=== PATIENT | male | born 1965 | race Caucasian/White ===

== ENCOUNTER 2019-05-31 19:05 | Emergency (ER) | payer MEDICARE ==
[2019-05-31] MEDS ORDERED: Sodium Chloride 0.9% 1000 ML 1,000 ML IV STA (19:23)
[2019-05-31] MEDS ORDERED: Keppra 500 MG/5 ML*** 1,000 MG in D5w 100ML Mini Bag 100 ML 100 ML IV ONE (19:23)
--- NOTE | 2019-05-31 19:23 | ERPHSYRPT ---
- History of Present Illness Time Seen by Provider: 05/31/19 19:19 Source: patient, family, EMS Exam Limitations: clinical condition Timing/Duration: today Severity: severe Deficits: no difficulties Baseline/Normal Cognition: alert oriented x 3 Current Cognition: poor alertness Baseline Gait: walks w/o assistance Associated Symptoms: seizures Allergies/Adverse Reactions: Penicillins Allergy (Verified 05/31/19 19:55) - Review of Systems Constitutional: No Fever, No Chills Eyes: No Symptoms Ears, Nose, & Throat: No Symptoms Respiratory: No Cough, No Dyspnea Cardiac: No Chest Pain, No Edema, No Syncope Abdominal/Gastrointestinal: No Abdominal Pain, No Nausea, No Vomiting, No Diarrhea Genitourinary Symptoms: No Dysuria Musculoskeletal: No Back Pain, No Neck Pain Skin: No Rash Neurological: Seizure, No Dizziness, No Focal Weakness, No Sensory Changes Psychological: No Symptoms Endocrine: No Symptoms Hematologic/Lymphatic: No Symptoms Immunological/Allergic: No Symptoms All Other Systems: Reviewed and Negative - Past Medical History Pertinent Past Medical History: Yes Neurological History: Other (remote head injury years ago) - Nursing Vital Signs Nursing Vital Signs: Initial Vital Signs Temperature 98.4 F 05/31/19 19:08 Pulse Rate 99 H 05/31/19 19:08 Respiratory Rate 16 05/31/19 19:08 Blood Pressure 147/77 05/31/19 19:08 O2 Sat by Pulse Oximetry 100 05/31/19 19:08 - Sorin Coma Scale Best Eye Response (Sorin): (4) open spontaneously Best Verbal Response (Sorin): (2) incomprehsible sounds Best Motor Response (Sorin): (5) localizes to pain [place] Total: 11 - Physical Exam General Appearance: moderate distress, other (post ictal) Eye Exam: bilateral eye: PERRL, EOMI Ears, Nose, Throat Exam: normal ENT inspection, moist mucous membranes Neck Exam: normal inspection, non-tender, supple Respiratory: normal breath sounds, lungs clear, airway intact, No respiratory distress Cardiovascular: regular rate/rhythm, No edema Gastrointestinal: soft, No tenderness, No distention Back Exam: normal inspection Extremity Exam: normal inspection, No pedal edema 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, 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 Coordination/Gait: normal finger to nose, normal gait Skin Exam: normal color, warm, dry, No rash - Course Nursing assessment & vital signs reviewed: Yes EKG Interpreted by Me: Sinus Rhythm, NORMAL AXIS, Non-specific ST Changes - CT Exams Head CT Interpretation: Tele-radiologist Report, No/Intracranial Hemorrhag, Old Stroke, Other Cervical Spine CT Interpretation: Tele-radiologist Report, No Fracture, Other (congenital fusion) Abdomen/Pelvis CT Interpretation: Tele-radiologist Report, No appendicitis, Other (cplon air fluid levels and stool partial obs) Ordered Tests: Active Orders 24 hr Category Date Time Status Accucheck STAT Care 05/31/19 19:23 Active EKG-ER Only STAT Care 05/31/19 19:23 Active Oxygen-ED Only Nasal Cannula 2 lpm Care 05/31/19 21:12 Active Pulse Oximetry (ED) STAT Care 05/31/19 19:23 Active Rectal Temperature STAT Care 05/31/19 19:23 Active ABDOMEN AND PELVIS W/0 CONTRAS [CT] Stat Exams 05/31/19 21:20 Taken CERVICAL SPINE WO CONTRAST [CT] Stat Exams 05/31/19 19:50 Taken CHEST 1 VIEW (PORTABLE) Stat Exams 05/31/19 21:19 Taken HEAD WITHOUT CONTRAST [CT] Stat Exams 05/31/19 19:24 Taken ACETAMINOPHEN Stat Lab 05/31/19 22:30 Completed BLOOD CULTURE Stat Lab 05/31/19 19:30 Received BLOOD CULTURE Stat Lab 05/31/19 21:27 Received CBC W DIFF Stat Lab 05/31/19 19:41 Completed CK (IN-HOUSE) [CK-Creatinine Phosphokinase] Stat Lab 05/31/19 19:45 Completed CMP Stat Lab 05/31/19 19:41 Completed CULTURE,URINE Stat Lab 05/31/19 20:14 Received ETHYL ALCOHOL Stat Lab 05/31/19 22:30 Completed Lactic Acid Stat Lab 05/31/19 19:38 Completed Lactic Acid Stat Lab 05/31/19 21:30 Completed SALICYLATE Stat Lab 05/31/19 22:30 Completed TROPONIN Q3H Lab 05/31/19 19:41 Completed TROPONIN Q3H Lab 05/31/19 21:24 Completed TROPONIN Q3H Lab 06/01/19 01:30 Ordered TROPONIN Q3H Lab 06/01/19 04:30 Ordered TROPONIN Q3H Lab 06/01/19 07:30 Ordered UA W/RFX UR CULTURE Stat Lab 05/31/19 20:14 Completed Urine Triage Profile Stat Lab 05/31/19 22:49 Completed VENOUS BLOOD GAS Stat Lab 05/31/19 21:31 Completed Medication Summary Discontinued Medications Generic Name Dose Route Start Last Admin Trade Name Albaro PRN Reason Stop Dose Admin Aztreonam Confirm 05/31/19 21:13 Azactam 1 Gm Administered 05/31/19 21:14 Dose 1 gm .ROUTE .STK-MED ONE Fosphenytoin Sodium Confirm 05/31/19 22:01 Cerebyx 50 Mg/Ml Administered 05/31/19 22:02 Dose 500 mg .ROUTE .STK-MED ONE Fosphenytoin Sodium Confirm 05/31/19 22:01 Cerebyx 50 Mg/Ml Administered 05/31/19 22:02 Dose 500 mg .ROUTE .STK-MED ONE Levetiracetam 1,000 mg/ 110 mls @ 400 mls/hr 05/31/19 19:23 05/31/19 19:54 Dextrose IV 05/31/19 19:39 400 mls/hr STAT ONE Administration Sodium Chloride 1,000 mls @ 999 mls/hr 05/31/19 19:23 05/31/19 21:04 Sodium Chloride 0.9% 1000 Ml IV 05/31/19 20:23 Infused .Q1H1M STA Infusion Sodium Chloride Confirm 05/31/19 19:39 Sodium Chloride 0.9% 1000 Ml Administered 05/31/19 19:40 Dose 1,000 mls @ ud .ROUTE .STK-MED ONE Dextrose Confirm 05/31/19 19:39 D5w 100ml Mini Bag 100 Ml Administered 05/31/19 19:40 Dose 100 mls @ ud IV .STK-MED ONE Aztreonam 1 gm in 100 mls @ 200 mls/hr 05/31/19 20:26 05/31/19 21:54 Azactam 1 Gm/100 Ml D5w IV 05/31/19 20:55 Infused STAT STA Infusion Dextrose Confirm 05/31/19 21:13 D5w 100ml Mini Bag 100 Ml Administered 05/31/19 21:14 Dose 100 mls @ ud IV .STK-MED ONE Fosphenytoin Sodium 1,000 mg/ 120 mls @ 240 mls/hr 05/31/19 21:45 05/31/19 22 :08 Sodium Chloride IV 05/31/19 22:14 240 mls/hr STAT ONE Administration Sodium Chloride Confirm 05/31/19 22:02 Sodium Chloride 0.9% 100 Ml Ivpb Administered 05/31/19 22:03 Dose 100 mls @ ud IV .STK-MED ONE Levetiracetam Confirm 05/31/19 19:39 Keppra 500 Mg/5 Ml Administered 05/31/19 19:40 Dose 1,000 mg .ROUTE .STK-MED ONE Lab/Rad Data: Laboratory Result Diagrams 05/31/19 19:41 05/31/19 19:41 Laboratory Results 05/31/19 05/31/19 05/31/19 Range/Units 22:49 22:30 21:31 WBC (4.0-10.5) K/mm3 RBC (4.1-5.6) M/mm3 Hgb (12.5-18.0) gm/dl Hct (42-50) % MCV (78-100) fl MCH (26-32) pg MCHC (32-36) g/dl RDW (11.5-14.0) % Plt Count (150-450) K/mm3 MPV (6-9.5) fl Gran % (36.0-66.0) % Eos # (Auto) (0-0.5) Absolute Lymphs (auto) (1.0-4.6) Absolute Monos (auto) (0.0-1.3) Lymphocytes % (24.0-44.0) % Monocytes % (0.0-12.0) % Eosinophils % (0.00-5.0) % Basophils % (0.0-0.4) % Absolute Granulocytes (1.4-6.9) Basophils # (0-0.4) pO2/FiO2 Ratio 32.0 % VBG pH 7.24 L* (7.32-7.42) VBG pCO2 at Pat Temp 52 (42-55) mm/Hg VBG pO2 at Pat Temp 31 (25-40) mm/Hg VBG HCO3 22.3 (22-28) meq/L VBG O2 Sat (Nikki) 63.9 L (95-100) VBG Base Excess -5.6 L (-2.0-2.0) VBG Hemoglobin 14.4 VBG Carboxyhemoglobin 2.0 (0.0-6.9) % T HGB POC Potassium 4.6 (3.5-5.1) Sodium (137-145) mmol/L Potassium (3.5-5.1) mmol/L Chloride (98-107) mmol/L Carbon Dioxide (22-30) mmol/L Anion Gap (5-15) MEQ/L BUN (9-20) mg/dL Creatinine (0.66-1.25) mg/dL Estimated GFR ML/MIN Glucose (74-106) mg/dL Lactic Acid (0.4-2.0) Calcium (8.4-10.2) mg/dL Total Bilirubin (0.2-1.3) mg/dL AST (17-59) U/L ALT (0-50) U/L Alkaline Phosphatase (38-126) U/L Creatine Kinase (55-170) U/L Troponin I (0.000-0.034) ng/mL Serum Total Protein (6.3-8.2) g/dL Albumin (3.5-5.0) g/dL Urine Color (YELLOW) Urine Appearance (CLEAR) Urine pH (5-6) Ur Specific [place] (1.005-1.025) Urine Protein (Negative) Urine Ketones (NEGATIVE) Urine Blood (0-5) Sam/ul Urine Nitrite (NEGATIVE) Urine Bilirubin (NEGATIVE) Urine Urobilinogen (0-1) mg/dL Ur Leukocyte Esterase (NEGATIVE) Urine WBC (Auto) (0-5) /HPF Urine RBC (Auto) (0-2) /HPF U Epithel Cells (Auto) (FEW) /HPF Urine Bacteria (Auto) (NEGATIVE) /HPF Urine Mucus (Auto) (NEGATIVE) /HPF Urine Culture Reflexed (NO) Urine Glucose (NEGATIVE) mg/dL Salicylates < 1.0 L (2-20) mg/dL Urine Opiates Level NEGATIVE (NEGATIVE) Ur Methadone NEGATIVE (NEGATIVE) Acetaminophen < 10 L (10-30) ug/ml Urine Barbiturates NEGATIVE (NEGATIVE) Ur Phencyclidine (PCP) NEGATIVE (NEGATIVE) Urine Amphetamine NEGATIVE (NEGATIVE) U Benzodiazepine Level NEGATIVE (NEGATIVE) Urine Cocaine NEGATIVE (NEGATIVE) Urine Marijuana (THC) NEGATIVE (NEGATIVE) Ethyl Alcohol < 10 (0-10) mg/dL 05/31/19 05/31/19 05/31/19 Range/Units 21:30 21:24 20:14 WBC (4.0-10.5) K/mm3 RBC (4.1-5.6) M/mm3 Hgb (12.5-18.0) gm/dl Hct (42-50) % MCV (78-100) fl MCH (26-32) pg MCHC (32-36) g/dl RDW (11.5-14.0) % Plt Count (150-450) K/mm3 MPV (6-9.5) fl Gran % (36.0-66.0) % Eos # (Auto) (0-0.5) Absolute Lymphs (auto) (1.0-4.6) Absolute Monos (auto) (0.0-1.3) Lymphocytes % (24.0-44.0) % Monocytes % (0.0-12.0) % Eosinophils % (0.00-5.0) % Basophils % (0.0-0.4) % Absolute Granulocytes (1.4-6.9) Basophils # (0-0.4) pO2/FiO2 Ratio % VBG pH (7.32-7.42) VBG pCO2 at Pat Temp (42-55) mm/Hg VBG pO2 at Pat Temp (25-40) mm/Hg VBG HCO3 (22-28) meq/L VBG O2 Sat (Nikki) (95-100) VBG Base Excess (-2.0-2.0) VBG Hemoglobin VBG Carboxyhemoglobin (0.0-6.9) % T HGB POC Potassium (3.5-5.1) Sodium (137-145) mmol/L Potassium (3.5-5.1) mmol/L Chloride (98-107) mmol/L Carbon Dioxide (22-30) mmol/L Anion Gap (5-15) MEQ/L BUN (9-20) mg/dL Creatinine (0.66-1.25) mg/dL Estimated GFR ML/MIN Glucose (74-106) mg/dL Lactic Acid 1.8 (0.4-2.0) Calcium (8.4-10.2) mg/dL Total Bilirubin (0.2-1.3) mg/dL AST (17-59) U/L ALT (0-50) U/L Alkaline Phosphatase (38-126) U/L Creatine Kinase (55-170) U/L Troponin I < 0.012 (0.000-0.034) ng/mL Serum Total Protein (6.3-8.2) g/dL Albumin (3.5-5.0) g/dL Urine Color STRAW (YELLOW) Urine Appearance CLEAR (CLEAR) Urine pH 5.0 (5-6) Ur Specific [place] 1.010 (1.005-1.025) Urine Protein 30 (Negative) Urine Ketones NEGATIVE (NEGATIVE) Urine Blood SMALL (0-5) Asm/ul Urine Nitrite NEGATIVE (NEGATIVE) Urine Bilirubin NEGATIVE (NEGATIVE) Urine Urobilinogen NEGATIVE (0-1) mg/dL Ur Leukocyte Esterase NEGATIVE (NEGATIVE) Urine WBC (Auto) NONE (0-5) /HPF Urine RBC (Auto) NONE (0-2) /HPF U Epithel Cells (Auto) NONE (FEW) /HPF Urine Bacteria (Auto) NONE SEEN (NEGATIVE) /HPF Urine Mucus (Auto) SLIGHT (NEGATIVE) /HPF Urine Culture Reflexed ORDERED SEPARATELY (NO) Urine Glucose >=500 (NEGATIVE) mg/dL Salicylates (2-20) mg/dL Urine Opiates Level (NEGATIVE) Ur Methadone (NEGATIVE) Acetaminophen (10-30) ug/ml Urine Barbiturates (NEGATIVE) Ur Phencyclidine (PCP) (NEGATIVE) Urine Amphetamine (NEGATIVE) U Benzodiazepine Level (NEGATIVE) Urine Cocaine (NEGATIVE) Urine Marijuana (THC) (NEGATIVE) Ethyl Alcohol (0-10) mg/dL 05/31/19 05/31/19 05/31/19 Range/Units 19:45 19:41 19:41 WBC (4.0-10.5) K/mm3 RBC (4.1-5.6) M/mm3 Hgb (12.5-18.0) gm/dl Hct (42-50) % MCV (78-100) fl MCH (26-32) pg MCHC (32-36) g/dl RDW (11.5-14.0) % Plt Count (150-450) K/mm3 MPV (6-9.5) fl Gran % (36.0-66.0) % Eos # (Auto) (0-0.5) Absolute Lymphs (auto) (1.0-4.6) Absolute Monos (auto) (0.0-1.3) Lymphocytes % (24.0-44.0) % Monocytes % (0.0-12.0) % Eosinophils % (0.00-5.0) % Basophils % (0.0-0.4) % Absolute Granulocytes (1.4-6.9) Basophils # (0-0.4) pO2/FiO2 Ratio % VBG pH (7.32-7.42) VBG pCO2 at Pat Temp (42-55) mm/Hg VBG pO2 at Pat Temp (25-40) mm/Hg VBG HCO3 (22-28) meq/L VBG O2 Sat (Nikki) (95-100) VBG Base Excess (-2.0-2.0) VBG Hemoglobin VBG Carboxyhemoglobin (0.0-6.9) % T HGB POC Potassium (3.5-5.1) Sodium 139 (137-145) mmol/L Potassium 4.4 (3.5-5.1) mmol/L Chloride 108 H (98-107) mmol/L Carbon Dioxide 19 L (22-30) mmol/L Anion Gap 16.5 H (5-15) MEQ/L BUN 18 (9-20) mg/dL Creatinine 1.40 H (0.66-1.25) mg/dL Estimated GFR 56.1 ML/MIN Glucose 140 H (74-106) mg/dL Lactic Acid (0.4-2.0) Calcium 9.5 (8.4-10.2) mg/dL Total Bilirubin 0.50 (0.2-1.3) mg/dL AST 38 (17-59) U/L ALT 23 (0-50) U/L Alkaline Phosphatase 93 (38-126) U/L Creatine Kinase 305 H (55-170) U/L Troponin I < 0.012 (0.000-0.034) ng/mL Serum Total Protein 7.6 (6.3-8.2) g/dL Albumin 4.5 (3.5-5.0) g/dL Urine Color (YELLOW) Urine Appearance (CLEAR) Urine pH (5-6) Ur Specific [place] (1.005-1.025) Urine Protein (Negative) Urine Ketones (NEGATIVE) Urine Blood (0-5) Sam/ul Urine Nitrite (NEGATIVE) Urine Bilirubin (NEGATIVE) Urine Urobilinogen (0-1) mg/dL Ur Leukocyte Esterase (NEGATIVE) Urine WBC (Auto) (0-5) /HPF Urine RBC (Auto) (0-2) /HPF U Epithel Cells (Auto) (FEW) /HPF Urine Bacteria (Auto) (NEGATIVE) /HPF Urine Mucus (Auto) (NEGATIVE) /HPF Urine Culture Reflexed (NO) Urine Glucose (NEGATIVE) mg/dL Salicylates (2-20) mg/dL Urine Opiates Level (NEGATIVE) Ur Methadone (NEGATIVE) Acetaminophen (10-30) ug/ml Urine Barbiturates (NEGATIVE) Ur Phencyclidine (PCP) (NEGATIVE) Urine Amphetamine (NEGATIVE) U Benzodiazepine Level (NEGATIVE) Urine Cocaine (NEGATIVE) Urine Marijuana (THC) (NEGATIVE) Ethyl Alcohol (0-10) mg/dL 05/31/19 05/31/19 Range/Units 19:41 19:38 WBC 11.3 H (4.0-10.5) K/mm3 RBC 4.37 (4.1-5.6) M/mm3 Hgb 14.0 (12.5-18.0) gm/dl Hct 44.0 (42-50) % MCV 100.7 H (78-100) fl MCH 32.0 (26-32) pg MCHC 31.8 L (32-36) g/dl RDW 12.7 (11.5-14.0) % Plt Count 233 (150-450) K/mm3 MPV 10.0 H (6-9.5) fl Gran % 85.0 H (36.0-66.0) % Eos # (Auto) 0.05 (0-0.5) Absolute Lymphs (auto) 1.01 (1.0-4.6) Absolute Monos (auto) 0.60 (0.0-1.3) Lymphocytes % 8.9 L (24.0-44.0) % Monocytes % 5.3 (0.0-12.0) % Eosinophils % 0.4 (0.00-5.0) % Basophils % 0.4 (0.0-0.4) % Absolute Granulocytes 9.62 H (1.4-6.9) Basophils # 0.04 (0-0.4) pO2/FiO2 Ratio % VBG pH (7.32-7.42) VBG pCO2 at Pat Temp (42-55) mm/Hg VBG pO2 at Pat Temp (25-40) mm/Hg VBG HCO3 (22-28) meq/L VBG O2 Sat (Nikki) (95-100) VBG Base Excess (-2.0-2.0) VBG Hemoglobin VBG Carboxyhemoglobin (0.0-6.9) % T HGB POC Potassium (3.5-5.1) Sodium (137-145) mmol/L Potassium (3.5-5.1) mmol/L Chloride (98-107) mmol/L Carbon Dioxide (22-30) mmol/L Anion Gap (5-15) MEQ/L BUN (9-20) mg/dL Creatinine (0.66-1.25) mg/dL Estimated GFR ML/MIN Glucose (74-106) mg/dL Lactic Acid 2.7 H (0.4-2.0) Calcium (8.4-10.2) mg/dL Total Bilirubin (0.2-1.3) mg/dL AST (17-59) U/L ALT (0-50) U/L Alkaline Phosphatase (38-126) U/L Creatine Kinase (55-170) U/L Troponin I (0.000-0.034) ng/mL Serum Total Protein (6.3-8.2) g/dL Albumin (3.5-5.0) g/dL Urine Color (YELLOW) Urine Appearance (CLEAR) Urine pH (5-6) Ur Specific [place] (1.005-1.025) Urine Protein (Negative) Urine Ketones (NEGATIVE) Urine Blood (0-5) Sam/ul Urine Nitrite (NEGATIVE) Urine Bilirubin (NEGATIVE) Urine Urobilinogen (0-1) mg/dL Ur Leukocyte Esterase (NEGATIVE) Urine WBC (Auto) (0-5) /HPF Urine RBC (Auto) (0-2) /HPF U Epithel Cells (Auto) (FEW) /HPF Urine Bacteria (Auto) (NEGATIVE) /HPF Urine Mucus (Auto) (NEGATIVE) /HPF Urine Culture Reflexed (NO) Urine Glucose (NEGATIVE) mg/dL Salicylates (2-20) mg/dL Urine Opiates Level (NEGATIVE) Ur Methadone (NEGATIVE) Acetaminophen (10-30) ug/ml Urine Barbiturates (NEGATIVE) Ur Phencyclidine (PCP) (NEGATIVE) Urine Amphetamine (NEGATIVE) U Benzodiazepine Level (NEGATIVE) Urine Cocaine (NEGATIVE) Urine Marijuana (THC) (NEGATIVE) Ethyl Alcohol (0-10) mg/dL - Progress Progress: improved, re-examined Progress Note: 05/31/19 22:[address] 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 05/31/19 23:17 now waiting on teleneuro to be completed for inputs. 06/01/19 00:20 teleneuro not yet completed - will proceed with CTA head 06/01/19 00:43 discussed with teleneuro and CTA would not add to case - so cancelled-they feel unlikely any new CVA; they agree transfer to facility for further neuro eval; they feel he is stable and ready for transfer - spoke to Dr. Ramos on teleneuro 06/01/19 01:57 pt has regained consciousness and answers questions now with GCS of [address] [facility], and [place] , but no neuro at either ; discussed with [facility] and they had a neurologist , and hospitalist Dr. Salas has accepted pt in transfer after exchange of information; Discussed with Dr.: Other (Dr. Salas at [facility] ) Will see patient in: hospital (full admit) Counseled pt/family regarding: lab results, diagnosis, need for follow-up, rad results - Departure Departure Disposition: Transfer Clinical Impression: Seizure disorder Condition: Good Critical Care Time: Yes Critical Care Time(excluding separately billable procedures): Critcal > 194 mins (pt had AMS and required continuous one on one monitoring by nursing staff for 6 hours (360) minutes) Referrals: CAROLYN TAMEZ MD [Primary Care Provider] -
[2019-05-31] MEDS ORDERED: Sodium Chloride 0.9% 1000 ML 1,000 ML ONE (19:39)
[2019-05-31] MEDS ORDERED: Keppra 500 MG/5 ML ONE (19:39)
[2019-05-31] MEDS ORDERED: D5w 100ML Mini Bag 100 ML 100 ML IV ONE ×2 (19:39→21:13)
[2019-05-31 19:44] LABS: BASOPHIL % 0.4 % (0.0-0.4); Basophil (Absolute #) 0.04 (0-0.4); Eosinophil % 0.4 % (0.00-5.0); Eosinophil (Absolute #) 0.05 (0-0.5); Granulocyte Absolute (ANC) 9.62 (1.4-6.9); Lymphocyte (Absolute #) 1.01 (1.0-4.6); Lymphocytes % 8.9 % (24.0-44.0); Mean Cell Volume 100.7 fl (78-100); Mean Corpuscular Hgb Concent. 31.8 g/dl (32-36); Monocytes % 5.3 % (0.0-12.0); Platelet Count 233 K/mm3 (150-450); Red Blood Count 4.37 M/mm3 (4.1-5.6); Red Cell Distribution Width 12.7 % (11.5-14.0); White Blood Count 11.3 K/mm3 (4.0-10.5)
[2019-05-31 19:47] LABS: Lactic Acid 2.7 (0.4-2.0)
[2019-05-31 20:17] LABS: ALBUMIN 4.5 g/dL (3.5-5.0); ANION GAP 16.5 MEQ/L (5-15); BILIRUBIN,TOTAL 0.5 mg/dL (0.2-1.3); Calcium 9.5 mg/dL (8.4-10.2); Creatinine 1 1.4 mg/dL (0.66-1.25); Potassium 4.4 mmol/L (3.5-5.1); Total Protein 7.6 g/dL (6.3-8.2)
[2019-05-31 20:21] LABS: Appearance CLEAR (CLEAR); Bilirubin NEGATIVE (NEGATIVE); Blood SMALL Ery/ul (0-5); Glucose >=500 mg/dL (NEGATIVE); Ketones NEGATIVE (NEGATIVE); Leukocyte Esterase NEGATIVE (NEGATIVE); Mucus SLIGHT /HPF (NEGATIVE); Nitrite NEGATIVE (NEGATIVE); Protein,Urine Dip 30 (Negative); Urobilinogen NEGATIVE mg/dL (0-1)
[2019-05-31] MEDS ORDERED: Azactam 1 GM/100 ML D5W 1 GM/100 ML IVPB IV STA (20:26)
[2019-05-31 20:37] LABS: Bacteria NONE SEEN /HPF (NEGATIVE)
[2019-05-31] MEDS ORDERED: AZACTAM 1 GM ONE (21:13)
[2019-05-31] MEDS ORDERED: cereBYX 50 MG/ML*** 1,000 MG in Sodium Chloride 0.9% 100 ML IVPB 100 ML IV ONE (21:45)
[2019-05-31 21:46] LABS: VBG BASE EXCESS -5.6 (-2.0-2.0); VBG HCO3- 22.3 meq/L (22-28); VBG HEMOGLOBIN 14.4; VBG O2 SATURATION 63.9 (95-100); VBG POTASSIUM 4.6 (3.5-5.1)
[2019-05-31 21:47] LABS: VBG pH 7.24 (7.32-7.42)
[2019-05-31] MEDS ORDERED: cereBYX 50 MG/ML ONE ×2 (22:01)
[2019-05-31] MEDS ORDERED: Sodium Chloride 0.9% 100 ML IVPB 100 ML IV ONE (22:02)
[2019-05-31 22:47] LABS: ACETAMINOPHEN < 10 ug/ml (10-30); ETHYL ALCOHOL < 10 mg/dL (0-10); SALICYLATE < 1.0 mg/dL (2-20)
[2019-05-31 23:07] LABS: Amphetamine,Urine NEGATIVE (NEGATIVE); Barbiturate,Urine NEGATIVE (NEGATIVE); Benzodiazepine,Urine NEGATIVE (NEGATIVE); Cocaine,Urine NEGATIVE (NEGATIVE); Methadone,Urine NEGATIVE (NEGATIVE); Opiate,Urine NEGATIVE (NEGATIVE); PCP,Urine NEGATIVE (NEGATIVE); THC,Urine NEGATIVE (NEGATIVE)
[2019-06-01 01:17] VITALS: O2SAT 98
[2019-06-01 03:27] VITALS: BP 137/85; PULSE 98
--- NOTE | 2019-06-01 06:53 | XRAY ---
Indication: Acute mental status change. Seizure. Multiple contiguous axial images obtained through the head without contrast. Comparison: None Age-appropriate global atrophy and mild periventricular degenerative micro-ischemia bilaterally. Small remote appearing infarcts right cerebellum, left occipital lobe, and right caudate head. No acute intracranial hemorrhage, hydrocephalus, or mass effect. Fourth ventricle is midline. Bony calvarium intact. There is a indeterminant irregular partially calcified 2.7 x 2.2 x 1.7 cm soft tissue mass in the nasopharynx. Visualized paranasal sinuses and mastoid air cells are clear. Impression: 1. Aging brain including atrophy and degenerative micro-ischemia. 2. 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 3. No acute intracranial abnormalities. 4. Indeterminant partially calcified soft tissue mass in the nasopharynx. Recommend ENT consultation. Comment: Preliminary interpretation was made by [facility] who does not report additional old cerebellum/occipital infarcts and nasopharyngeal mass. CTDI 60.26
--- NOTE | 2019-06-01 06:54 | XRAY ---
Indication: Acute mental status change. Seizure. History congenital C-spine disease. Multiple contiguous axial images obtained through the cervical spine. Sagittal and coronal reformatted images obtained Comparison: None Axial images negative for acute fracture or suspicious bony lesions. Moderate/advanced multilevel degenerative changes including endplate spurring, C3-C4 degenerative vacuum disc, and bilateral degenerative facet hypertrophy. Tiny epidural air posterior to C4 also felt to be degenerative. Multilevel vertebral fusion felt to be congenital including fusion of the right 1-3 ribs. Sagittal and coronal reformatted images demonstrates moderate double curvature cervical thoracic scoliosis. No acute compression fracture, subluxation, or jumped facet. Normal appearing craniocervical junction. Visualized noncontrasted soft tissues including lung apices unremarkable. Impression: 1. Negative acute fracture/subluxation. 2. Multilevel degenerative changes. 3. Multilevel congenital fusion. Comment: Preliminary interpretation was made by [facility]. No critical discrepancy CTDI 20.80
--- NOTE | 2019-06-01 06:58 | XRAY ---
Indication: Acute mental status change. Seizure. "Tense abdomen.". Multiple contiguous axial images obtained through the abdomen and pelvis without contrast as ordered. Comparison: None Lung bases demonstrates bibasilar dependent atelectasis. No ventricular effusion. Heart is borderline enlarged. Fluid in the distal esophagus presumed from gastroesophageal reflux. Stomach is distended with food/fluid. Colon and lesser degree distal small bowel loops are moderately fluid distended throughout felt to be due to moderate rectal impaction. Mccall catheter in situ. No free fluid/air. Absent left kidney. Right kidney demonstrates benign appearing chunky cortical calcification. Remaining liver, gallbladder, spleen, and adrenal glands appear unremarkable for noncontrast exam. Mild aortoiliac calcifications without AAA. Osseous structures intact with degenerative changes throughout the spine and old left proximal femur fracture with 3 intact orthopedic screws. Impression: 1. Fluid distended colon and distal small bowel with rectal impaction. 2. Absent left kidney and Mccall catheter in situ. 3. Fluid in the distal esophagus presumed from gastroesophageal reflux. Comment: Preliminary interpretation was made by [facility]. No critical discrepancy CTDI 19.75
--- NOTE | 2019-06-01 07:00 | XRAY ---
Indication: Acute mental status change. Seizure. Comparison: None Portable chest is clear with incidental right apical calcified granuloma. Heart is borderline enlarged. Bony thorax intact with cervical thoracic scoliosis. Impression: Nonacute chest with chronic features.
== END 2019-06-01 03:10 | disposition short-term general hospital (02) ==
LOC: ED 19:05
DX: G40.909 Epilepsy, unspecified, not intractable, without status epilepticus (principal)
CPT/HCPCS: 70450; 72125; 74176; 80053; 80307; 81001; 82550; 82805; 82962; 83605; 84484; 85025; 87040; 87086; 93005; 96360; 96365; 96367; 99291; 99292; G0480; G0481; 36415; 71045; 94760; 99285; J1953; Q2009

== ENCOUNTER 2021-06-28 13:58 | Emergency (ER) | payer MEDICARE ==
[2021-06-28 14:08] VITALS: O2SAT 98
--- NOTE | 2021-06-28 14:12 | ERPHSYRPT ---
- History of Present Illness Time Seen by Provider: 06/28/21 14:11 Source: patient, EMS Exam Limitations: no limitations Physician History: This is a 55-year-old white male patient of Dr. Tamez and presents via EMS for what was called out shortness of breath. However, it appears there was some type of confusion per the patient. Patient ordinarily is seen daily by a home health service. However in the last few days, the patient states that the home health individual has not been at his house because of a positive Covid test. Patient states that he has had nasal congestion over the last 5 days. He denies adamantly, shortness of breath and chest pain. He does not have chest pain and he does not have shortness of breath. Patient does not want any specific testing. He does accept steroid and antibiotics. He does not want a Covid test. Timing/Duration: day(s) (5) Severity: mild Associated Symptoms: denies symptoms Allergies/Adverse Reactions: Penicillins Allergy (Verified 06/28/21 14:21) Hx Tetanus, Diphtheria Vaccination/Date Given: No () Hx Influenza Vaccination/Date Given: No Hx Pneumococcal Vaccination/Date Given: No Travel Risk - International Travel Have you traveled outside of the country in past 3 weeks: No - Coronavirus Screening Are you exhibiting any of the following symptoms?: No Close contact with a COVID-19 positive Pt in past 14-21 Days: Yes - Review of Systems Constitutional: No Symptoms Eyes: No Symptoms Ears, Nose, & Throat: Nose Congestion Respiratory: No Symptoms Cardiac: No Symptoms Abdominal/Gastrointestinal: No Symptoms Genitourinary Symptoms: No Symptoms Musculoskeletal: No Symptoms Skin: No Symptoms Neurological: No Symptoms Psychological: No Symptoms Endocrine: No Symptoms Hematologic/Lymphatic: No Symptoms Immunological/Allergic: No Symptoms All Other Systems: Reviewed and Negative - Past Medical History Pertinent Past Medical History: Yes Neurological History: Other (remote head injury years ago) Endocrine Medical History: Diabetes Type II Other Medical History: hx of head injury 8 yrs ago. congenital neck deformity. - Past Surgical History Other Surgical History: unknown - Social History Smoking Status: Unknown if ever smoked Drug Use: none - Nursing Vital Signs Nursing Vital Signs: Initial Vital Signs Temperature 98.6 F 06/28/21 14:06 Pulse Rate 114 H 06/28/21 14:06 Respiratory Rate 17 06/28/21 14:06 Blood Pressure 123/91 09/07/21 14:06 O2 Sat by Pulse Oximetry 98 06/28/21 14:06 Pain Scale Pain Intensity 0 - Physical Exam General Appearance: no apparent distress, alert Eye Exam: PERRL/EOMI, eyes nml inspection Ears, Nose, Throat Exam: normal ENT inspection, moist mucous membranes Neck Exam: normal inspection, non-tender, supple, full range of motion Respiratory Exam: normal breath sounds, lungs clear, airway intact, No chest tenderness, No respiratory distress Cardiovascular Exam: regular rate/rhythm, normal heart sounds, normal peripheral pulses Gastrointestinal/Abdomen Exam: soft, normal bowel sounds, No tenderness Rectal Exam: not done Back Exam: normal inspection, normal range of motion, No CVA tenderness Extremity Exam: normal inspection, normal range of motion, pelvis stable Neurologic Exam: alert, oriented x 3, cooperative, 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, normal mood/affect, nml cerebellar function, nml station & gait, sensation nml Skin Exam: normal color, warm, dry Lymphatic Exam: No adenopathy SpO2 Interpretation: normal SpO2: 98 O2 Delivery: Room Air - Course Nursing assessment & vital signs reviewed: Yes Ordered Tests: Active Orders 24 hr Category Date Time Status IV Insertion STAT Care 06/28/21 14:57 Active Medication Summary Generic Name Dose Route Start Last Admin Trade Name Freq PRN Reason Stop Dose Admin Ceftriaxone Sodium/Dextrose 1 g in 50 mls @ 100 mls/hr 06/28/21 14:47 06/28/21 15:02 Rocephin 1 Gm-D5w 50 Ml Bag IV 06/28/21 15:16 100 ml/hr STAT STA 100 mls/hr Administration Discontinued Medications Generic Name Dose Route Start Last Admin Trade Name Freq PRN Reason Stop Dose Admin Methylprednisolone Sodium 0 mg 06/28/21 14:48 06/28/21 15:01 Succinate 125 mg/ Sterile IV 06/28/21 14:49 125 mg Water 2 ml STAT ONE Administration Ceftriaxone Sodium/Dextrose Confirm 06/28/21 14:58 Rocephin 1 Gm-D5w 50 Ml Bag Administered 06/28/21 14:59 Dose 1 g in 50 mls @ ud IV .STK-MED ONE Methylprednisolone Sodium Succinate Confirm 06/28/21 14:58 Solu-Medrol Administered 06/28/21 14:59 Dose 125 mg .ROUTE .STK-MED ONE Sterile Water Confirm 06/28/21 14:58 Sterile H2o 10 Ml Administered 06/28/21 14:59 Dose 10 ml IJ .STK-MED ONE - Progress Progress: unchanged Counseled pt/family regarding: diagnosis, need for follow-up - Departure Departure Disposition: Home Clinical Impression: Sinusitis Condition: Stable Critical Care Time: No Referrals: CAROLYN TAMEZ MD [Primary Care Provider] - Additional Instructions: Take medication as prescribed. Follow-up with your primary care physician for further management. May use normal saline drops or decongestant drops per [id number] package instructions. Prescriptions: Prednisone 5 mg [Deltasone 5 mg] 5 mg PO TID #12 tablet Azithromycin 250 mg [Zithromax 250 MG TABLET] 250 mg PO ZPACK #6 tablet
[2021-06-28] MEDS ORDERED: ROCEPHIN 1 Gm-D5w 50 ml Bag** 1 G/50 ML IVPB IV STA (14:47)
[2021-06-28] MEDS ORDERED: solu-MEDROL 125 MG, Sterile H2O 10 ml 2 ML IV ONE ×2 (14:48)
[2021-06-28] MEDS ORDERED: Sterile H2O 10 ml IJ ONE (14:58)
[2021-06-28] MEDS ORDERED: ROCEPHIN 1 Gm-D5w 50 ml Bag** 1 G/50 ML IVPB IV ONE (14:58)
[2021-06-28] MEDS ORDERED: solu-MEDROL ONE (14:58)
[2021-06-28 15:05] VITALS: BP 150/89; PULSE 108
== END 2021-06-28 15:16 | disposition home or self-care (01) ==
LOC: ED 13:58
DX: J32.9 Chronic sinusitis, unspecified (principal)
CPT/HCPCS: 36000; 96374; 99284; J0696; J2930

== ENCOUNTER 2021-08-23 18:21 | Observation (INO) | payer MEDICARE ==
--- NOTE | 2021-08-23 18:22 | ERPHSYRPT ---
- History of Present Illness Time Seen by Provider: 08/23/21 18:22 Source: patient, EMS Physician History: This is a 55-year-old white male who has no past medical history, on no medications and has no known drug allergies and presents with a 2-to 3-day history of worsening shortness of breath. This morning, patient was experiencing some intermittent dizziness as well. He denies chest pain. He denies fever. He denies abdominal pain. He has had no nausea vomiting or diarrhea. Timing/Duration: day(s) (2 to 3), worse Severity: moderate Associated Symptoms: shortness of breath, weakness, other (Dizziness) Allergies/Adverse Reactions: Penicillins Allergy (Verified 06/28/21 14:21) Hx Tetanus, Diphtheria Vaccination/Date Given: No ([place]) Hx Influenza Vaccination/Date Given: No Hx Pneumococcal Vaccination/Date Given: No Travel Risk - International Travel Have you traveled outside of the country in past 3 weeks: No - Coronavirus Screening Are you exhibiting any of the following symptoms?: No Close contact with a COVID-19 positive Pt in past 14-21 Days: No - Vaccine Status Have you recieved a Covid-19 vaccination: No - Review of Systems Constitutional: Weakness Eyes: No Symptoms Ears, Nose, & Throat: No Symptoms Respiratory: Dyspnea Cardiac: No Symptoms Abdominal/Gastrointestinal: No Symptoms Genitourinary Symptoms: No Symptoms Musculoskeletal: No Symptoms Skin: No Symptoms Neurological: Dizziness Psychological: No Symptoms Endocrine: No Symptoms Hematologic/Lymphatic: No Symptoms Immunological/Allergic: No Symptoms All Other Systems: Reviewed and Negative - Past Medical History Pertinent Past Medical History: Yes Neurological History: Other (remote head injury years ago) Endocrine Medical History: Diabetes Type II Other Medical History: hx of head injury 8 yrs ago. congenital neck deformity. - Past Surgical History Past Surgical History: Yes Genitourinary: Kidney Surgery Other Surgical History: unknown - Social History Smoking Status: Unknown if ever smoked Exposure to second hand smoke: No Drug Use: none Patient Lives Alone: Yes - Nursing Vital Signs Nursing Vital Signs: Initial Vital Signs Temperature 98.0 F 08/23/21 18:46 Pulse Rate 110 H 08/23/21 18:46 Respiratory Rate 20 08/23/21 18:46 Blood Pressure 145/91 08/23/21 18:46 O2 Sat by Pulse Oximetry 98 08/23/21 18:46 Pain Scale Pain Intensity 0 - Physical Exam General Appearance: mild distress, alert, anxiety Eye Exam: PERRL/EOMI, eyes nml inspection Ears, Nose, Throat Exam: normal ENT inspection, moist mucous membranes Neck Exam: normal inspection, non-tender, supple, full range of motion Respiratory Exam: normal breath sounds, lungs clear, airway intact, No chest tenderness, No respiratory distress Cardiovascular Exam: regular rate/rhythm, normal heart sounds, normal peripheral pulses Gastrointestinal/Abdomen Exam: soft, normal bowel sounds, No tenderness Rectal Exam: not done Back Exam: normal inspection, normal range of motion, No CVA tenderness, No vertebral tenderness Extremity Exam: normal inspection, normal range of motion, pelvis stable Neurologic Exam: alert, oriented x 3, 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 The comparison EKG dated 05/31/2019 showed normal sinus rhythm. The mild sinus tachycardia on today's EKG is no.) Ordered Tests: Active Orders 24 hr Category Date Time Status Flight Mechanic STAT Care 08/23/21 18:40 Active EKG-ER Only STAT Care 08/23/21 18:39 Active Pulse Oximetry (ED) STAT Care 08/23/21 18:39 Active CHEST 1 VIEW (PORTABLE) Stat Exams 08/23/21 18:41 Taken BLOOD CULTURE Stat Lab 08/23/21 19:05 Received BMP Stat Lab 08/23/21 21:11 Completed CBC W DIFF Stat Lab 08/23/21 18:40 Completed CMP Stat Lab 08/23/21 18:40 Completed D-DIMER QUANTITATIVE Stat Lab 08/23/21 19:05 Completed INFLUENZA A+B AIRAM Stat Lab 08/23/21 19:05 Completed Lactic Acid Stat Lab 08/23/21 18:45 Completed Lactic Acid Stat Lab 08/23/21 20:51 Completed MAGNESIUM Stat Lab 08/23/21 18:40 Completed Grimes Screen Stat Lab 08/23/21 18:40 Completed NT PRO BNP Stat Lab 08/23/21 18:40 Completed PROTIME WITH INR Stat Lab 08/23/21 19:05 Completed TROPONIN Q3H Lab 08/23/21 18:40 Completed TROPONIN Q3H Lab 08/23/21 21:11 Completed TROPONIN Q3H Lab 08/24/21 00:45 Ordered TROPONIN Q3H Lab 08/24/21 03:45 Ordered TROPONIN Q3H Lab 08/24/21 06:45 Ordered Medication Summary Discontinued Medications Generic Name Dose Route Start Last Admin Trade Name Albaro PRN Reason Stop Dose Admin Furosemide 20 mg 08/23/21 20:07 08/23/21 20:17 Furosemide 20 Mg/Vial IV 08/23/21 20:08 20 mg STAT ONE Administration Furosemide Confirm 08/23/21 20:15 Furosemide 40 Mg/4 Ml Vial Administered 08/23/21 20:16 Dose 40 mg .ROUTE .STK-MED ONE Sodium Chloride 500 mls @ 500 mls/hr 08/23/21 19:18 08/23/21 19:32 Sodium Chloride 0.9% 500 Ml IV 08/23/21 20:17 500 mls/hr .Q1H ONE Administration Sodium Chloride Confirm 08/23/21 19:30 Sodium Chloride 0.9% 500 Ml Administered 08/23/21 19:31 Dose 500 mls @ ud IV .STK-MED ONE Lab/Rad Data: Laboratory Result Diagrams 08/23/21 18:40 08/23/21 21:11 Laboratory Results 08/23/21 08/23/21 08/23/21 Range/Units 21:12 21:11 21:11 WBC (4.0-10.5) K/mm3 RBC (4.1-5.6) M/mm3 Hgb (12.5-18.0) gm/dl Hct (42-50) % MCV (78-100) fl MCH (26-32) pg MCHC (32-36) g/dl RDW (11.5-14.0) % Plt Count (150-450) K/mm3 MPV (7.5-11.0) fl Gran % (36.0-66.0) % Eos # (Auto) (0-0.5) Absolute Lymphs (auto) (1.0-4.6) Absolute Monos (auto) (0.0-1.3) Lymphocytes % (24.0-44.0) % Monocytes % (0.0-12.0) % Eosinophils % (0.00-5.0) % Basophils % (0.0-0.4) % Absolute Granulocytes (1.4-6.9) Basophils # (0-0.4) PT (9.4-12.5) SECONDS INR (0.8-3.0) D-Dimer (215-500) ng/mL Sodium 134 L (137-145) mmol/L Potassium 4.1 (3.5-5.1) mmol/L Chloride 98 (98-107) mmol/L Carbon Dioxide 20 L (22-30) mmol/L Anion Gap 18.8 H (5-15) MEQ/L BUN 13 (9-20) mg/dL Creatinine 1.54 H (0.66-1.25) mg/dL Estimated GFR 49.9 ML/MIN Glucose 256 H (74-106) mg/dL Lactic Acid (0.4-2.0) Calcium 9.1 (8.4-10.2) mg/dL Magnesium (1.6-2.3) mg/dL Total Bilirubin (0.2-1.3) mg/dL AST (17-59) U/L ALT (0-50) U/L Alkaline Phosphatase (38-126) U/L Troponin I (0.000-0.034) ng/mL NT-Pro-B Natriuret Pep (0-900) pg/mL Serum Total Protein (6.3-8.2) g/dL Albumin (3.5-5.0) g/dL Monoscreen (Negative) Influenza Type A Ag (NEGATIVE) Influenza Type B Ag (NEGATIVE) SARS-CoV-2 (PCR) NEGATIVE (NEGATIVE) Slides for Path Review ABO Group Pending Rh Factor Pending Antibody Screen Pending Crossmatch Pending 08/23/21 08/23/21 08/23/21 Range/Units 21:11 20:51 19:05 WBC (4.0-10.5) K/mm3 RBC (4.1-5.6) M/mm3 Hgb (12.5-18.0) gm/dl Hct (42-50) % MCV (78-100) fl MCH (26-32) pg MCHC (32-36) g/dl RDW (11.5-14.0) % Plt Count (150-450) K/mm3 MPV (7.5-11.0) fl Gran % (36.0-66.0) % Eos # (Auto) (0-0.5) Absolute Lymphs (auto) (1.0-4.6) Absolute Monos (auto) (0.0-1.3) Lymphocytes % (24.0-44.0) % Monocytes % (0.0-12.0) % Eosinophils % (0.00-5.0) % Basophils % (0.0-0.4) % Absolute Granulocytes (1.4-6.9) Basophils # (0-0.4) PT (9.4-12.5) SECONDS INR (0.8-3.0) D-Dimer (215-500) ng/mL Sodium (137-145) mmol/L Potassium (3.5-5.1) mmol/L Chloride (98-107) mmol/L Carbon Dioxide (22-30) mmol/L Anion Gap (5-15) MEQ/L BUN (9-20) mg/dL Creatinine (0.66-1.25) mg/dL Estimated GFR ML/MIN Glucose (74-106) mg/dL Lactic Acid 3.9 H (0.4-2.0) Calcium (8.4-10.2) mg/dL Magnesium (1.6-2.3) mg/dL Total Bilirubin (0.2-1.3) mg/dL AST (17-59) U/L ALT (0-50) U/L Alkaline Phosphatase (38-126) U/L Troponin I < 0.012 (0.000-0.034) ng/mL NT-Pro-B Natriuret Pep (0-900) pg/mL Serum Total Protein (6.3-8.2) g/dL Albumin (3.5-5.0) g/dL Monoscreen (Negative) Influenza Type A Ag NEGATIVE (NEGATIVE) Influenza Type B Ag NEGATIVE (NEGATIVE) SARS-CoV-2 (PCR) (NEGATIVE) Slides for Path Review ABO Group Rh Factor Antibody Screen Crossmatch 08/23/21 08/23/21 08/23/21 Range/Units 19:05 18:45 18:40 WBC (4.0-10.5) K/mm3 RBC (4.1-5.6) M/mm3 Hgb (12.5-18.0) gm/dl Hct (42-50) % MCV (78-100) fl MCH (26-32) pg MCHC (32-36) g/dl RDW (11.5-14.0) % Plt Count (150-450) K/mm3 MPV (7.5-11.0) fl Gran % (36.0-66.0) % Eos # (Auto) (0-0.5) Absolute Lymphs (auto) (1.0-4.6) Absolute Monos (auto) (0.0-1.3) Lymphocytes % (24.0-44.0) % Monocytes % (0.0-12.0) % Eosinophils % (0.00-5.0) % Basophils % (0.0-0.4) % Absolute Granulocytes (1.4-6.9) Basophils # (0-0.4) PT 15.3 H (9.4-12.5) SECONDS INR 1.30 (0.8-3.0) D-Dimer 849 H* (215-500) ng/mL Sodium (137-145) mmol/L Potassium (3.5-5.1) mmol/L Chloride (98-107) mmol/L Carbon Dioxide (22-30) mmol/L Anion Gap (5-15) MEQ/L BUN (9-20) mg/dL Creatinine (0.66-1.25) mg/dL Estimated GFR ML/MIN Glucose (74-106) mg/dL Lactic Acid 5.6 H (0.4-2.0) Calcium (8.4-10.2) mg/dL Magnesium (1.6-2.3) mg/dL Total Bilirubin (0.2-1.3) mg/dL AST (17-59) U/L ALT (0-50) U/L Alkaline Phosphatase (38-126) U/L Troponin I (0.000-0.034) ng/mL NT-Pro-B Natriuret Pep (0-900) pg/mL Serum Total Protein (6.3-8.2) g/dL Albumin (3.5-5.0) g/dL Monoscreen NEGATIVE (Negative) Influenza Type A Ag (NEGATIVE) Influenza Type B Ag (NEGATIVE) SARS-CoV-2 (PCR) (NEGATIVE) Slides for Path Review ABO Group Rh Factor Antibody Screen Crossmatch 08/23/21 08/23/21 08/23/21 Range/Units 18:40 18:40 18:40 WBC 9.0 (4.0-10.5) K/mm3 RBC 3.35 L (4.1-5.6) M/mm3 Hgb 7.4 L (12.5-18.0) gm/dl Hct 26.4 L (42-50) % MCV 78.8 (78-100) fl MCH 22.1 L (26-32) pg MCHC 28.0 L (32-36) g/dl RDW 17.8 H (11.5-14.0) % Plt Count 794 H (150-450) K/mm3 MPV 10.6 (7.5-11.0) fl Gran % 74.7 H (36.0-66.0) % Eos # (Auto) 0.03 (0-0.5) Absolute Lymphs (auto) 1.30 (1.0-4.6) Absolute Monos (auto) 0.84 (0.0-1.3) Lymphocytes % 14.5 L (24.0-44.0) % Monocytes % 9.4 (0.0-12.0) % Eosinophils % 0.3 (0.00-5.0) % Basophils % 1.1 (0.0-0.4) % Absolute Granulocytes 6.69 (1.4-6.9) Basophils # 0.10 (0-0.4) PT (9.4-12.5) SECONDS INR (0.8-3.0) D-Dimer (215-500) ng/mL Sodium 132 L (137-145) mmol/L Potassium 3.9 (3.5-5.1) mmol/L Chloride 96 L (98-107) mmol/L Carbon Dioxide 18 L (22-30) mmol/L Anion Gap 21.0 H (5-15) MEQ/L BUN 14 (9-20) mg/dL Creatinine 1.58 H (0.66-1.25) mg/dL Estimated GFR 48.5 ML/MIN Glucose 314 H (74-106) mg/dL Lactic Acid (0.4-2.0) Calcium 9.4 (8.4-10.2) mg/dL Magnesium 2.0 (1.6-2.3) mg/dL Total Bilirubin 0.80 (0.2-1.3) mg/dL AST 53 (17-59) U/L ALT 22 (0-50) U/L Alkaline Phosphatase 121 (38-126) U/L Troponin I < 0.012 (0.000-0.034) ng/mL NT-Pro-B Natriuret Pep 8320 H (0-900) pg/mL Serum Total Protein 7.3 (6.3-8.2) g/dL Albumin 4.5 (3.5-5.0) g/dL Monoscreen (Negative) Influenza Type A Ag (NEGATIVE) Influenza Type B Ag (NEGATIVE) SARS-CoV-2 (PCR) (NEGATIVE) Slides for Path Review YES ABO Group Rh Factor Antibody Screen Crossmatch - Progress Progress: improved, re-examined Progress Note: 08/23/21 22:17 Medical decision making: This patient has symptomatic anemia with shortness of breath and dizziness. Patient did have a slightly elevated D-dimer. I originally was going to perform a CTA of the chest. However, when we discussed the CT of the chest and the use of contrast, the patient informed us that he only has 1 kidney. I do not think that this patient is having shortness of breath secondary to pulmonary embolism. It is likely due to his anemia and congestive heart failure. I do not want to put him on any anticoagulation therapy because of his symptomatic anemia and unknown source of bleed or blood loss. I had discussed these issues with Dr. Tamez, the patient's primary care physician. He agrees with this plan and we will transfuse packed red blood cells x2 units with Lasix in between the units and a dose after the second unit. Counseled pt/family regarding: lab results, diagnosis, need for follow-up, rad results - Departure Departure Disposition: In-patient Admission Clinical Impression: Symptomatic anemia, Congestive heart failure Condition: Stable Critical Care Time: Yes Critical Care Time(excluding separately billable procedures): Critical 30-74 mins (40 minutes critical care time) Referrals: CAROLYN TAMEZ MD [Primary Care Provider] - Follow up/PCP as directed Instructions: Heart Failure
[2021-08-23 19:05] LABS: ALBUMIN 4.5 g/dL (3.5-5.0); BILIRUBIN,TOTAL 0.8 mg/dL (0.2-1.3); Calcium 9.4 mg/dL (8.4-10.2); Creatinine 1 1.58 mg/dL (0.66-1.25); EST GLOMERULAR FILTRATION RATE 48.5 ML/MIN; Potassium 3.9 mmol/L (3.5-5.1); Total Protein 7.3 g/dL (6.3-8.2)
[2021-08-23] MEDS ORDERED: Sodium Chloride 0.9% 500 ML 500 ML IV ONE ×2 (19:18→19:30)
[2021-08-23 19:19] LABS: Absolute Neutrophil Ct (ANC) 6.69 (1.4-6.9); BASOPHIL % 1.1 % (0.0-0.4); Eosinophil % 0.3 % (0.00-5.0); Eosinophil (Absolute #) 0.03 (0-0.5); Hematocrit 26.4 % (42-50); Hemoglobin 7.4 gm/dl (12.5-18.0); Lymphocytes % 14.5 % (24.0-44.0); Mean Cell Volume 78.8 fl (78-100); Mean Corpuscular Hemoglobin 22.1 pg (26-32); Mean Platelet Volume 10.6 fl (7.5-11.0); Monocyte (Absolute #) 0.84 (0.0-1.3); Monocytes % 9.4 % (0.0-12.0); Neutrophil % 74.7 % (36.0-66.0); Platelet Count 794 K/mm3 (150-450); Red Blood Count 3.35 M/mm3 (4.1-5.6); Red Cell Distribution Width 17.8 % (11.5-14.0)
[2021-08-23 19:23] LABS: INR 1.3 (0.8-3.0); PROTIME 15.3 SECONDS (9.4-12.5)
[2021-08-23 19:48] LABS: INFLUENZA A NEGATIVE (NEGATIVE); INFLUENZA B NEGATIVE (NEGATIVE)
[2021-08-23] MEDS ORDERED: Lasix 20 MG/2 ML IV ONE ×3 (20:07→22:41)
[2021-08-23] MEDS ORDERED: Lasix 40 MG/4 ML ONE (20:15)
[2021-08-23 20:26] LABS: Slide Review 1 YES
[2021-08-23 21:30] LABS: ANION GAP 18.8 MEQ/L (5-15); Calcium 9.1 mg/dL (8.4-10.2); Creatinine 1 1.54 mg/dL (0.66-1.25); EST GLOMERULAR FILTRATION RATE 49.9 ML/MIN; Potassium 4.1 mmol/L (3.5-5.1)
[2021-08-23 22:27] LABS: ABO TYPING AB; Antibody Screen NEGATIVE (NEGATIVE); RH TYPING POSITIVE
[2021-08-23 22:29] LABS: CROSS MATCH (PRBC) COMPATIBLE (COMPATIBLE)
[2021-08-23] MEDS ORDERED: Zofran 4 MG/2 ML VIAL IV PRN (22:41)
[2021-08-23] MEDS ORDERED: TYLENOL 325 MG PO PRN (22:41)
[2021-08-23] MEDS ORDERED: Sodium Chloride 0.9% 1000 ML 1,000 ML ONE (23:27)
[2021-08-24] MEDS ORDERED: Lasix 20 MG/2 ML ONE (02:08)
[2021-08-24 06:38] LABS: Hematocrit 32.7 % (42-50); Mean Cell Volume 77.3 fl (78-100); Mean Corpuscular Hemoglobin 23.6 pg (26-32); Mean Corpuscular Hgb Concent. 30.6 g/dl (32-36); Mean Platelet Volume 9.8 fl (7.5-11.0); Platelet Count 673 K/mm3 (150-450); Red Blood Count 4.23 M/mm3 (4.1-5.6); Red Cell Distribution Width 17.4 % (11.5-14.0); White Blood Count 8.8 K/mm3 (4.0-10.5)
[2021-08-24 08:13] LABS: ANION GAP 17.7 MEQ/L (5-15); Calcium 8.8 mg/dL (8.4-10.2); Creatinine 1 1.65 mg/dL (0.66-1.25); EST GLOMERULAR FILTRATION RATE 46.1 ML/MIN; Potassium 3.9 mmol/L (3.5-5.1)
[2021-08-24 08:24] LABS: Lymphocytes 14 % (24-44); Monocyte 8 % (0.0-12.0); Neutrophils 78 % (36.-66.); Total Cells Counted 100
[2021-08-24 08:25] LABS: Hypochromia 3+; Microcytosis 1+
[2021-08-24 08:26] LABS: Platelet Estimate INCREASED (NORMAL); Polychromasia 1+
--- NOTE | 2021-08-24 09:06 | XRAY ---
Indication: Short of breath. Comparison: May 31, 2019. Portable chest rotated and side bent. New cardiomegaly, central vascular congestion, and mild/moderate bibasilar infiltrates/atelectasis/effusion concerning for cardiac decompensation/CHF. Superimposed pneumonia not completely excluded. 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
[2021-08-24 13:07] VITALS: BP 115/65; PULSE 92; O2SAT 98
--- NOTE | 2021-08-25 07:40 | PCM.SSS ---
History of Present Illness - Chief Complaint Chief Complaint: shortness of breath for 2-3 weeks History of Present Illness: is a 55 year old male.who has no past medical history, on no medications and has no known drug allergies and presents with a 2-to 3-day history of worsening shortness of breath. This morning, patient was experiencing some intermittent dizziness as well. He denies chest pain. He denies fever. He denies abdominal pain. He has had no nausea vomiting or di arrhea. Timing/Duration: day(s) (2 to 3), worse Severity: moderate Associated Symptoms: shortness of breath, weakness, other (Dizziness) - Review of Systems Constitutional: Weakness, No Fever, No Chills Eyes: No Symptoms Ears, Nose, & Throat: No Symptoms Respiratory: Short Of Breath, No Cough Cardiac: No Chest Pain, No Edema, No Syncope Abdominal/Gastrointestinal: No Abdominal Pain, No Nausea, No Vomiting, No Diarrhea Genitourinary Symptoms: No Dysuria Musculoskeletal: No Back Pain, No Neck Pain Skin: No Rash Neurological: No Dizziness, No Focal Weakness, No Sensory Changes Psychological: No Symptoms Endocrine: No Symptoms Hematologic/Lymphatic: No Symptoms Immunological/Allergic: No Symptoms Medications & Allergies Home Medications: Home Medication List Ferrous Sulfate [Iron] 325 mg PO DAILY #30 tablet 08/24/21 [Rx] Glimepiride 1 mg PO DAILY #30 tablet 08/24/21 [Rx] Allergies/Adverse Reactions: Allergies Allergy/AdvReac Type Severity Reaction Status Date / Time Penicillins Allergy Verified 08/23/21 22:40 - Past Medical History Past Medical History: Yes Neurological History: Other ENT History: No Pertinent History Cardiac History: No Pertinent History Respiratory History: No Pertinent History Endocrine Medical History: Diabetes Type II Musculoskelatal History: Arthritis GI Medical History: No Pertinent History History: No Pertinent History Pyscho-Social History: No Pertinent History Male Reproductive Disorders: No Pertinent History Comment: hx of head injury 8 yrs ago. congenital neck deformity. - Past Surgical History Past Surgical History: Yes Neuro Surgical History: Other Cardiac History: No Pertinent History Respiratory Surgery: No Pertinent History GI Surgical History: No Pertinent History Genitourinary Surgical Hx: Kidney Surgery Musculskeletal Surgical Hx: Joint Replacement Male Surgical History: No Pertinent History Other Surgical History: unknown - Social History Smoking Status: Never smoker Exposure to second hand smoke: No Alcohol: Occasionally Drug Use: none - Physical Exam Vital Signs: Vital Signs - 24 hr Temp Pulse Resp BP Pulse Ox 08/24/21 12:00 98.3 F 92 H 16 115/65 98 08/24/21 08:00 98.8 F 104 H 16 103/66 96 General Appearance: no apparent distress, alert Neurologic Exam: alert, oriented x 3, cooperative, normal mood/affect, nml cerebellar function, nml station & gait, sensation nml, No motor deficits Eye Exam: PERRL/EOMI, eyes nml inspection Ears, Nose, Throat Exam: normal ENT inspection, TMs normal, pharynx normal, moist mucous membranes Neck Exam: normal inspection, non-tender, supple, full range of motion Respiratory Exam: crackles/rales, No respiratory distress Cardiovascular Exam: regular rate/rhythm, normal heart sounds, normal peripheral pulses Gastrointestinal/Abdomen Exam: soft, normal bowel sounds, No tenderness, No mass Back Exam: normal inspection, normal range of motion, No CVA tenderness, No vertebral tenderness Extremity Exam: normal inspection, normal range of motion, pelvis stable Skin Exam: normal color, warm, dry, No rash Lymphatic Exam: No adenopathy Results - Labs Lab/Micro Results: Lab Results-Last 24 Hours 08/24/21 08/24/21 08/24/21 Range/Units 04:15 06:15 06:15 Segmented Neutrophils 78 H (36.-66.) % Lymphocytes (Manual) 14 L (24-44) % Monocytes (Manual) 8 (0.0-12.0) % Hypochromia 3+ Platelet Estimate INCREASED (NORMAL) RBC Morphology ABNORMAL Polychromasia 1+ Microcytosis 1+ Sodium 136 L (137-145) mmol/L Potassium 3.9 (3.5-5.1) mmol/L Chloride 97 L (98-107) mmol/L Carbon Dioxide 24 (22-30) mmol/L Anion Gap 17.7 H (5-15) MEQ/L BUN 14 (9-20) mg/dL Creatinine 1.65 H (0.66-1.25) mg/dL Estimated GFR 46.1 ML/MIN Glucose 284 H (74-106) mg/dL POC Glucometer (74 to 106) mg/dL Hemoglobin A1c 8.06 H (4.5-6.0) % Calcium 8.8 (8.4-10.2) mg/dL 08/24/21 Range/Units 11:48 Segmented Neutrophils (36.-66.) % Lymphocytes (Manual) (24-44) % Monocytes (Manual) (0.0-12.0) % Hypochromia Platelet Estimate (NORMAL) RBC Morphology Polychromasia Microcytosis Sodium (137-145) mmol/L Potassium (3.5-5.1) mmol/L Chloride (98-107) mmol/L Carbon Dioxide (22-30) mmol/L Anion Gap (5-15) MEQ/L BUN (9-20) mg/dL Creatinine (0.66-1.25) mg/dL Estimated GFR ML/MIN Glucose (74-106) mg/dL POC Glucometer 237 H (74 to 106) mg/dL Hemoglobin A1c (4.5-6.0) % Calcium (8.4-10.2) mg/dL - Radiology Impressions Radiology Exams & Impressions: Radiology Procedures Category Date Time Status CHEST 1 VIEW (PORTABLE) Stat Exams 08/23/21 18:41 Completed Assessment/Plan (1) Symptomatic anemia Status: Acute Assessment & Plan: Chief Complaint Diagnosis ANEMIA, CHF Allergies Allergy/AdvReac Type Severity Reaction Status Date / Time Penicillins Allergy Verified 08/23/21 22:40 Vital Signs (Last 24 hours) Temp Pulse Resp BP Pulse Ox 08/24/21 12:00 98.3 F 92 H 16 115/65 98 08/24/21 08:00 98.8 F 104 H 16 103/66 96 Home Medications Medication Instructions Recorded Confirmed Last Taken Type Ferrous Sulfate [Iron] 325 mg PO DAILY #30 tablet 08/24/21 Unknown Rx Glimepiride 1 mg PO DAILY #30 tablet 08/24/21 Unknown Rx Current Medications Discontinued Medications Generic Name Dose Route Start Last Admin Trade Name Freq PRN Reason Stop Dose Admin Acetaminophen 650 mg 08/23/21 22:41 Acetaminophen 325 Mg Tablet PO 09/22/21 22:40 Q4H PRN PRN PAIN, FEVER, HEADACHE Furosemide 20 mg 08/23/21 20:07 08/23/21 20:17 Furosemide 20 Mg/Vial IV 08/23/21 20:08 20 mg STAT ONE Administration Furosemide Confirm 08/23/21 20:15 Furosemide 40 Mg/4 Ml Vial Administered 08/23/21 20:16 Dose 40 mg .ROUTE .STK-MED ONE Furosemide 20 mg 08/23/21 22:28 08/24/21 02:10 Furosemide 20 Mg/Vial IV 08/23/21 22:29 20 mg AFTER LAST UNIT ONE Administration Furosemide 20 mg 08/23/21 22:41 08/24/21 04:56 Furosemide 20 Mg/Vial IV 08/23/21 22:42 20 mg BETWEEN UNITS ONE Administration Furosemide Confirm 08/24/21 02:08 Furosemide 20 Mg/Vial Administered 08/24/21 02:09 Dose 20 mg .ROUTE .STK-MED ONE Sodium Chloride 500 mls @ 500 mls/hr 08/23/21 19:18 08/23/21 19:32 Sodium Chloride 0.9% 500 Ml IV 08/23/21 20:17 500 mls/hr .Q1H ONE Administration Sodium Chloride Confirm 08/23/21 19:30 Sodium Chloride 0.9% 500 Ml Administered 08/23/21 19:31 Dose 500 mls @ ud IV .STK-MED ONE Sodium Chloride Confirm 08/23/21 23:27 Sodium Chloride 0.9% 1000 Ml Administered 08/23/21 23:28 Dose 1,000 mls @ ud .ROUTE .STK-MED ONE Ondansetron HCl 4 mg 08/23/21 22:41 Ondansetron Hcl 4 Mg/2 Ml Vial IV 09/22/21 22:40 Q6H PRN PRN NAUSEA/VOMITING Intake & Output (Last 24 hours) 08/22/21 08/23/21 08/24/21 08/25/21 11:59 11:59 11:59 11:59 Intake Total 240 240 Output Total 3275 Balance -3035 240 Weight 57.8 kg Laboratory Results (Last 24 hours) 08/24/21 08/24/21 08/24/21 11:48 06:15 06:15 Segmented Neutrophils 78 H Lymphocytes (Manual) 14 L Monocytes (Manual) 8 Hypochromia 3+ Platelet Estimate INCREASED RBC Morphology ABNORMAL Polychromasia 1+ Microcytosis 1+ Sodium 136 L Potassium 3.9 Chloride 97 L Carbon Dioxide 24 Anion Gap 17.7 H BUN 14 Creatinine 1.65 H Estimated GFR 46.1 Glucose 284 H POC Glucometer 237 H Hemoglobin A1c Calcium 8.8 08/24/21 04:15 Segmented Neutrophils Lymphocytes (Manual) Monocytes (Manual) Hypochromia Platelet Estimate RBC Morphology Polychromasia Microcytosis Sodium Potassium Chloride Carbon Dioxide Anion Gap BUN Creatinine Estimated GFR Glucose POC Glucometer Hemoglobin A1c 8.06 H Calcium Orders (Last 24 hours) Category Date Time Status Consistent Carbohydrate Diet 1999 Calorie Diet 08/24/21 Breakfast Completed POCT GLUCOSE Stat Lab 08/24/21 07:19 Completed POCT GLUCOSE Stat Lab 08/24/21 11:48 Completed Patient Care Notes (Last 24 hours) 08/24/21 10:25 Case Management Note by Tonia Ortez REFERRAL FAXED TO [facility]. REFERRAL ALSO FAXED TO [facility] TO SEE IF HE COULD G ET A SERVICE LIKE HELP AT HOME FOR DAILY LIFE ASSISTANCE. PATIENT ALSO GIVEN OPTIONS ON TRANSPORTATION D/T HIM DRIVING FREQUENTLY WITHOUT A LICENSE. Initialized on 08/24/21 10:25 - END OF NOTE 08/24/21 09:02 Nursing Note by Stacie Rowley pt refusing colonoscopy and speech eval. Initialized on 08/24/21 09:02 - END OF NOTE Code(s): D64.9 - ANEMIA, UNSPECIFIED (2) Congestive heart failure Status: Acute Qualifiers: Heart failure type: unspecified Heart failure chronicity: acute Qualified Code(s): I50.9 - Heart failure, unspecified Code(s): I50.9 - HEART FAILURE, UNSPECIFIED Hospital Summary - Hospital Course Hospital Course: Last Vital Signs Temp 98.3 F 08/24/21 12:00 Pulse 92 H 08/24/21 12:00 Resp 16 08/24/21 12:00 BP 115/65 08/24/21 12:00 Pulse Ox 98 08/24/21 12:00 Allergies Penicillins Allergy (Verified 08/23/21 22:40) Intake & Output 08/24/21 08/25/21 11:59 11:59 Intake Total 240 240 Output Total 3275 Balance -3035 240 Weight 57.8 kg Lab Tests 08/24/21 08/24/21 08/24/21 04:15 06:15 06:15 Segmented Neutrophils 78 H Lymphocytes (Manual) 14 L Monocytes (Manual) 8 Hypochromia 3+ Platelet Estimate INCREASED RBC Morphology ABNORMAL Polychromasia 1+ Microcytosis 1+ Sodium 136 L Potassium 3.9 Chloride 97 L Carbon Dioxide 24 Anion Gap 17.7 H BUN 14 Creatinine 1.65 H Estimated GFR 46.1 Glucose 284 H POC Glucometer Hemoglobin A1c 8.06 H Calcium 8.8 08/24/21 11:48 Segmented Neutrophils Lymphocytes (Manual) Monocytes (Manual) Hypochromia Platelet Estimate RBC Morphology Polychromasia Microcytosis Sodium Potassium Chloride Carbon Dioxide Anion Gap BUN Creatinine Estimated GFR Glucose POC Glucometer 237 H Hemoglobin A1c Calcium - Vitals & Intake/Output Vital Signs: Vital Signs Temperature 98.3 F 08/24/21 12:00 Pulse Rate 92 H 08/24/21 12:00 Respiratory Rate 16 08/24/21 12:00 Blood Pressure 115/65 08/24/21 12:00 O2 Sat by Pulse Oximetry 98 08/24/21 12:00 Intake & Output: Intake & Output 08/22/21 08/23/21 08/24/21 08/25/21 11:59 11:59 11:59 11:59 Intake Total 240 240 Output Total 3275 Balance -3035 240 Weight 57.8 kg - Lab Result Diagrams: 08/24/21 06:15 08/24/21 06:15 Lab Results-Last 24 Hrs: Lab Results-Last 24 Hours 08/24/21 08/24/21 08/24/21 Range/Units 04:15 06:15 06:15 Segmented Neutrophils 78 H (36.-66.) % Lymphocytes (Manual) 14 L (24-44) % Monocytes (Manual) 8 (0.0-12.0) % Hypochromia 3+ Platelet Estimate INCREASED (NORMAL) RBC Morphology ABNORMAL Polychromasia 1+ Microcytosis 1+ Sodium 136 L (137-145) mmol/L Potassium 3.9 (3.5-5.1) mmol/L Chloride 97 L (98-107) mmol/L Carbon Dioxide 24 (22-30) mmol/L Anion Gap 17.7 H (5-15) MEQ/L BUN 14 (9-20) mg/dL Creatinine 1.65 H (0.66-1.25) mg/dL Estimated GFR 46.1 ML/MIN Glucose 284 H (74-106) mg/dL POC Glucometer (74 to 106) mg/dL Hemoglobin A1c 8.06 H (4.5-6.0) % Calcium 8.8 (8.4-10.2) mg/dL 08/24/21 Range/Units 11:48 Segmented Neutrophils (36.-66.) % Lymphocytes (Manual) (24-44) % Monocytes (Manual) (0.0-12.0) % Hypochromia Platelet Estimate (NORMAL) RBC Morphology Polychromasia Microcytosis Sodium (137-145) mmol/L Potassium (3.5-5.1) mmol/L Chloride (98-107) mmol/L Carbon Dioxide (22-30) mmol/L Anion Gap (5-15) MEQ/L BUN (9-20) mg/dL Creatinine (0.66-1.25) mg/dL Estimated GFR ML/MIN Glucose (74-106) mg/dL POC Glucometer 237 H (74 to 106) mg/dL Hemoglobin A1c (4.5-6.0) % Calcium (8.4-10.2) mg/dL - Radiology Exams Ordered Rad Exams-Entire Visit: Radiology Procedures Category Date Time Status CHEST 1 VIEW (PORTABLE) Stat Exams 08/23/21 18:41 Completed - Procedures and Test Procedures and Tests throughout Hospitalization: Therapy Orders & Screens 08/23/21 22:41 EKG REPEAT IN AM Comment: - Discharge Discharge Date: 08/24/21 Disposition: HOME HEALTH SERVICE Condition: Stable Prescriptions: New Glimepiride 1 mg PO DAILY #30 tablet Ferrous Sulfate [Iron] 325 mg PO DAILY #30 tablet Instructions: Gastrointestinal Bleeding (DC), Preventing Falls Additional Instructions: REFERRAL WAS FAXED TO [facility]. THEIR PHONE NUMBER IS [phone] Follow up with: CAROLYN TAMEZ MD [Primary Care Provider] - 08/31/21 10:30 am (at [place])
== END 2021-08-24 13:45 | disposition home health service (06) ==
LOC: ED 18:21 → INTOOBSV 22:34 → MED SURG 22:34
PROVIDERS: ADMIT General Practice; ATTEND General Practice
DX: D64.9 Anemia, unspecified (principal); I50.9 Heart failure, unspecified; R42 Dizziness and giddiness; R53.1 Weakness; E11.9 Type 2 diabetes mellitus without complications; Z20.822 Contact with and (suspected) exposure to COVID-19; Z79.899 Other long term (current) drug therapy
CPT/HCPCS: 36415; 36430; 71045; 80048; 80053; 82947; 83036; 83605; 83735; 83880; 84484; 85025; 85379; 85610; 86308; 86850; 86900; 86901; 86922; 87040; 87400; 93005; 93041; 93268; 94760; 96374; 99285; 99291; G0378; P9016; U0003; J1940

== ENCOUNTER 2021-09-02 15:25 | Emergency (ER) | payer MEDICARE ==
[2021-09-02] MEDS ORDERED: Sodium Chloride 0.9% 1000 ML 1,000 ML IV SCH (15:45)
[2021-09-02] MEDS ORDERED: Sodium Chloride 0.9% 1000 ML 1,000 ML ONE (15:49)
[2021-09-02 16:04] LABS: BASOPHIL % 1.4 % (0.0-0.4); Basophil (Absolute #) 0.14 (0-0.4); Eosinophil % 0.8 % (0.00-5.0); Eosinophil (Absolute #) 0.08 (0-0.5); Hemoglobin 10.1 gm/dl (12.5-18.0); Lymphocyte (Absolute #) 1.47 (1.0-4.6); Lymphocytes % 14.3 % (24.0-44.0); Mean Cell Volume 81.2 fl (78-100); Mean Corpuscular Hemoglobin 23.4 pg (26-32); Mean Corpuscular Hgb Concent. 28.9 g/dl (32-36); Mean Platelet Volume 9.3 fl (7.5-11.0); Monocyte (Absolute #) 0.88 (0.0-1.3); Monocytes % 8.6 % (0.0-12.0); Neutrophil % 74.9 % (36.0-66.0); Platelet Count 577 K/mm3 (150-450); Red Blood Count 4.31 M/mm3 (4.1-5.6); Red Cell Distribution Width 19.6 % (11.5-14.0); White Blood Count 10.3 K/mm3 (4.0-10.5)
[2021-09-02 16:24] LABS: INR 1.2 (0.8-3.0); PROTIME 14.2 SECONDS (9.4-12.5); PTT 26.7 SECONDS (25.1-36.5)
[2021-09-02 16:27] LABS: ALBUMIN 4.2 g/dL (3.5-5.0); ANION GAP 16.7 MEQ/L (5-15); BILIRUBIN,TOTAL 0.9 mg/dL (0.2-1.3); Creatinine 1 1.47 mg/dL (0.66-1.25); EST GLOMERULAR FILTRATION RATE 52.7 ML/MIN; MAGNESIUM 2.2 mg/dL (1.6-2.3); Potassium 4.4 mmol/L (3.5-5.1)
--- NOTE | 2021-09-02 16:44 | XRAY ---
Indication: Short of breath. Comparison: August 23, 2021. Portable chest demonstrates grossly stable cardiomegaly, central vascular congestion, and bibasilar infiltrates/atelectasis/effusions favoring cardiac decompensation/CHF. Again superimposed pneumonia not completely excluded. No new cardiopulmonary abnormalities.
--- NOTE | 2021-09-02 17:54 | ERPHSYRPT ---
- History of Present Illness Time Seen by Provider: 09/02/21 15:35 Source: patient Exam Limitations: no limitations Patient Subjective Stated Complaint: SOB Triage Nursing Assessment: Patient brought back to ED and transferred self to bed. Patient A+O x3. Patient's skin pale, warm and dry. Patient complains of SOB for the past two days. Patient complains of occasional non productive cough. Patient complains of weakness also. Lungs clear a/p jaqueline. Patient denies pain or discomfort. Physician History: Patient is a 55-year-old male who presents with a complaint of shortness of breath. He was recently hospitalized and given 2 units of blood because of a hemoglobin below 7. He refused a scope. He presents today with complaint of shortness of breath. Patient is a poor historian Timing/Duration: yesterday Activities at Onset: none Severity of Dyspnea-Max: moderate Severity of Dyspnea-Current: moderate Possible Cause: occasional episodes Modifying Factors: Improves With: coughing Associated Symptoms: cough Allergies/Adverse Reactions: Penicillins Allergy (Verified 09/02/21 15:28) Hx Tetanus, Diphtheria Vaccination/Date Given: No () Hx Influenza Vaccination/Date Given: No Hx Pneumococcal Vaccination/Date Given: No Immunizations Up to Date: Yes Travel Risk - International Travel Have you traveled outside of the country in past 3 weeks: No - Coronavirus Screening Are you exhibiting any of the following symptoms?: No Close contact with a COVID-19 positive Pt in past 14-21 Days: No - Vaccine Status Have you recieved a Covid-19 vaccination: (Unknown.) - Review of Systems Constitutional: No Fever, No Chills Eyes: No Symptoms Ears, Nose, & Throat: No Symptoms Respiratory: Cough, Dyspnea Cardiac: No Chest Pain, No Edema, No Syncope Abdominal/Gastrointestinal: No Abdominal Pain, No Nausea, No Vomiting, No Diarrhea Genitourinary Symptoms: No Dysuria Musculoskeletal: No Back Pain, No Neck Pain Skin: No Rash Neurological: No Dizziness, No Focal Weakness, No Sensory Changes Psychological: No Symptoms Endocrine: No Symptoms All Other Systems: Reviewed and Negative - Past Medical History Pertinent Past Medical History: Yes Neurological History: Other ENT History: No Pertinent History Cardiac History: No Pertinent History Respiratory History: No Pertinent History Endocrine Medical History: Diabetes Type II Musculoskeletal History: Arthritis GI Medical History: No Pertinent History History: No Pertinent History Psycho-Social History: No Pertinent History Male Reproductive Disorders: No Pertinent History Other Medical History: hx of head injury 8 yrs ago. congenital neck deformity. - Past Surgical History Past Surgical History: Yes Neuro Surgical History: Other Cardiac: No Pertinent History Respiratory: No Pertinent History Gastrointestinal: No Pertinent History Genitourinary: Kidney Surgery Musculoskeletal: Joint Replacement Male Surgical History: No Pertinent History Other Surgical History: unknown - Social History Smoking Status: Never smoker Exposure to second hand smoke: No Drug Use: none Patient Lives Alone: Yes - Nursing Vital Signs Nursing Vital Signs: Initial Vital Signs Temperature 97.1 F 09/02/21 15:29 Pulse Rate 111 H 09/02/21 15:29 Respiratory Rate 20 09/02/21 15:29 Blood Pressure 135/72 09/02/21 15:29 O2 Sat by Pulse Oximetry 100 09/02/21 15:29 Pain Scale Pain Intensity 0 - Physical Exam General Appearance: mild distress Eye Exam: eyes nml inspection (Right eye is somewhat depressed and to the side secondary to defect) Neck Exam: normal inspection, supple Respiratory Exam: respiratory distress, airway intact, crackles/rales (Right base), No chest tenderness Cardiovascular/Chest Exam: normal heart sounds, regular rate/rhythm Abdominal/Gastrointestinal Exam: soft, No tenderness, No distention, No mass Extremity Exam: non-tender, normal range of motion, normal inspection, no calf tenderness, no pedal edema Neurologic Exam: alert, oriented x 3, cooperative, weapons specialist II-XII nml as tested, sensation nml, No motor deficits Skin Exam: normal color, warm, No dry SpO2 Interpretation: normal SpO2: 98 O2 Delivery: Room Air - Course Nursing assessment & vital signs reviewed: Yes EKG Interpreted by Me: RATE (111), Sinus Tach, NORMAL AXIS, NORMAL INTERVALS, Other (Poor R wave progression) - Radiology Exams Chest X-ray Interpretation: Interpreted by me, Other (He has some borderline cardiomegaly pleural effusion on the right with an infiltrate there is scoliosis of the thoracic spine) Ordered Tests: Active Orders 24 hr Category Date Time Status Electronic Assembly STAT Care 09/02/21 15:44 Active EKG-ER Only STAT Care 09/02/21 15:44 Active IV Insertion STAT Care 09/02/21 15:44 Active CHEST 1 VIEW (PORTABLE) Stat Exams 09/02/21 15:56 Completed CBC W DIFF Stat Lab 09/02/21 16:00 Completed CMP Stat Lab 09/02/21 16:00 Completed D-DIMER QUANTITATIVE Stat Lab 09/02/21 16:00 Completed Lactic Acid Stat Lab 09/02/21 15:59 Completed MAGNESIUM Stat Lab 09/02/21 16:00 Completed NT PRO BNP Stat Lab 09/02/21 16:00 Completed PROTIME WITH INR Stat Lab 09/02/21 16:00 Completed PTT Stat Lab 09/02/21 16:00 Completed TROPONIN Q3H Lab 09/02/21 16:00 Completed TROPONIN Q3H Lab 09/02/21 18:45 Ordered TROPONIN Q3H Lab 09/02/21 21:45 Ordered TROPONIN Q3H Lab 09/03/21 00:45 Ordered TROPONIN Q3H Lab 09/03/21 03:45 Ordered UA W/RFX UR CULTURE Stat Lab 09/02/21 15:44 Ordered Medication Summary Generic Name Dose Route Start Last Admin Trade Name Freq PRN Reason Stop Dose Admin Sodium Chloride 1,000 mls @ 100 mls/hr 09/02/21 15:45 09/02/21 15:51 Sodium Chloride 0.9% 1000 Ml IV 10/02/21 15:44 100 mls/hr .Q10H RICARDO Administration Lab/Rad Data: Laboratory Result Diagrams 09/02/21 16:00 09/02/21 16:00 Laboratory Results 09/02/21 09/02/21 09/02/21 Range/Units 16:00 16:00 16:00 WBC (4.0-10.5) K/mm3 RBC (4.1-5.6) M/mm3 Hgb (12.5-18.0) gm/dl Hct (42-50) % MCV (78-100) fl MCH (26-32) pg MCHC (32-36) g/dl RDW (11.5-14.0) % Plt Count (150-450) K/mm3 MPV (7.5-11.0) fl Gran % (36.0-66.0) % Eos # (Auto) (0-0.5) Absolute Lymphs (auto) (1.0-4.6) Absolute Monos (auto) (0.0-1.3) Lymphocytes % (24.0-44.0) % Monocytes % (0.0-12.0) % Eosinophils % (0.00-5.0) % Basophils % (0.0-0.4) % Absolute Granulocytes (1.4-6.9) Basophils # (0-0.4) PT 14.2 H (9.4-12.5) SECONDS INR 1.20 (0.8-3.0) APTT 26.7 (25.1-36.5) SECONDS D-Dimer 1070 H* (215-500) ng/mL Sodium 135 L (137-145) mmol/L Potassium 4.4 (3.5-5.1) mmol/L Chloride 101 (98-107) mmol/L Carbon Dioxide 22 (22-30) mmol/L Anion Gap 16.7 H (5-15) MEQ/L BUN 10 (9-20) mg/dL Creatinine 1.47 H (0.66-1.25) mg/dL Estimated GFR 52.7 ML/MIN Glucose 263 H (74-106) mg/dL Lactic Acid (0.4-2.0) Calcium 9.0 (8.4-10.2) mg/dL Magnesium 2.2 (1.6-2.3) mg/dL Total Bilirubin 0.90 (0.2-1.3) mg/dL AST 22 (17-59) U/L ALT 16 (0-50) U/L Alkaline Phosphatase 104 (38-126) U/L Troponin I 0.110 H* (0.000-0.034) ng/mL NT-Pro-B Natriuret Pep 22954 H (0-900) pg/mL Serum Total Protein 7.0 (6.3-8.2) g/dL Albumin 4.2 (3.5-5.0) g/dL Slides for Path Review 09/02/21 09/02/21 Range/Units 16:00 15:59 WBC 10.3 (4.0-10.5) K/mm3 RBC 4.31 (4.1-5.6) M/mm3 Hgb 10.1 L (12.5-18.0) gm/dl Hct 35.0 L (42-50) % MCV 81.2 (78-100) fl MCH 23.4 L (26-32) pg MCHC 28.9 L (32-36) g/dl RDW 19.6 H (11.5-14.0) % Plt Count 577 H (150-450) K/mm3 MPV 9.3 (7.5-11.0) fl Gran % 74.9 H (36.0-66.0) % Eos # (Auto) 0.08 (0-0.5) Absolute Lymphs (auto) 1.47 (1.0-4.6) Absolute Monos (auto) 0.88 (0.0-1.3) Lymphocytes % 14.3 L (24.0-44.0) % Monocytes % 8.6 (0.0-12.0) % Eosinophils % 0.8 (0.00-5.0) % Basophils % 1.4 (0.0-0.4) % Absolute Granulocytes 7.70 H (1.4-6.9) Basophils # 0.14 (0-0.4) PT (9.4-12.5) SECONDS INR (0.8-3.0) APTT (25.1-36.5) SECONDS D-Dimer (215-500) ng/mL Sodium (137-145) mmol/L Potassium (3.5-5.1) mmol/L Chloride (98-107) mmol/L Carbon Dioxide (22-30) mmol/L Anion Gap (5-15) MEQ/L BUN (9-20) mg/dL Creatinine (0.66-1.25) mg/dL Estimated GFR ML/MIN Glucose (74-106) mg/dL Lactic Acid 2.5 H (0.4-2.0) Calcium (8.4-10.2) mg/dL Magnesium (1.6-2.3) mg/dL Total Bilirubin (0.2-1.3) mg/dL AST (17-59) U/L ALT (0-50) U/L Alkaline Phosphatase (38-126) U/L Troponin I (0.000-0.034) ng/mL NT-Pro-B Natriuret Pep (0-900) pg/mL Serum Total Protein (6.3-8.2) g/dL Albumin (3.5-5.0) g/dL Slides for Path Review - Progress Progress: improved Air Movement: fair Progress Note: 09/02/21 17:55 Patient was found to have an elevated D-dimer and for that reason with adequate renal function we wanted to conduct a CTA of the chest patient refused. He also had an elevated troponin indicating perhaps a non-STEMI and was offered transfer to [facility] and refused patient wishes to leave the hospital. Antibiotics given: Yes - Departure Departure Disposition: AMA Clinical Impression: Pleural effusion on right, Elevated d-dimer, Congestive heart failure, Non- STEMI (non-ST elevated myocardial infarction) Condition: Fair Critical Care Time: Yes Critical Care Time(excluding separately billable procedures): Critical 30-74 mins (25 mion) Referrals: CAROLYN TAMEZ MD [Primary Care Provider] - Follow up/PCP as directed Instructions: Heart Failure, Shortness of Breath (Dyspnea) (DC) Prescriptions: Apixaban [Eliquis 2.5 mg Tablet] 2.5 mg PO BID 10 Days #20 tablet Azithromycin 250 mg [Zithromax 250 MG TABLET] 250 mg PO ZPACK #6 tablet
== END 2021-09-02 18:16 | disposition left against medical advice (07) ==
LOC: ED 15:25
DX: I21.4 Non-ST elevation (NSTEMI) myocardial infarction (principal); I50.9 Heart failure, unspecified; J90 Pleural effusion, not elsewhere classified; R79.1 Abnormal coagulation profile; E11.9 Type 2 diabetes mellitus without complications
CPT/HCPCS: 36000; 36415; 71045; 80053; 83605; 83735; 83880; 84484; 85025; 85379; 85610; 85730; 93005; 93041; 99284; 99291

== ENCOUNTER 2021-09-05 13:02 | Inpatient (IN) | payer MEDICARE ==
--- NOTE | 2021-09-05 13:49 | XRAY ---
Indication: Short of breath. Comparison: September 02, 2021. Portable chest again demonstrates cardiomegaly with mild/moderate bibasilar infiltrates/atelectasis/effusions worsened on the left again favoring cardiac decompensation/CHF. Superimposed pneumonia not completely excluded.
[2021-09-05 13:51] LABS: Hematocrit 36.8 % (42-50); Hemoglobin 10.5 gm/dl (12.5-18.0); Mean Cell Volume 81.1 fl (78-100); Mean Corpuscular Hemoglobin 23.1 pg (26-32); Mean Corpuscular Hgb Concent. 28.5 g/dl (32-36); Mean Platelet Volume 10.2 fl (7.5-11.0); Platelet Count 643 K/mm3 (150-450); Red Blood Count 4.54 M/mm3 (4.1-5.6); Red Cell Distribution Width 19.6 % (11.5-14.0); White Blood Count 10.2 K/mm3 (4.0-10.5)
--- NOTE | 2021-09-05 14:11 | ERPHSYRPT ---
- History of Present Illness Time Seen by Provider: 09/05/21 13:30 Source: patient Exam Limitations: no limitations Patient Subjective Stated Complaint: pt here for sob, he was here last week dx with non stemi mi,chf and refused treatment Triage Nursing Assessment: pt alert,poor historian, resp labored, skin w/d/p, face mask in place, chest diminished, no edema noted Physician History: Patient is a 55-year-old male presents to our ED with complaints of chest pain. Patient was here last week for the same. Patient was diagnosed with an NSTEMI and CHF. Patient refused transfer and left AMA. Patient states his symptoms have progressed. Patient states he is willing to stay for his treatments at this time. No chest pain at this time. Shortness of breath is worse with exertion. No associated nausea vomiting or diaphoresis. No diarrhea. No rash no fever. Symptoms are mild to moderate in intensity. Patient voices no other complaints or concerns at this time. Timing/Duration: day(s) (3 days.) Severity: moderate Modifying Factors: Improves With: movement Associated Symptoms: shortness of breath, No nausea, No vomiting, No diaphoresis, No cough, No chills, No chest pain, No fever, No loss of appetite, No weakness Allergies/Adverse Reactions: Penicillins Allergy (Verified 09/05/21 13:05) Hx Tetanus, Diphtheria Vaccination/Date Given: No () Hx Influenza Vaccination/Date Given: No Hx Pneumococcal Vaccination/Date Given: No Immunizations Up to Date: Yes Travel Risk - International Travel Have you traveled outside of the country in past 3 weeks: No - Coronavirus Screening Are you exhibiting any of the following symptoms?: Yes Symptoms: Shortness of Breath Close contact with a COVID-19 positive Pt in past 14-21 Days: No - Vaccine Status Have you recieved a Covid-19 vaccination: (Unknown.) - Review of Systems Constitutional: No Symptoms, No Fever, No Chills Eyes: No Symptoms Ears, Nose, & Throat: No Symptoms Respiratory: No Symptoms, No Cough, No Dyspnea Cardiac: No Symptoms, No Chest Pain, No Edema, No Syncope Abdominal/Gastrointestinal: No Symptoms, No Abdominal Pain, No Nausea, No Vomiting, No Diarrhea Genitourinary Symptoms: No Symptoms, No Dysuria Musculoskeletal: No Symptoms, No Back Pain, No Neck Pain Skin: No Symptoms, No Rash Neurological: No Symptoms, No Dizziness, No Focal Weakness, No Sensory Changes Psychological: No Symptoms Endocrine: No Symptoms Hematologic/Lymphatic: No Symptoms Immunological/Allergic: No Symptoms All Other Systems: Reviewed and Negative - Past Medical History Pertinent Past Medical History: Yes Neurological History: Other ENT History: No Pertinent History Cardiac History: No Pertinent History Respiratory History: No Pertinent History Endocrine Medical History: Diabetes Type II Musculoskeletal History: Arthritis GI Medical History: No Pertinent History History: No Pertinent History Psycho-Social History: No Pertinent History Male Reproductive Disorders: No Pertinent History Other Medical History: hx of head injury 8 yrs ago. congenital neck deformity. - Past Surgical History Past Surgical History: Yes Neuro Surgical History: Other Cardiac: No Pertinent History Respiratory: No Pertinent History Gastrointestinal: No Pertinent History Genitourinary: Kidney Surgery Musculoskeletal: Joint Replacement Male Surgical History: No Pertinent History Other Surgical History: unknown - Social History Smoking Status: Never smoker Exposure to second hand smoke: No Drug Use: none Patient Lives Alone: Yes - Nursing Vital Signs Nursing Vital Signs: Initial Vital Signs Respiratory Rate 24 09/05/21 13:15 O2 Sat by Pulse Oximetry 98 09/05/21 13:15 Pain Scale Pain Intensity 0 - Physical Exam General Appearance: no apparent distress, alert Eye Exam: PERRL/EOMI, eyes nml inspection Ears, Nose, Throat Exam: normal ENT inspection, TMs normal, pharynx normal, moist mucous membranes Neck Exam: normal inspection, non-tender, supple, full range of motion Respiratory Exam: normal breath sounds, lungs clear, airway intact, other (Mildly tachypneic.), No respiratory distress Cardiovascular Exam: regular rate/rhythm, normal heart sounds, normal peripheral pulses Gastrointestinal/Abdomen Exam: soft, normal bowel sounds, No tenderness, No mass Back Exam: normal inspection, normal range of motion, No CVA tenderness, No vertebral tenderness Extremity Exam: normal inspection, normal range of motion, pelvis stable Neurologic Exam: alert, oriented x 3, cooperative, normal mood/affect, nml cerebellar function, nml station & gait, sensation nml, No motor deficits Skin Exam: normal color, warm, dry, No rash Lymphatic Exam: No adenopathy SpO2 Interpretation: normal SpO2: 99 O2 Delivery: Room Air - Course Nursing assessment & vital signs reviewed: Yes EKG Interpreted by Me: RATE ([id number]), Sinus Tach, NORMAL AXIS, NORMAL INTERVALS - Radiology Exams Chest X-ray Interpretation: Teleradiologist Report (Portable chest again demonstrates cardiomegaly with mild to moderate bibasilar infiltrates/atelectasis/effusions worsened on the left again favoring cardiac decompensation CHF. 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 STAT Care 09/05/21 13:23 Completed EKG-ER Only STAT Care 09/05/21 13:22 Completed IV Insertion STAT Care 09/05/21 13:22 Completed Pulse Oximetry (ED) STAT Care 09/05/21 13:22 Completed Consistent Carbohydrate Diet 1800 Calorie Diet 09/05/21 Dinner Active CHEST 1 VIEW (PORTABLE) Stat Exams 09/05/21 13:39 Completed BMP AM.LAB Lab 09/06/21 04:00 Ordered CBC W DIFF Stat Lab 09/05/21 13:48 Completed CMP Stat Lab 09/05/21 13:48 Completed D-DIMER QUANTITATIVE Stat Lab 09/05/21 13:48 Completed Manual Differential NC Stat Lab 09/05/21 13:48 Completed NT PRO BNP AM.LAB Lab 09/06/21 04:00 Ordered NT PRO BNP Stat Lab 09/05/21 13:48 Completed Transfer Order Routine Transfer 09/05/21 Completed Medication Summary Generic Name Dose Route Start Last Admin Trade Name Freq PRN Reason Stop Dose Admin Insulin Human Regular 0 unit 09/05/21 19:04 Insulin Regular, Human 1 Unit SQ 10/05/21 19:03 UD PRN HYPERGLYCEMIA Discontinued Medications Generic Name Dose Route Start Last Admin Trade Name Freq PRN Reason Stop Dose Admin Furosemide 40 mg 09/05/21 14:34 09/05/21 14:39 Furosemide 40 Mg/4 Ml Vial IV 09/05/21 14:35 40 mg STAT ONE Administration Furosemide Confirm 09/05/21 14:37 Furosemide 40 Mg/4 Ml Vial Administered 09/05/21 14:38 Dose 40 mg .ROUTE .STK-MED ONE Lab/Rad Data: Laboratory Result Diagrams 09/05/21 13:48 09/05/21 13:48 Laboratory Results 09/05/21 09/05/21 09/05/21 Range/Units 16:04 13:48 13:48 WBC (4.0-10.5) K/mm3 RBC (4.1-5.6) M/mm3 Hgb (12.5-18.0) gm/dl Hct (42-50) % MCV (78-100) fl MCH (26-32) pg MCHC (32-36) g/dl RDW (11.5-14.0) % Plt Count (150-450) K/mm3 MPV (7.5-11.0) fl Segmented Neutrophils (36.-66.) % Lymphocytes (Manual) (24-44) % Monocytes (Manual) (0.0-12.0) % Toxic Granulation Platelet Estimate (NORMAL) RBC Morphology Anisocytosis D-Dimer 986 H* (215-500) ng/mL Sodium 132 L (137-145) mmol/L Potassium 4.3 (3.5-5.1) mmol/L Chloride 99 (98-107) mmol/L Carbon Dioxide 22 (22-30) mmol/L Anion Gap 16.0 H (5-15) MEQ/L BUN 11 (9-20) mg/dL Creatinine 1.50 H (0.66-1.25) mg/dL Estimated GFR 51.5 ML/MIN Glucose 385 H (74-106) mg/dL Calcium 8.6 (8.4-10.2) mg/dL Total Bilirubin 1.20 (0.2-1.3) mg/dL AST 21 (17-59) U/L ALT 16 (0-50) U/L Alkaline Phosphatase 129 H (38-126) U/L NT-Pro-B Natriuret Pep 11859 H (0-900) pg/mL Serum Total Protein 7.0 (6.3-8.2) g/dL Albumin 4.1 (3.5-5.0) g/dL Influenza Type A Ag NEGATIVE (NEGATIVE) Influenza Type B Ag NEGATIVE (NEGATIVE) RSV (PCR) NEGATIVE (Negative) SARS-CoV-2 (PCR) NEGATIVE (NEGATIVE) 09/05/21 Range/Units 13:48 WBC 10.2 (4.0-10.5) K/mm3 RBC 4.54 (4.1-5.6) M/mm3 Hgb 10.5 L (12.5-18.0) gm/dl Hct 36.8 L (42-50) % MCV 81.1 (78-100) fl MCH 23.1 L (26-32) pg MCHC 28.5 L (32-36) g/dl RDW 19.6 H (11.5-14.0) % Plt Count 643 H (150-450) K/mm3 MPV 10.2 (7.5-11.0) fl Segmented Neutrophils 84 H (36.-66.) % Lymphocytes (Manual) 12 L (24-44) % Monocytes (Manual) 4 (0.0-12.0) % Toxic Granulation 1+ Platelet Estimate INCREASED (NORMAL) RBC Morphology ABNORMAL Anisocytosis 1+ D-Dimer (215-500) ng/mL Sodium (137-145) mmol/L Potassium (3.5-5.1) mmol/L Chloride (98-107) mmol/L Carbon Dioxide (22-30) mmol/L Anion Gap (5-15) MEQ/L BUN (9-20) mg/dL Creatinine (0.66-1.25) mg/dL Estimated GFR ML/MIN Glucose (74-106) mg/dL Calcium (8.4-10.2) mg/dL Total Bilirubin (0.2-1.3) mg/dL AST (17-59) U/L ALT (0-50) U/L Alkaline Phosphatase (38-126) U/L NT-Pro-B Natriuret Pep (0-900) pg/mL Serum Total Protein (6.3-8.2) g/dL Albumin (3.5-5.0) g/dL Influenza Type A Ag (NEGATIVE) Influenza Type B Ag (NEGATIVE) RSV (PCR) (Negative) SARS-CoV-2 (PCR) (NEGATIVE) - Progress Progress: improved Progress Note: Covid test negative. D-dimer positive. BNP was 11,900. Patient received a dose of Lasix in our ED. We intended to do a CTA chest however patient was unable to lie flat. Patient received a dose of Lovenox instead. Chest x-ray reveals findings consistent with pulmonary congestion. Vital stable. Case discussed with Dr. Torres who accepts admission to observation. Plan of care discussed with patient. He agrees to admission [facility] for further evaluation and treatment. Patient voices no other complaints concerns at this time. Portions of this note were created with voice recognition technology. There may be grammatical, spelling, punctuation or sound alike errors 09/05/21 17:32 Discussed with DrNarayan: Waqar Will see patient in: hospital (observation) Counseled pt/family regarding: lab results, diagnosis, rad results - Departure Departure Disposition: Observation Clinical Impression: CHF (congestive heart failure), SOB (shortness of breath) on exertion, Elevated d-dimer, Elevated brain natriuretic peptide (BNP) level, Hyperglycemia, Hyponatremia, Thrombocytosis Condition: Stable Critical Care Time: No
[2021-09-05 14:25] LABS: ALBUMIN 4.1 g/dL (3.5-5.0); BILIRUBIN,TOTAL 1.2 mg/dL (0.2-1.3); Calcium 8.6 mg/dL (8.4-10.2); Creatinine 1 1.5 mg/dL (0.66-1.25); EST GLOMERULAR FILTRATION RATE 51.5 ML/MIN; Potassium 4.3 mmol/L (3.5-5.1)
[2021-09-05] MEDS ORDERED: Lasix 40 MG/4 ML IV ONE (14:34)
[2021-09-05] MEDS ORDERED: Lasix 40 MG/4 ML ONE (14:37)
[2021-09-05 15:50] LABS: ANISOCYTOSIS 1+; Lymphocytes 12 % (24-44); Monocyte 4 % (0.0-12.0); Neutrophils 84 % (36.-66.); Platelet Estimate INCREASED (NORMAL); Total Cells Counted 100; Toxic Granulation 1+
[2021-09-05 16:46] LABS: INFLUENZA A NEGATIVE (NEGATIVE); INFLUENZA B NEGATIVE (NEGATIVE); RESPIRATORY SYNCTIAL VIRUS NEGATIVE (Negative); SARS-CoV-2 Xpert Express NEGATIVE (NEGATIVE)
[2021-09-05] MEDS ORDERED: ROCEPHIN 1 Gm-D5w 50 ml Bag** 1 G/50 ML IVPB IV SCH (22:00)
[2021-09-05] MEDS: ELIQUIS 2.5 MG TABLET PO SCH (22:52)
[2021-09-05] MEDS: HUMULIN R SQ PRN (22:53)
[2021-09-06] MEDS ORDERED: Lasix 40 MG/4 ML IV SCH (02:00)
[2021-09-06 05:32] LABS: Hematocrit 36.9 % (42-50); Hemoglobin 10.5 gm/dl (12.5-18.0); Mean Corpuscular Hemoglobin 22.8 pg (26-32); Mean Corpuscular Hgb Concent. 28.5 g/dl (32-36); Mean Platelet Volume 10.1 fl (7.5-11.0); Platelet Count 701 K/mm3 (150-450); Red Blood Count 4.61 M/mm3 (4.1-5.6); Red Cell Distribution Width 19.8 % (11.5-14.0); White Blood Count 13.2 K/mm3 (4.0-10.5)
[2021-09-06 06:15] LABS: ALBUMIN 4.1 g/dL (3.5-5.0); ANION GAP 18.7 MEQ/L (5-15); Calcium 8.9 mg/dL (8.4-10.2); Creatinine 1 1.55 mg/dL (0.66-1.25); EST GLOMERULAR FILTRATION RATE 49.5 ML/MIN; MAGNESIUM 1.8 mg/dL (1.6-2.3); Potassium 4.7 mmol/L (3.5-5.1); Total Protein 6.7 g/dL (6.3-8.2)
[2021-09-06 06:18] LABS: ANION GAP 18.8 MEQ/L (5-15); Creatinine 1 1.55 mg/dL (0.66-1.25); EST GLOMERULAR FILTRATION RATE 49.5 ML/MIN; Potassium 4.9 mmol/L (3.5-5.1)
[2021-09-06] MEDS: HUMULIN R SQ PRN ×2 (08:35→22:31)
[2021-09-06] MEDS: ELIQUIS 2.5 MG TABLET PO SCH ×2 (09:16→22:30)
[2021-09-06] MEDS: Lasix 40 MG/4 ML IV SCH ×2 (09:17→22:30)
--- NOTE | 2021-09-06 17:18 | PCM.HP ---
History of Present Illness - Chief Complaint Chief Complaint: c/o chest pain and shortness of breath for 2 days History of Present Illness: is a 55 year old male.with complaints of chest pain. Patient was here last week for the same. Patient was diagnosed with an NSTEMI and CHF. Patient refused transfer and left AMA. Patient states his symptoms have progressed. Patient states he is willing to stay for his treatments at this time. No chest pain at this time. Shortness of breath is worse with exertion. No associated nausea vomiting or diaphoresis. No diarrhea. No rash no fever. Symptoms are mild to moderate in intensity. Patient voices no other complaints or concerns at this time. Timing/Duration: day(s) (3 days.) Severity: moderate Modifying Factors: Improves With: movement Associated Symptoms: shortness of breath, No nausea, No vomiting, No diaphoresis, No cough, No chills, No chest pain, No fever, No loss of appetite, No weakness - Review of Systems Constitutional: Weakness, No Fever, No Chills Eyes: No Symptoms Ears, Nose, & Throat: No Symptoms Respiratory: Orthopnea, Short Of Breath, No Cough Cardiac: Chest Pain, Orthopnea, PND, No Edema, No Syncope Abdominal/Gastrointestinal: No Abdominal Pain, No Nausea, No Vomiting, No Diarrhea Genitourinary Symptoms: No Dysuria Musculoskeletal: No Back Pain, No Neck Pain Skin: No Rash Neurological: No Dizziness, No Focal Weakness, No Sensory Changes Psychological: No Symptoms Endocrine: No Symptoms Hematologic/Lymphatic: No Symptoms Immunological/Allergic: No Symptoms Medications & Allergies Home Medications: Home Medication List Apixaban [Eliquis 2.5 mg Tablet] 2.5 mg PO BID 10 Days #20 tablet 09/02/21 [Rx Confirmed 09/05/21] Azithromycin 250 mg [Zithromax 250 MG TABLET] 250 mg PO ZPACK #6 tablet 09/02/21 [Rx Confirmed 09/05/21] Allergies/Adverse Reactions: Allergies Allergy/AdvReac Type Severity Reaction Status Date / Time Penicillins Allergy Verified 09/05/21 13:05 - Past Medical History Past Medical History: Yes Neurological History: Other ENT History: No Pertinent History Cardiac History: No Pertinent History Respiratory History: No Pertinent History Endocrine Medical History: Diabetes Type II Musculoskelatal History: Arthritis GI Medical History: No Pertinent History History: No Pertinent History Pyscho-Social History: No Pertinent History Male Reproductive Disorders: No Pertinent History Comment: hx of head injury 8 yrs ago. congenital neck deformity. - Past Surgical History Past Surgical History: Yes Neuro Surgical History: Other Cardiac History: No Pertinent History Respiratory Surgery: No Pertinent History GI Surgical History: No Pertinent History Genitourinary Surgical Hx: Kidney Surgery Musculskeletal Surgical Hx: Joint Replacement Male Surgical History: No Pertinent History Other Surgical History: unknown - Social History Smoking Status: Never smoker Exposure to second hand smoke: No Alcohol: Occasionally Drug Use: none - Physical Exam Vital Signs: Vital Signs - 24 hr Temp Pulse Resp BP Pulse Ox 09/06/21 16:00 98.7 F 93 H 19 104/58 97 09/06/21 12:00 97.8 F 97 H 19 102/64 94 L 09/06/21 07:20 97.8 F 88 21 114/69 100 09/06/21 03:47 97.7 F 105 H 16 117/80 97 09/05/21 23:44 97.7 F 103 H 16 109/65 98 09/05/21 23:39 98 09/05/21 19:27 97.3 F 100 H 131/82 99 09/05/21 19:20 99 09/05/21 18:03 97.3 F 100 H 20 131/82 99 09/05/21 17:55 99 General Appearance: no apparent distress, alert Neurologic Exam: alert, oriented x 3, cooperative, tester printed circuit boards II-XII nml as tested, n ormal mood/affect, nml cerebellar function, nml station & gait, sensation nml, No motor deficits Eye Exam: PERRL/EOMI, eyes nml inspection Ears, Nose, Throat Exam: normal ENT inspection, TMs normal, pharynx normal, moist mucous membranes Neck Exam: normal inspection, non-tender, supple, full range of motion Respiratory Exam: diminished breath sounds, crackles/rales, rhonchi, wheezing, No respiratory distress Cardiovascular Exam: gallop, tachycardia, irregular Gastrointestinal/Abdomen Exam: soft, normal bowel sounds, No tenderness, No mass Back Exam: normal inspection, normal range of motion, No CVA tenderness, No vert ebral tenderness Extremity Exam: normal inspection, normal range of motion, pelvis stable Skin Exam: normal color, warm, dry, No rash Lymphatic Exam: No adenopathy Results - Labs Lab/Micro Results: Lab Results-Last 24 Hours 09/05/21 09/05/21 09/06/21 Range/Units 17:38 21:05 05:05 WBC (4.0-10.5) K/mm3 RBC (4.1-5.6) M/mm3 Hgb (12.5-18.0) gm/dl Hct (42-50) % MCV (78-100) fl MCH (26-32) pg MCHC (32-36) g/dl RDW (11.5-14.0) % Plt Count (150-450) K/mm3 MPV (7.5-11.0) fl Sodium 136 L (137-145) mmol/L Potassium 4.9 (3.5-5.1) mmol/L Chloride 98 (98-107) mmol/L Carbon Dioxide 24 (22-30) mmol/L Anion Gap 18.8 H (5-15) MEQ/L BUN 16 (9-20) mg/dL Creatinine 1.55 H (0.66-1.25) mg/dL Estimated GFR 49.5 ML/MIN Glucose 173 H (74-106) mg/dL POC Glucometer 262 H 234 H (74 to 106) mg/dL Hemoglobin A1c (4.5-6.0) % Calcium 9.0 (8.4-10.2) mg/dL Magnesium (1.6-2.3) mg/dL Total Bilirubin (0.2-1.3) mg/dL AST (17-59) U/L ALT (0-50) U/L Alkaline Phosphatase (38-126) U/L NT-Pro-B Natriuret Pep 94030 H (0-900) pg/mL Serum Total Protein (6.3-8.2) g/dL Albumin (3.5-5.0) g/dL 09/06/21 09/06/21 09/06/21 Range/Units 05:05 05:05 05:05 WBC 13.2 H (4.0-10.5) K/mm3 RBC 4.61 (4.1-5.6) M/mm3 Hgb 10.5 L (12.5-18.0) gm/dl Hct 36.9 L (42-50) % MCV 80.0 (78-100) fl MCH 22.8 L (26-32) pg MCHC 28.5 L (32-36) g/dl RDW 19.8 H (11.5-14.0) % Plt Count 701 H (150-450) K/mm3 MPV 10.1 (7.5-11.0) fl Sodium 137 (137-145) mmol/L Potassium 4.7 (3.5-5.1) mmol/L Chloride 98 (98-107) mmol/L Carbon Dioxide 24 (22-30) mmol/L Anion Gap 18.7 H (5-15) MEQ/L BUN 15 (9-20) mg/dL Creatinine 1.55 H (0.66-1.25) mg/dL Estimated GFR 49.5 ML/MIN Glucose 174 H (74-106) mg/dL POC Glucometer (74 to 106) mg/dL Hemoglobin A1c 8.10 H (4.5-6.0) % Calcium 8.9 (8.4-10.2) mg/dL Magnesium 1.8 (1.6-2.3) mg/dL Total Bilirubin 1.00 (0.2-1.3) mg/dL AST 22 (17-59) U/L ALT 14 (0-50) U/L Alkaline Phosphatase 139 H (38-126) U/L NT-Pro-B Natriuret Pep (0-900) pg/mL Serum Total Protein 6.7 (6.3-8.2) g/dL Albumin 4.1 (3.5-5.0) g/dL 09/06/21 09/06/21 09/06/21 Range/Units 06:51 11:37 16:02 WBC (4.0-10.5) K/mm3 RBC (4.1-5.6) M/mm3 Hgb (12.5-18.0) gm/dl Hct (42-50) % MCV (78-100) fl MCH (26-32) pg MCHC (32-36) g/dl RDW (11.5-14.0) % Plt Count (150-450) K/mm3 MPV (7.5-11.0) fl Sodium (137-145) mmol/L Potassium (3.5-5.1) mmol/L Chloride (98-107) mmol/L Carbon Dioxide (22-30) mmol/L Anion Gap (5-15) MEQ/L BUN (9-20) mg/dL Creatinine (0.66-1.25) mg/dL Estimated GFR ML/MIN Glucose (74-106) mg/dL POC Glucometer 201 H 114 H 188 H (74 to 106) mg/dL Hemoglobin A1c (4.5-6.0) % Calcium (8.4-10.2) mg/dL Magnesium (1.6-2.3) mg/dL Total Bilirubin (0.2-1.3) mg/dL AST (17-59) U/L ALT (0-50) U/L Alkaline Phosphatase (38-126) U/L NT-Pro-B Natriuret Pep (0-900) pg/mL Serum Total Protein (6.3-8.2) g/dL Albumin (3.5-5.0) g/dL Accuchecks Date 09/06/21 Date 09/06/21 Date 09/06/21 Date 09/05/21 Date 09/05/21 Time 16:05 Time 11:40 Time 07:10 Time 21:00 Time 17:39 - Radiology Impressions Radiology Exams & Impressions: Radiology Procedures Category Date Time Status CHEST 1 VIEW (PORTABLE) Stat Exams 09/05/21 13:39 Completed ECHO W/2D AND DOPPLER [US] Routine Exams 09/06/21 Taken - Other Procedures and Tests Respiratory Therapy 09/05/21 17:55 Oxygen NASAL CANNULA 2 lpm Assessment/Plan (1) Congestive heart failure Current Visit: Yes Status: Acute Qualifiers: Heart failure type: diastolic Heart failure chronicity: acute Qualified Code(s): I50.31 - Acute diastolic (congestive) heart failure Assessment & Plan: Chief Complaint Diagnosis CHF, ELEVATED DDIMER, SOB Allergies Allergy/AdvReac Type Severity Reaction Status Date / Time Penicillins Allergy Verified 09/05/21 13:05 Vital Signs (Last 24 hours) Temp Pulse Resp BP Pulse Ox 09/06/21 16:00 98.7 F 93 H 19 104/58 97 09/06/21 12:00 97.8 F 97 H 19 102/64 94 L 09/06/21 07:20 97.8 F 88 21 114/69 100 09/06/21 03:47 97.7 F 105 H 16 117/80 97 09/05/21 23:44 97.7 F 103 H 16 109/65 98 09/05/21 23:39 98 09/05/21 19:27 97.3 F 100 H 131/82 99 09/05/21 19:20 99 09/05/21 18:03 97.3 F 100 H 20 131/82 99 09/05/21 17:55 99 Current Medications Generic Name Dose Route Start Last Admin Trade Name Albaro PRN Reason Stop Dose Admin Apixaban 2.5 mg 09/05/21 22:00 09/06/21 09:16 Apixaban 2.5 Mg Tablet PO 10/05/21 21:59 2.5 mg BID RICARDO Administration Furosemide 40 mg 09/06/21 10:00 09/06/21 09:17 Furosemide 40 Mg/4 Ml Vial IV 10/06/21 09:59 40 mg Q12HT RICARDO Administration Ceftriaxone Sodium/Dextrose 1 g in 50 mls @ 100 mls/hr 09/06/21 22:00 Rocephin 1 Gm-D5w 50 Ml Bag IV 09/09/21 21:59 Q24H22 RICARDO Insulin Human Regular 0 unit 09/05/21 19:04 09/06/21 08:35 Insulin Regular, Human 1 Unit SQ 10/05/21 19:03 2 unit UD PRN Administration HYPERGLYCEMIA Discontinued Medications Generic Name Dose Route Start Last Admin Trade Name Albaro PRN Reason Stop Dose Admin Furosemide 40 mg 09/05/21 14:34 09/05/21 14:39 Furosemide 40 Mg/4 Ml Vial IV 09/05/21 14:35 40 mg STAT ONE Administration Furosemide Confirm 09/05/21 14:37 Furosemide 40 Mg/4 Ml Vial Administered 09/05/21 14:38 Dose 40 mg .ROUTE .STK-MED ONE Furosemide 40 mg 09/06/21 02:00 09/06/21 01:36 Furosemide 40 Mg/4 Ml Vial IV 10/06/21 01:59 40 mg Q12H RICARDO Administration Ceftriaxone Sodium/Dextrose 1 g in 50 mls @ 100 mls/hr 09/05/21 22:00 09/05/21 22:55 Rocephin 1 Gm-D5w 50 Ml Bag IV 09/08/21 21:59 100 mls/hr Q24H10 RICARDO Administration Intake & Output (Last 24 hours) 09/04/21 09/05/21 09/06/21 09/07/21 11:59 11:59 11:59 11:59 Intake Total 480 420 Output Total 1775 200 Balance -1295 220 Weight 56.6 kg Laboratory Results (Last 24 hours) 09/06/21 09/06/21 09/06/21 16:02 11:37 06:51 WBC RBC Hgb Hct MCV MCH MCHC RDW Plt Count MPV Sodium Potassium Chloride Carbon Dioxide Anion Gap BUN Creatinine Estimated GFR Glucose POC Glucometer 188 H 114 H 201 H Hemoglobin A1c Calcium Magnesium Total Bilirubin AST ALT Alkaline Phosphatase NT-Pro-B Natriuret Pep Serum Total Protein Albumin 09/06/21 09/06/21 09/06/21 05:05 05:05 05:05 WBC 13.2 H RBC 4.61 Hgb 10.5 L Hct 36.9 L MCV 80.0 MCH 22.8 L MCHC 28.5 L RDW 19.8 H Plt Count 701 H MPV 10.1 Sodium 137 Potassium 4.7 Chloride 98 Carbon Dioxide 24 Anion Gap 18.7 H BUN 15 Creatinine 1.55 H Estimated GFR 49.5 Glucose 174 H POC Glucometer Hemoglobin A1c 8.10 H Calcium 8.9 Magnesium 1.8 Total Bilirubin 1.00 AST 22 ALT 14 Alkaline Phosphatase 139 H NT-Pro-B Natriuret Pep Serum Total Protein 6.7 Albumin 4.1 09/06/21 09/05/21 09/05/21 05:05 21:05 17:38 WBC RBC Hgb Hct MCV MCH MCHC RDW Plt Count MPV Sodium 136 L Potassium 4.9 Chloride 98 Carbon Dioxide 24 Anion Gap 18.8 H BUN 16 Creatinine 1.55 H Estimated GFR 49.5 Glucose 173 H POC Glucometer 234 H 262 H Hemoglobin A1c Calcium 9.0 Magnesium Total Bilirubin AST ALT Alkaline Phosphatase NT-Pro-B Natriuret Pep 74439 H Serum Total Protein Albumin Orders (Last 24 hours) Category Date Time Status Admission Status Change [Change to Full Admit] ROUTINE Care 09/06/21 12:00 Active Code Status Order ROUTINE Care 09/05/21 17:55 Active IV Care Q6H Care 09/05/21 17:55 Active Implement CHF Pathway ROUTINE Care 09/05/21 17:55 Active Miscellaneous Nursing Order ROUTINE Care 09/06/21 12:[address] in Observation ROUTINE Care 09/05/21 17:55 Active Telemetry q6h Care 09/05/21 17:55 Active Weight,Daily 0600 Care 09/05/21 17:55 Active Visual Education Director/Discharge Plan ROUTINE Cons 09/05/21 18:15 Active Low Sodium (1.5-2gram Sodium) Diet 09/06/21 Breakfast Active Nutritional Admission Screen ONCE Diet 09/05/21 18:15 Active ECHO W/2D AND DOPPLER [US] Routine Exams 09/06/21 Taken BMP AM.LAB Lab 09/06/21 05:05 Completed BNP [NT PRO BNP] AM.LAB Lab 09/07/21 04:00 Ordered CBC AM.LAB Lab 09/06/21 05:05 Completed CBC AM.LAB Lab 09/07/21 04:00 Ordered CMP AM.LAB Lab 09/06/21 05:05 Completed CMP AM.LAB Lab 09/07/21 04:00 Ordered HEMOGLOBIN A1C Routine Lab 09/06/21 05:05 Completed MAGNESIUM AM.LAB Lab 09/06/21 05:05 Completed NT PRO BNP AM.LAB Lab 09/06/21 05:05 Completed POCT GLUCOSE Stat Lab 09/05/21 17:38 Completed POCT GLUCOSE Stat Lab 09/05/21 21:05 Completed POCT GLUCOSE Stat Lab 09/06/21 06:51 Completed POCT GLUCOSE Stat Lab 09/06/21 11:37 Completed POCT GLUCOSE Stat Lab 09/06/21 16:02 Completed Apixaban [Eliquis 2.5 mg Tablet] Med 09/05/21 22:00 Active 2.5 mg PO BID Ceftriaxone 1 GM/50 ML PREMIX* [ROCEPHIN 1 Gm-D5w 50 ml Med 09/05/21 22:00 Discontinued Bag] 1 g in 50 ml IV Q24H10 Ceftriaxone 1 GM/50 ML PREMIX* [ROCEPHIN 1 Gm-D5w 50 ml Med 09/06/21 22:00 Active Bag] 1 g in 50 ml IV Q24H22 Furosemide 40 mg/4 ml [Lasix 40 MG/4 ML] Med 09/06/21 02:00 Discontinued 40 mg IV Q12H Furosemide 40 mg/4 ml [Lasix 40 MG/4 ML] Med 09/06/21 10:00 Active 40 mg IV Q12HT Insulin Regular, Human [Humulin R] Med 09/05/21 19:04 Active See Dose Instructions SQ UD PRN Oxygen NASAL CANNULA 2 lpm RT 09/05/21 17:55 Active Pulse Oximetry .spot check RT 09/05/21 23:39 Active Pulse Oximetry OVERNIGHT RT 09/05/21 17:55 Completed Patient Care Notes (Last 24 hours) 09/06/21 14:10 Nursing Note by Rita Craig Patient ambulated with cane and standby from this nurse. Patient did not audibly become short of breath but patient reported feeling a bit more short of breath toward end of walk. Ambulated approximately 100 feet Initialized on 09/06/21 14:10 - END OF NOTE 09/06/21 14:04 Case Management Note by Tonia Ortez REFERRAL SENT TO ACO Initialized on 09/06/21 14:04 - END OF NOTE 09/06/21 12:00 (created 09/06/21 14:04) Case Management Note by Sara Esparza DR ROUNDED AND EVALUATED, DISCUSSED PLAN OF CARE WITH PT. WANTS TO MAKE INPATIENT FOR CHF. REPORTS THAT PT WILL BE HERE FOR ATLEAST 2 MORE DAYS OF TREATMENT. PT IS IN AGREEMENT TO PLAN OF CARE, AND ABLE TO REPEAT INFORMATION BACK. ALL QUESTIONS ANSWERED. WILL ORDER ECHO IF NOT DONE WITHIN THE LAST 6 MONTHS, AND GET CBC, CMP, AND pBNP IN AM. KEEP ACCURATE I/O, AND GET DAILY WEIGHTS. Initialized on 09/06/21 14:04 - END OF NOTE 09/06/21 11:30 Case Management Note by Tonia Ortez WHILE DOING CASE MANAGEMENT ASSESS PATIENT ALERT AND ORIENTED TO PERSON AND PLACE. HE HOWEVER STATED 2016 FOR YEAR BUT WAS ABLE TO PROPERLY STATE THE MONTH AND UPCOMING HOLIDAY. HE FOLLOWED ALL CONVERSATION WELL AND ANDSWERED QUESTIONS APPROPRIATELY. TRIED TO CALL BOTH CONTACTS ON FACESHEET TO DISCUSS ANY CONCERNS- NO ANSWER. PATIENT HAS HHC- WAS JUST SEEN 09/05/21. NOTE LEFT WITH [facility] TO HAVE NURSE CALL CASE MAMAGEMENT TO SEE IF THERE ARE ANY CONCERNS WITH PATIENT'S HOME SITUATION Initialized on 09/06/21 11:30 - END OF NOTE 09/06/21 11:29 Case Management Note by Tonia Ortez PATIENT HAS [facility]. THEY WERE NOTIFIED PATIENT IS HERE. THEY WILL NEED TO BE NOTIFIED AT TIME OF DC AT [phone]. THEY WILL NEED FAXED THE DC INSTRUCTIONS, DC MED LIST, DC SUMMARY (IF AVAILABLE) TO [phone] Initialized on 09/06/21 11:29 - END OF NOTE 09/05/21 21:09 Nursing Note by Nina Blair Dr called to clarify orders on pt- he orders to resume Eliquis 2.5 mg BID, Lasix 40 mg IV Q 12, CBC CMP PRO -BNP & MAG in the AM, regular diet with 2 gram sodium restriction, and Rocephin IV 1 gram daily Initialized on 09/05/21 21:09 - END OF NOTE 09/05/21 19:05 Nursing Note by Bernice Clifford Spoke with Dr. Orantes regarding new admission. Per Dr. taveras accu checks achs and low dose sliding scale humalin r. Dr. Orantes said he will have to call back with orders and meds because he needs to review his chart. Code(s): I50.9 - HEART FAILURE, UNSPECIFIED (2) Elevated brain natriuretic peptide (BNP) level Current Visit: Yes Status: Acute Code(s): R79.89 - OTHER SPECIFIED ABNORMAL FINDINGS OF BLOOD CHEMISTRY (3) Elevated d-dimer Current Visit: Yes Status: Acute Code(s): R79.89 - OTHER SPECIFIED ABNORMAL FINDINGS OF BLOOD CHEMISTRY (4) Hyperglycemia Current Visit: Yes Status: Acute Code(s): R73.9 - HYPERGLYCEMIA, UNSPECIFIED (5) SOB (shortness of breath) on exertion Current Visit: Yes Status: Acute Code(s): R06.02 - SHORTNESS OF BREATH
[2021-09-06] MEDS: ROCEPHIN 1 Gm-D5w 50 ml Bag** 1 G/50 ML IVPB IV SCH (22:30)
[2021-09-07 05:43] LABS: Hematocrit 36.2 % (42-50); Hemoglobin 10.6 gm/dl (12.5-18.0); Mean Cell Volume 78.2 fl (78-100); Mean Corpuscular Hemoglobin 22.9 pg (26-32); Mean Corpuscular Hgb Concent. 29.3 g/dl (32-36); Mean Platelet Volume 10.3 fl (7.5-11.0); Platelet Count 796 K/mm3 (150-450); Red Blood Count 4.63 M/mm3 (4.1-5.6); Red Cell Distribution Width 19.6 % (11.5-14.0); White Blood Count 12.3 K/mm3 (4.0-10.5)
[2021-09-07 06:23] LABS: ALBUMIN 3.7 g/dL (3.5-5.0); ANION GAP 17.3 MEQ/L (5-15); BILIRUBIN,TOTAL 0.7 mg/dL (0.2-1.3); Calcium 8.6 mg/dL (8.4-10.2); Creatinine 1 1.51 mg/dL (0.66-1.25); EST GLOMERULAR FILTRATION RATE 51.1 ML/MIN; Total Protein 6.2 g/dL (6.3-8.2)
--- NOTE | 2021-09-07 08:23 | PCM.NOTE ---
Date and Time: 09/07/21812 Subjective Assessment: doing better - Review of Systems Constitutional: No Fever, No Chills Eyes: No Symptoms Ears, Nose, & Throat: No Symptoms Respiratory: Orthopnea, Short Of Breath, No Cough Cardiac: No Chest Pain, No Edema, No Syncope Abdominal/Gastrointestinal: No Abdominal Pain, No Nausea, No Vomiting, No Diarrhea Genitourinary Symptoms: No Dysuria Musculoskeletal: No Back Pain, No Neck Pain Skin: No Rash Neurological: No Dizziness, No Focal Weakness, No Sensory Changes Psychological: No Symptoms Endocrine: No Symptoms Hematologic/Lymphatic: No Symptoms Immunological/Allergic: No Symptoms Objective Exam General Appearance: no apparent distress, alert Neurologic Exam: alert, oriented x 3, cooperative, normal mood/affect, nml cerebellar function, sensation nml, No motor deficits Skin Exam: normal color, warm, dry Eye Exam: PERRL, EOMI, eyes nml inspection Ears, Nose, Throat Exam: normal ENT inspection, pharynx normal, moist mucous membranes Neck Exam: normal inspection, non-tender, supple, full range of motion Respiratory Exam: normal breath sounds, lungs clear, No respiratory distress Cardiovascular Exam: regular rate/rhythm, normal heart sounds Gastrointestinal/Abdomen Exam: soft, No tenderness, No mass Extremity Exam: normal inspection, normal range of motion Back Exam: normal inspection, normal range of motion, No CVA tenderness, No vertebral tenderness Male Genitalia Exam: deferred Rectal Exam: deferred OBJECTIVE DATA Vital Signs: Vital Signs - 24 hr Temp Pulse Resp BP Pulse Ox 09/07/21 07:34 97.1 F 93 H 24 111/58 100 09/07/21 03:53 97.5 F 94 H 16 99/63 97 09/07/21 00:06 97.3 F 95 H 18 106/65 97 09/06/21 19:48 97.3 F 89 18 99/58 98 09/06/21 19:26 96 09/06/21 16:00 98.7 F 93 H 19 104/58 97 09/06/21 12:00 97.8 F 97 H 19 102/64 94 L Pain Assessment - Last Documented Pain Intensity 0 Intake and Output: Intake & Output 09/04/21 09/05/21 09/06/21 09/07/21 11:59 11:59 11:59 11:59 Intake Total 480 1340 Output Total 1775 1825 Balance -1295 -863 Weight 56.6 kg Lab Results: Lab Results-Last 24 Hours 09/06/21 09/06/21 09/06/21 Range/Units 11:37 16:02 20:25 WBC (4.0-10.5) K/mm3 RBC (4.1-5.6) M/mm3 Hgb (12.5-18.0) gm/dl Hct (42-50) % MCV (78-100) fl MCH (26-32) pg MCHC (32-36) g/dl RDW (11.5-14.0) % Plt Count (150-450) K/mm3 MPV (7.5-11.0) fl Sodium (137-145) mmol/L Potassium (3.5-5.1) mmol/L Chloride (98-107) mmol/L Carbon Dioxide (22-30) mmol/L Anion Gap (5-15) MEQ/L BUN (9-20) mg/dL Creatinine (0.66-1.25) mg/dL Estimated GFR ML/MIN Glucose (74-106) mg/dL POC Glucometer 114 H 188 H 275 H (74 to 106) mg/dL Calcium (8.4-10.2) mg/dL Total Bilirubin (0.2-1.3) mg/dL AST (17-59) U/L ALT (0-50) U/L Alkaline Phosphatase (38-126) U/L NT-Pro-B Natriuret Pep (0-900) pg/mL Serum Total Protein (6.3-8.2) g/dL Albumin (3.5-5.0) g/dL 09/07/21 09/07/21 09/07/21 Range/Units 04:43 05:30 06:45 WBC 12.3 H (4.0-10.5) K/mm3 RBC 4.63 (4.1-5.6) M/mm3 Hgb 10.6 L (12.5-18.0) gm/dl Hct 36.2 L (42-50) % MCV 78.2 (78-100) fl MCH 22.9 L (26-32) pg MCHC 29.3 L (32-36) g/dl RDW 19.6 H (11.5-14.0) % Plt Count 796 H (150-450) K/mm3 MPV 10.3 (7.5-11.0) fl Sodium 136 L (137-145) mmol/L Potassium 4.0 (3.5-5.1) mmol/L Chloride 96 L (98-107) mmol/L Carbon Dioxide 27 (22-30) mmol/L Anion Gap 17.3 H (5-15) MEQ/L BUN 14 (9-20) mg/dL Creatinine 1.51 H (0.66-1.25) mg/dL Estimated GFR 51.1 ML/MIN Glucose 98 (74-106) mg/dL POC Glucometer 272 H (74 to 106) mg/dL Calcium 8.6 (8.4-10.2) mg/dL Total Bilirubin 0.70 (0.2-1.3) mg/dL AST 19 (17-59) U/L ALT 12 (0-50) U/L Alkaline Phosphatase 123 (38-126) U/L NT-Pro-B Natriuret Pep 5980 H (0-900) pg/mL Serum Total Protein 6.2 L (6.3-8.2) g/dL Albumin 3.7 (3.5-5.0) g/dL Radiology Exams: Radiology Procedures Category Date Time Status CHEST 1 VIEW (PORTABLE) Stat Exams 09/05/21 13:39 Completed ECHO W/2D AND DOPPLER [US] Routine Exams 09/06/21 Taken Multi-Disciplinary Progress Notes: Multi-Disciplinary Progress Notes 09/06/21 14:04 Case Management Note by Tonia Ortez REFERRAL SENT TO ACO Initialized on 09/06/21 14:04 - END OF NOTE 09/06/21 12:00 (created 09/06/21 14:04) Case Management Note by Sara Esparza DR ROUNDED AND EVALUATED, DISCUSSED PLAN OF CARE WITH PT. WANTS TO MAKE INPATIENT FOR CHF. REPORTS THAT PT WILL BE HERE FOR ATLEAST 2 MORE DAYS OF TREATMENT. PT IS IN AGREEMENT TO PLAN OF CARE, AND ABLE TO REPEAT INFORMATION BACK. ALL QUESTIONS ANSWERED. WILL ORDER ECHO IF NOT DONE WITHIN THE LAST 6 MONTHS, AND GET CBC, CMP, AND pBNP IN AM. KEEP ACCURATE I/O, AND GET DAILY WEIGHTS. Initialized on 09/06/21 14:04 - END OF NOTE 09/06/21 11:30 Case Management Note by Tonia Ortez WHILE DOING CASE MANAGEMENT ASSESS PATIENT ALERT AND ORIENTED TO PERSON AND PLACE. HE HOWEVER STATED 2017 FOR YEAR BUT WAS ABLE TO PROPERLY STATE THE MONTH AND UPCOMING HOLIDAY. HE FOLLOWED ALL CONVERSATION WELL AND ANDSWERED QUESTIONS APPROPRIATELY. TRIED TO CALL BOTH CONTACTS ON FACESHEET TO DISCUSS ANY CONCERNS- NO ANSWER. PATIENT HAS [facility]- WAS JUST SEEN 09/05/21. NOTE LEFT WITH OLGA TO HAVE NURSE CALL CASE MAMAGEMENT TO SEE IF THERE ARE ANY CONCERNS WITH PATIENT'S HOME SITUATION Initialized on 09/06/21 11:30 - END OF NOTE 09/06/21 11:29 Case Management Note by Tonia Ortez PATIENT HAS [facility]. THEY WERE NOTIFIED PATIENT IS HERE. THEY WILL NEED TO BE NOTIFIED AT TIME OF DC AT [phone]. THEY WILL NEED FAXED THE DC INSTRUCTIONS, DC MED LIST, DC SUMMARY (IF AVAILABLE) TO [phone] Initialized on 09/06/21 11:29 - END OF NOTE Assessment/Plan (1) SOB (shortness of breath) on exertion Current Visit: Yes Status: Acute Code(s): R06.02 - SHORTNESS OF BREATH (2) Congestive heart failure Current Visit: Yes Status: Acute Qualifiers: Heart failure type: diastolic Heart failure chronicity: acute Qualified Code(s): I50.31 - Acute diastolic (congestive) heart failure Assessment & Plan: Chief Complaint Diagnosis c/o chest pain and shortness of breath for 2 days Allergies Allergy/AdvReac Type Severity Reaction Status Date / Time Penicillins Allergy Verified 09/05/21 13:05 Vital Signs (Last 24 hours) Temp Pulse Resp BP Pulse Ox 09/07/21 07:34 97.1 F 93 H 24 111/58 100 09/07/21 03:53 97.5 F 94 H 16 99/63 97 09/07/21 00:06 97.3 F 95 H 18 106/65 97 09/06/21 19:48 97.3 F 89 18 99/58 98 09/06/21 19:26 96 09/06/21 16:00 98.7 F 93 H 19 104/58 97 09/06/21 12:00 97.8 F 97 H 19 102/64 94 L Current Medications Generic Name Dose Route Start Last Admin Trade Name Freq PRN Reason Stop Dose Admin Apixaban 2.5 mg 09/05/21 22:00 09/06/21 22:30 Apixaban 2.5 Mg Tablet PO 10/05/21 21:59 2.5 mg BID RICARDO Administration Furosemide 40 mg 09/06/21 10:00 09/06/21 22:30 Furosemide 40 Mg/4 Ml Vial IV 10/06/21 09:59 40 mg Q12HT RICARDO Administration Ceftriaxone Sodium/Dextrose 1 g in 50 mls @ 100 mls/hr 09/06/21 22:00 09/06/21 22:30 Rocephin 1 Gm-D5w 50 Ml Bag IV 09/09/21 21:59 100 mls/hr Q24H22 RICARDO Administration Insulin Human Regular 0 unit 09/05/21 19:04 09/06/21 22:31 Insulin Regular, Human 1 Unit SQ 10/05/21 19:03 4 unit UD PRN Administration HYPERGLYCEMIA Discontinued Medications Generic Name Dose Route Start Last Admin Trade Name Freq PRN Reason Stop Dose Admin Furosemide 40 mg 09/05/21 14:34 09/05/21 14:39 Furosemide 40 Mg/4 Ml Vial IV 09/05/21 14:35 40 mg STAT ONE Administration Furosemide Confirm 09/05/21 14:37 Furosemide 40 Mg/4 Ml Vial Administered 09/05/21 14:38 Dose 40 mg .ROUTE .STK-MED ONE Furosemide 40 mg 09/06/21 02:00 09/06/21 01:36 Furosemide 40 Mg/4 Ml Vial IV 10/06/21 01:59 40 mg Q12H RICARDO Administration Ceftriaxone Sodium/Dextrose 1 g in 50 mls @ 100 mls/hr 09/05/21 22:00 09/05/21 22:55 Rocephin 1 Gm-D5w 50 Ml Bag IV 09/08/21 21:59 100 mls/hr Q24H10 RICARDO Administration Intake & Output (Last 24 hours) 09/04/21 09/05/21 09/06/21 09/07/21 11:59 11:59 11:59 11:59 Intake Total 480 1340 Output Total 2618 1825 Balance -1295 -485 Weight 56.6 kg Laboratory Results (Last 24 hours) 09/07/21 09/07/21 09/07/21 06:45 05:30 04:43 WBC 12.3 H RBC 4.63 Hgb 10.6 L Hct 36.2 L MCV 78.2 MCH 22.9 L MCHC 29.3 L RDW 19.6 H Plt Count 796 H MPV 10.3 Sodium 136 L Potassium 4.0 Chloride 96 L Carbon Dioxide 27 Anion Gap 17.3 H BUN 14 Creatinine 1.51 H Estimated GFR 51.1 Glucose 98 POC Glucometer 272 H Calcium 8.6 Total Bilirubin 0.70 AST 19 ALT 12 Alkaline Phosphatase 123 NT-Pro-B Natriuret Pep 5980 H Serum Total Protein 6.2 L Albumin 3.7 09/06/21 09/06/21 09/06/21 20:25 16:02 11:37 WBC RBC Hgb Hct MCV MCH MCHC RDW Plt Count MPV Sodium Potassium Chloride Carbon Dioxide Anion Gap BUN Creatinine Estimated GFR Glucose POC Glucometer 275 H 188 H 114 H Calcium Total Bilirubin AST ALT Alkaline Phosphatase NT-Pro-B Natriuret Pep Serum Total Protein Albumin Orders (Last 24 hours) Category Date Time Status Admission Status Change [Change to Full Admit] ROUTINE Care 09/06/21 12:00 Active Miscellaneous Nursing Order ROUTINE Care 09/06/21 12:00 Active BNP [NT PRO BNP] AM.LAB Lab 09/07/21 04:43 Completed CBC AM.LAB Lab 09/07/21 05:30 Completed CMP AM.LAB Lab 09/07/21 04:43 Completed POCT GLUCOSE Stat Lab 09/06/21 11:37 Completed POCT GLUCOSE Stat Lab 09/06/21 16:02 Completed POCT GLUCOSE Stat Lab 09/06/21 20:25 Completed POCT GLUCOSE Stat Lab 09/07/21 06:45 Completed Ceftriaxone 1 GM/50 ML PREMIX* [ROCEPHIN 1 Gm-D5w 50 ml Med 09/06/21 22:00 Active Bag] 1 g in 50 ml IV Q24H22 Furosemide 40 mg/4 ml [Lasix 40 MG/4 ML] Med 09/06/21 10:00 Active 40 mg IV Q12HT Patient Care Notes (Last 24 hours) 09/06/21 14:10 Nursing Note by Rita Craig Patient ambulated with cane and standby from this nurse. Patient did not audibly become short of breath but patient reported feeling a bit more short of breath toward end of walk. Ambulated approximately 100 feet Initialized on 09/06/21 14:10 - END OF NOTE 09/06/21 14:04 Case Management Note by Tonia Ortez REFERRAL SENT TO ACO Initialized on 09/06/21 14:04 - END OF NOTE 09/06/21 12:00 (created 09/06/21 14:04) Case Management Note by Sara Esparza DR ROUNDED AND EVALUATED, DISCUSSED PLAN OF CARE WITH PT. WANTS TO MAKE INPATIENT FOR CHF. REPORTS THAT PT WILL BE HERE FOR ATLEAST 2 MORE DAYS OF TREATMENT. PT IS IN AGREEMENT TO PLAN OF CARE, AND ABLE TO REPEAT INFORMATION BACK. ALL QUESTIONS ANSWERED. WILL ORDER ECHO IF NOT DONE WITHIN THE LAST 6 MONTHS, AND GET CBC, CMP, AND pBNP IN AM. KEEP ACCURATE I/O, AND GET DAILY WEIGHTS. Initialized on 09/06/21 14:04 - END OF NOTE 09/06/21 11:30 Case Management Note by Tonia Ortez WHILE DOING CASE MANAGEMENT ASSESS PATIENT ALERT AND ORIENTED TO PERSON AND PLACE. HE HOWEVER STATED 2016 FOR YEAR BUT WAS ABLE TO PROPERLY STATE THE MONTH AND UPCOMING HOLIDAY. HE FOLLOWED ALL CONVERSATION WELL AND ANDSWERED QUESTIONS APPROPRIATELY. TRIED TO CALL BOTH CONTACTS ON FACESHEET TO DISCUSS ANY CONCERNS- NO ANSWER. PATIENT HAS [facility]- WAS JUST SEEN 09/05/21. NOTE LEFT WITH OLGA TO HAVE NURSE CALL CASE MAMAGEMENT TO SEE IF THERE ARE ANY CONCERNS WITH PATIENT'S HOME SITUATION Initialized on 09/06/21 11:30 - END OF NOTE 09/06/21 11:29 Case Management Note by Tonia Ortez PATIENT HAS [facility]. THEY WERE NOTIFIED PATIENT IS HERE. THEY WILL NEED TO BE NOTIFIED AT TIME OF DC AT [phone]. THEY WILL NEED FAXED THE DC INSTRUCTIONS, DC MED LIST, DC SUMMARY (IF AVAILABLE) TO [phone] Initialized on 09/06/21 11:29 - END OF NOTE Code(s): I50.9 - HEART FAILURE, UNSPECIFIED (3) Elevated brain natriuretic peptide (BNP) level Current Visit: Yes Status: Acute Code(s): R79.89 - OTHER SPECIFIED ABNORMAL FINDINGS OF BLOOD CHEMISTRY (4) Elevated d-dimer Current Visit: Yes Status: Acute Code(s): R79.89 - OTHER SPECIFIED ABNORMAL FINDINGS OF BLOOD CHEMISTRY (5) Hyperglycemia Current Visit: Yes Status: Acute Code(s): R73.9 - HYPERGLYCEMIA, UNSPECIFIED
[2021-09-07] MEDS: HUMULIN R SQ PRN (09:14)
[2021-09-07] MEDS: Lasix 40 MG/4 ML IV SCH ×2 (09:15→21:06)
[2021-09-07] MEDS: ELIQUIS 2.5 MG TABLET PO SCH ×2 (09:18→21:06)
[2021-09-07] MEDS ORDERED: TYLENOL 325 MG PO PRN (09:29)
--- NOTE | 2021-09-07 12:43 | ECHO ---
Transthoracic echocardiographic examination and color Doppler was done on 09/16/2021. INDICATION: Congestive heart failure. IMPRESSION: 1) GLOBAL LEFT VENTRICULAR HYPOKINESIA. EJECTION FRACTION OF AROUND 20%. 2) MILD TO MODERATE MITRAL REGURGITATION. 3) LEFT ATRIAL DILATATION. 4) DILATED LEFT VENTRICLE. 5) MILD TO MODERATELY DILATED RIGHT SIDE CHAMBERS. 6) LEFT VENTRICLE DIASTOLIC DYSFUNCTION. The left ventricle is visualized and demonstrated left ventricular hypokinesia with an ejection fraction of about 20%. The left ventricle is dilated. The mitral valve is seen and this opens adequately. There is mild to moderate mitral regurgitation. Left atrium is enlarged. The aortic valve opens adequately. The right side chambers are mild to moderately dilated. Tissue Doppler study of the lateral mitral annulus is suggestive of left ventricle diastolic dysfunction.
[2021-09-07] MEDS: FEOSOL 325 MG PO SCH (13:29)
[2021-09-07] MEDS: Amaryl 2 MG PO SCH (13:29)
[2021-09-07] MEDS: COLACE Liquid 50 MG/5 ML PO SCH ×2 (13:30→22:23)
[2021-09-07] MEDS: ROCEPHIN 1 Gm-D5w 50 ml Bag** 1 G/50 ML IVPB IV SCH (21:07)
[2021-09-08 06:06] LABS: Hematocrit 37.6 % (42-50); Hemoglobin 10.9 gm/dl (12.5-18.0); Mean Cell Volume 79.2 fl (78-100); Mean Corpuscular Hemoglobin 22.9 pg (26-32); Mean Platelet Volume 10.2 fl (7.5-11.0); Platelet Count 766 K/mm3 (150-450); Red Blood Count 4.75 M/mm3 (4.1-5.6); White Blood Count 13.5 K/mm3 (4.0-10.5)
[2021-09-08 07:34] LABS: ALBUMIN 3.9 g/dL (3.5-5.0); ANION GAP 16.9 MEQ/L (5-15); BILIRUBIN,TOTAL 0.7 mg/dL (0.2-1.3); Calcium 8.8 mg/dL (8.4-10.2); Creatinine 1 1.79 mg/dL (0.66-1.25); Potassium 3.8 mmol/L (3.5-5.1); Total Protein 6.4 g/dL (6.3-8.2)
[2021-09-08] MEDS: HUMULIN R SQ PRN (07:53)
[2021-09-08] MEDS: Amaryl 2 MG PO SCH (07:53)
--- NOTE | 2021-09-08 08:23 | PCM.NOTE ---
Date and Time: 09/08/21821 Subjective Assessment: doing better - Review of Systems Constitutional: No Fever, No Chills Eyes: No Symptoms Ears, Nose, & Throat: No Symptoms Respiratory: No Cough, No Short Of Breath Cardiac: No Chest Pain, No Edema, No Syncope Abdominal/Gastrointestinal: No Abdominal Pain, No Nausea, No Vomiting, No Diarrhea Genitourinary Symptoms: No Dysuria Musculoskeletal: No Back Pain, No Neck Pain Skin: No Rash Neurological: No Dizziness, No Focal Weakness, No Sensory Changes Psychological: No Symptoms Endocrine: No Symptoms Hematologic/Lymphatic: No Symptoms Immunological/Allergic: No Symptoms Objective Exam General Appearance: no apparent distress, alert Neurologic Exam: alert, oriented x 3, cooperative, normal mood/affect, nml cerebellar function, sensation nml, No motor deficits Skin Exam: normal color, warm, dry Eye Exam: PERRL, EOMI, eyes nml inspection Ears, Nose, Throat Exam: normal ENT inspection, pharynx normal, moist mucous membranes Neck Exam: normal inspection, non-tender, supple, full range of motion Respiratory Exam: normal breath sounds, lungs clear, No respiratory distress Cardiovascular Exam: regular rate/rhythm, normal heart sounds Gastrointestinal/Abdomen Exam: soft, No tenderness, No mass Extremity Exam: normal inspection, normal range of motion Back Exam: normal inspection, normal range of motion, No CVA tenderness, No vertebral tenderness Male Genitalia Exam: deferred Rectal Exam: deferred OBJECTIVE DATA Vital Signs: Vital Signs - 24 hr Temp Pulse Resp BP Pulse Ox 09/08/21 04:00 97.3 F 95 H 18 92/50 96 09/08/21 00:00 98.6 F 100 H 20 97/53 96 09/07/21 20:00 98.6 F 95 H 24 101/62 98 09/07/21 16:00 96.3 F 100 H 20 107/70 98 09/07/21 12:00 97.5 F 93 H 20 118/59 98 Pain Assessment - Last Documented Pain Intensity 0 Pain Scale Used 0-10 Pain Scale Intake and Output: Intake & Output 09/05/21 09/06/21 09/07/21 09/08/21 11:59 11:59 11:59 11:59 Intake Total 480 1580 1320 Output Total 1775 9445 800 Balance -1295 -645 520 Weight 56.6 kg 55.8 kg 53.55 kg Lab Results: Lab Results-Last 24 Hours 09/07/21 09/07/21 09/07/21 Range/Units 04:00 11:41 16:20 WBC (4.0-10.5) K/mm3 RBC (4.1-5.6) M/mm3 Hgb (12.5-18.0) gm/dl Hct (42-50) % MCV (78-100) fl MCH (26-32) pg MCHC (32-36) g/dl RDW (11.5-14.0) % Plt Count (150-450) K/mm3 MPV (7.5-11.0) fl Sodium (137-145) mmol/L Potassium (3.5-5.1) mmol/L Chloride (98-107) mmol/L Carbon Dioxide (22-30) mmol/L Anion Gap (5-15) MEQ/L BUN (9-20) mg/dL Creatinine (0.66-1.25) mg/dL Estimated GFR ML/MIN Glucose (74-106) mg/dL POC Glucometer 165 H 155 H (74 to 106) mg/dL Calcium (8.4-10.2) mg/dL Magnesium 1.8 (1.6-2.3) mg/dL Total Bilirubin (0.2-1.3) mg/dL AST (17-59) U/L ALT (0-50) U/L Alkaline Phosphatase (38-126) U/L NT-Pro-B Natriuret Pep (0-900) pg/mL Serum Total Protein (6.3-8.2) g/dL Albumin (3.5-5.0) g/dL 09/07/21 09/08/21 09/08/21 Range/Units 20:54 05:35 05:35 WBC 13.5 H (4.0-10.5) K/mm3 RBC 4.75 (4.1-5.6) M/mm3 Hgb 10.9 L (12.5-18.0) gm/dl Hct 37.6 L (42-50) % MCV 79.2 (78-100) fl MCH 22.9 L (26-32) pg MCHC 29.0 L (32-36) g/dl RDW 20.0 H (11.5-14.0) % Plt Count 766 H (150-450) K/mm3 MPV 10.2 (7.5-11.0) fl Sodium 133 L (137-145) mmol/L Potassium 3.8 (3.5-5.1) mmol/L Chloride 92 L (98-107) mmol/L Carbon Dioxide 28 (22-30) mmol/L Anion Gap 16.9 H (5-15) MEQ/L BUN 15 (9-20) mg/dL Creatinine 1.79 H (0.66-1.25) mg/dL Estimated GFR 42.0 ML/MIN Glucose 245 H (74-106) mg/dL POC Glucometer 157 H (74 to 106) mg/dL Calcium 8.8 (8.4-10.2) mg/dL Magnesium (1.6-2.3) mg/dL Total Bilirubin 0.70 (0.2-1.3) mg/dL AST 17 (17-59) U/L ALT 11 (0-50) U/L Alkaline Phosphatase 128 H (38-126) U/L NT-Pro-B Natriuret Pep 3910 H (0-900) pg/mL Serum Total Protein 6.4 (6.3-8.2) g/dL Albumin 3.9 (3.5-5.0) g/dL 09/08/21 Range/Units 07:01 WBC (4.0-10.5) K/mm3 RBC (4.1-5.6) M/mm3 Hgb (12.5-18.0) gm/dl Hct (42-50) % MCV (78-100) fl MCH (26-32) pg MCHC (32-36) g/dl RDW (11.5-14.0) % Plt Count (150-450) K/mm3 MPV (7.5-11.0) fl Sodium (137-145) mmol/L Potassium (3.5-5.1) mmol/L Chloride (98-107) mmol/L Carbon Dioxide (22-30) mmol/L Anion Gap (5-15) MEQ/L BUN (9-20) mg/dL Creatinine (0.66-1.25) mg/dL Estimated GFR ML/MIN Glucose (74-106) mg/dL POC Glucometer 255 H (74 to 106) mg/dL Calcium (8.4-10.2) mg/dL Magnesium (1.6-2.3) mg/dL Total Bilirubin (0.2-1.3) mg/dL AST (17-59) U/L ALT (0-50) U/L Alkaline Phosphatase (38-126) U/L NT-Pro-B Natriuret Pep (0-900) pg/mL Serum Total Protein (6.3-8.2) g/dL Albumin (3.5-5.0) g/dL Radiology Exams: Imaging Report Continued Page: Name: KIMBERLY BARNETT Procedure Date: 09/06/21 Procedures: [id number] US/ECHO W/2D AND DOPPLER Technologist: Alexus Pat Transcribed: 09/07/21 1238 Hvac/R Instructor: Marly Tillman Printed: [~ rep prt dt last] [~ rep prt tm last] Page: Imaging Report [~ rep ct labl] Technologist: Alexus Pat Transcribed: 09/07/21 1238 Hvac/R Instructor: Marly Tillman Printed: [~ rep prt dt last] [~ rep prt tm last] Page: Imaging Report [~ rep ct labl] [id number] US/ECHO W/2D AND DOPPLER Transthoracic echocardiographic examination and color Doppler was done on 09/16/2021. INDICATION: Congestive heart failure. IMPRESSION: 1) GLOBAL LEFT VENTRICULAR HYPOKINESIA. EJECTION FRACTION OF AROUND 20%. 2) MILD TO MODERATE MITRAL REGURGITATION. 3) LEFT ATRIAL DILATATION. 4) DILATED LEFT VENTRICLE. 5) MILD TO MODERATELY DILATED RIGHT SIDE CHAMBERS. 6) LEFT VENTRICLE DIASTOLIC DYSFUNCTION. The left ventricle is visualized and demonstrated left ventricular hypokinesia with an ejection fraction of about 20%. The left ventricle is dilated. The mitral valve is seen and this opens adequately. There is mild to moderate mitral regurgitation. Left atrium is enlarged. The aortic valve opens adequately. The right side chambers are mild to moderately dilated. Tissue Doppler study of the lateral mitral annulus is suggestive of left ventricle diastolic dysfunction Multi-Disciplinary Progress Notes: Multi-Disciplinary Progress Notes 09/07/21 12:54 Case Management Note by Tonia Ortez S/W PATIENT- HE CONTINUES TO DENY ANY NEW NEEDS FOR DC. PATIENT REPORTS HE HAS NOT SEEN AN AID FROM [facility] YET. EMAILED [facility] TO MAKE SURE PATIENT IS SET UP FOR AN AID. PATIENT ALSO C/O HIP/LEG PAIN TO DR. TAMEZ. WILL SET PATIENT UP WITH PHYSICAL THERAPY THRU [facility] WELL. ORDER FAXED AT THIS TIME Initialized on 09/07/21 12:54 - END OF NOTE Assessment/Plan (1) SOB (shortness of breath) on exertion Current Visit: Yes Status: Acute Code(s): R06.02 - SHORTNESS OF BREATH (2) Congestive heart failure Current Visit: Yes Status: Acute Qualifiers: Heart failure type: combined systolic and diastolic Heart failure chronicity: acute on chronic Qualified Code(s): I50.43 - Acute on chronic combined systolic (congestive) and diastolic (congestive) heart failure Code(s): I50.9 - HEART FAILURE, UNSPECIFIED (3) Elevated brain natriuretic peptide (BNP) level Current Visit: Yes Status: Acute Code(s): R79.89 - OTHER SPECIFIED ABNORMAL FINDINGS OF BLOOD CHEMISTRY (4) Elevated d-dimer Current Visit: Yes Status: Acute Code(s): R79.89 - OTHER SPECIFIED ABNORMAL FINDINGS OF BLOOD CHEMISTRY (5) Hyperglycemia Current Visit: Yes Status: Acute Code(s): R73.9 - HYPERGLYCEMIA, UNSPECIFIED
[2021-09-08] MEDS: ELIQUIS 2.5 MG TABLET PO SCH (09:26)
[2021-09-08] MEDS: Lasix 40 MG/4 ML IV SCH (09:26)
[2021-09-08] MEDS: COLACE Liquid 50 MG/5 ML PO SCH (09:26)
[2021-09-08] MEDS: FEOSOL 325 MG PO SCH ×2 (09:26→09:29)
[2021-09-08] MEDS ORDERED: TORAdol 30 mg Injection IV PRN (12:34)
[2021-09-08] MEDS ORDERED: TORAdol 30 mg Injection IV ONE (12:36)
--- NOTE | 2021-09-11 21:06 | PCM.DS ---
Discharge Summary Date of Admission: 09/06/21 12:00 Admitting Physician: CAROLYN TAMEZ Primary Care Provider: CAROLYN TAMEZ Allergies Allergies Penicillins Allergy (Verified 09/05/21 13:05) Hospital Summary - Hospital Course Hospital Course: Chief Complaint Diagnosis c/o chest pain and shortness of breath for 2 days Allergies Allergy/AdvReac Type Severity Reaction Status Date / Time Penicillins Allergy Verified 09/05/21 13:05 Home Medications Medication Instructions Recorded Confirmed Last Taken Type Apixaban [Eliquis 2.5 mg Tablet] 2.5 mg PO BID 30 Days tablet 09/08/21 Unknown Rx Docusate Sodium 50 mg/5 ml 100 mg PO BID ml 09/08/21 Unknown Rx [COLACE Liquid 50 MG/5 ML] Ferrous Sulfate 325 mg [Feosol 325 mg PO DAILY tablet 09/08/21 Unknown Rx 325 mg] Glimepiride 2 mg [Amaryl 2 1 mg PO BREAKFAST #30 tablet 09/08/21 Unknown Rx MG] Metoprolol Succinate 0 mg PO HS #30 09/08/21 Unknown Rx Spironolactone 25 mg PO BID #30 tablet 09/08/21 Unknown Rx lisinopriL [Zestril] 2.5 mg PO DAILY #30 tablet 09/08/21 Unknown Rx Current Medications Discontinued Medications Generic Name Dose Route Start Last Admin Trade Name Freq PRN Reason Stop Dose Admin Acetaminophen 650 mg 09/07/21 09:29 09/07/21 10:00 Acetaminophen 325 Mg Tablet PO 10/07/21 09:28 650 mg Q4H PRN PRN Administration PAIN AND/OR FEVER Apixaban 2.5 mg 09/05/21 22:00 09/08/21 09:26 Apixaban 2.5 Mg Tablet PO 10/05/21 21:59 2.5 mg BID RICARDO Administration Docusate Sodium 100 mg 09/07/21 13:00 09/08/21 09:26 Docusate Sodium 50 Mg/5 Ml Liquid PO 10/07/21 12:59 Not Given BID RICARDO Ferrous Sulfate 325 mg 09/07/21 13:00 09/08/21 09:29 Ferrous Sulfate 325 Mg Tablet PO 10/07/21 12:59 Not Given DAILY RICARDO Furosemide 40 mg 09/05/21 14:34 09/05/21 14:39 Furosemide 40 Mg/4 Ml Vial IV 09/05/21 14:35 40 mg STAT ONE Administration Furosemide Confirm 09/05/21 14:37 Furosemide 40 Mg/4 Ml Vial Administered 09/05/21 14:38 Dose 40 mg .ROUTE .STK-MED ONE Furosemide 40 mg 09/06/21 02:00 09/06/21 01:36 Furosemide 40 Mg/4 Ml Vial IV 10/06/21 01:59 40 mg Q12H RICARDO Administration Furosemide 40 mg 09/06/21 10:00 09/08/21 09:26 Furosemide 40 Mg/4 Ml Vial IV 10/06/21 09:59 40 mg Q12HT RICARDO Administration Glimepiride 1 mg 09/07/21 13:00 09/08/21 07:53 Glimepiride 2 Mg Tablet PO 10/07/21 12:59 1 mg BREAKFAST RICARDO Administration Ceftriaxone Sodium/Dextrose 1 g in 50 mls @ 100 mls/hr 09/05/21 22:00 09/05/21 22:55 Rocephin 1 Gm-D5w 50 Ml Bag IV 09/08/21 21:59 100 mls/hr Q24H10 RICARDO Administration Ceftriaxone Sodium/Dextrose 1 g in 50 mls @ 100 mls/hr 09/06/21 22:00 1 11/07/20 21:07 Rocephin 1 Gm-D5w 50 Ml Bag IV 09/09/21 21:59 100 mls/hr Q24H22 RICARDO Administration Insulin Human Regular 0 unit 09/05/21 19:04 09/08/21 07:53 Insulin Regular, Human 1 Unit SQ 10/05/21 19:03 4 unit UD PRN Administration HYPERGLYCEMIA Ketorolac Tromethamine 30 mg 09/08/21 12:34 Ketorolac Tromethamine 30 Mg/Ml Inj IV 09/13/21 12:33 Q6H PRN PRN PAIN Ketorolac Tromethamine 30 mg 09/08/21 12:36 09/08/21 13:04 Ketorolac Tromethamine 30 Mg/Ml Inj IV 09/08/21 12:37 30 mg ONCE ONE Administration Intake & Output (Last 24 hours) 09/09/21 09/10/21 09/11/21 09/12/21 11:59 11:59 11:59 11:59 Intake Total 240 Balance 240 Weight 53.55 kg - Vitals & Intake/Output Vital Signs: Vital Signs Temperature 97.5 F 09/08/21 12:00 Pulse Rate 99 H 09/08/21 12:00 Respiratory Rate 24 09/08/21 12:00 Blood Pressure 112/66 09/08/21 12:00 O2 Sat by Pulse Oximetry 98 09/08/21 12:00 Intake & Output: Intake & Output 09/09/21 09/10/21 09/11/21 09/12/21 11:59 11:59 11:59 11:59 Intake Total 240 Balance 240 Weight 53.55 kg - Lab Result Diagrams: 09/08/21 05:35 09/08/21 05:35 - Procedures and Test Procedures and Tests throughout Hospitalization: Therapy Orders & Screens 09/05/21 17:55 Oxygen NASAL CANNULA 2 lpm Comment: Diagnosis: CHF Discharge Exam General Appearance: no apparent distress, alert Neurologic Exam: alert, oriented x 3, cooperative, normal mood/affect, nml cerebellar function, sensation nml, No motor deficits Eye Exam: PERRL, EOMI, eyes nml inspection Ears, Nose, Throat Exam: normal ENT inspection, pharynx normal, moist mucous membranes Neck Exam: normal inspection, non-tender, supple, full range of motion Respiratory Exam: normal breath sounds, lungs clear, No respiratory distress Cardiovascular Exam: regular rate/rhythm, normal heart sounds Gastrointestinal/Abdomen Exam: soft, No tenderness, No mass Male Genitalia Exam: deferred Rectal Exam: deferred Back Exam: normal inspection, normal range of motion, No CVA tenderness, No vertebral tenderness Extremity Exam: normal inspection, normal range of motion Skin Exam: normal color, warm, dry Final Diagnosis/Problem List - Final Discharge Diagnosis/Problem (1) Congestive heart failure Status: Acute Priority: High Assessment & Plan: Chief Complaint Diagnosis c/o chest pain and shortness of breath for 2 days Allergies Allergy/AdvReac Type Severity Reaction Status Date / Time Penicillins Allergy Verified 09/05/21 13:05 Home Medications Medication Instructions Recorded Confirmed Last Taken Type Apixaban [Eliquis 2.5 mg Tablet] 2.5 mg PO BID 30 Days tablet 09/08/21 Unknown Rx Docusate Sodium 50 mg/5 ml 100 mg PO BID ml 09/08/21 Unknown Rx [COLACE Liquid 50 MG/5 ML] Ferrous Sulfate 325 mg [Feosol 325 mg PO DAILY tablet 09/08/21 Unknown Rx 325 mg] Glimepiride 2 mg [Amaryl 2 1 mg PO BREAKFAST #30 tablet 09/08/21 Unknown Rx MG] Metoprolol Succinate 0 mg PO HS #30 09/08/21 Unknown Rx Spironolactone 25 mg PO BID #30 tablet 09/08/21 Unknown Rx lisinopriL [Zestril] 2.5 mg PO DAILY #30 tablet 09/08/21 Unknown Rx Current Medications Discontinued Medications Generic Name Dose Route Start Last Admin Trade Name Freq PRN Reason Stop Dose Admin Acetaminophen 650 mg 09/07/21 09:29 09/07/21 10:00 Acetaminophen 325 Mg Tablet PO 10/07/21 09:28 650 mg Q4H PRN PRN Administration PAIN AND/OR FEVER Apixaban 2.5 mg 09/05/21 22:00 09/08/21 09:26 Apixaban 2.5 Mg Tablet PO 10/05/21 21:59 2.5 mg BID RICARDO Administration Docusate Sodium 100 mg 09/07/21 13:00 09/08/21 09:26 Docusate Sodium 50 Mg/5 Ml Liquid PO 10/07/21 12:59 Not Given BID RICARDO Ferrous Sulfate 325 mg 09/07/21 13:00 09/08/21 09:29 Ferrous Sulfate 325 Mg Tablet PO 10/07/21 12:59 Not Given DAILY RICARDO Furosemide 40 mg 09/05/21 14:34 09/05/21 14:39 Furosemide 40 Mg/4 Ml Vial IV 09/05/21 14:35 40 mg STAT ONE Administration Furosemide Confirm 09/05/21 14:37 Furosemide 40 Mg/4 Ml Vial Administered 09/05/21 14:38 Dose 40 mg .ROUTE .STK-MED ONE Furosemide 40 mg 09/06/21 02:00 09/06/21 01:36 Furosemide 40 Mg/4 Ml Vial IV 10/06/21 01:59 40 mg Q12H RICARDO Administration Furosemide 40 mg 09/06/21 10:00 09/08/21 09:26 Furosemide 40 Mg/4 Ml Vial IV 10/06/21 09:59 40 mg Q12HT RICARDO Administration Glimepiride 1 mg 09/07/21 13:00 09/08/21 07:53 Glimepiride 2 Mg Tablet PO 10/07/21 12:59 1 mg BREAKFAST RICARDO Administration Ceftriaxone Sodium/Dextrose 1 g in 50 mls @ 100 mls/hr 09/05/21 22:00 09/05/21 22:55 Rocephin 1 Gm-D5w 50 Ml Bag IV 09/08/21 21:59 100 mls/hr Q24H10 RICARDO Administration Ceftriaxone Sodium/Dextrose 1 g in 50 mls @ 100 mls/hr 09/06/21 22:00 09/07/21 21:07 Rocephin 1 Gm-D5w 50 Ml Bag IV 09/09/21 21:59 100 mls/hr Q24H22 RICARDO Administration Insulin Human Regular 0 unit 09/05/21 19:04 09/08/21 07:53 Insulin Regular, Human 1 Unit SQ 10/05/21 19:03 4 unit UD PRN Administration HYPERGLYCEMIA Ketorolac Tromethamine 30 mg 09/08/21 12:34 Ketorolac Tromethamine 30 Mg/Ml Inj IV 09/13/21 12:33 Q6H PRN PRN PAIN Ketorolac Tromethamine 30 mg 09/08/21 12:36 09/08/21 13:04 Ketorolac Tromethamine 30 Mg/Ml Inj IV 09/08/21 12:37 30 mg ONCE ONE Administration Intake & Output (Last 24 hours) 09/09/21 09/10/21 09/11/21 09/12/21 11:59 11:59 11:59 11:59 Intake Total 240 Balance 240 Weight 53.55 kg Code(s): I50.9 - HEART FAILURE, UNSPECIFIED (2) SOB (shortness of breath) on exertion Status: Resolved Code(s): R06.02 - SHORTNESS OF BREATH (3) Elevated brain natriuretic peptide (BNP) level Status: Resolved Code(s): R79.89 - OTHER SPECIFIED ABNORMAL FINDINGS OF BLOOD CHEMISTRY (4) Elevated d-dimer Status: Resolved Code(s): R79.89 - OTHER SPECIFIED ABNORMAL FINDINGS OF BLOOD CHEMISTRY (5) Hyperglycemia Status: Resolved Code(s): R73.9 - HYPERGLYCEMIA, UNSPECIFIED - Discharge Discharge Date: 09/08/21 Disposition: Home, Self-Care Condition: Stable Prescriptions: New Glimepiride 2 mg [Amaryl 2 MG] 1 mg PO BREAKFAST #30 tablet Docusate Sodium 50 mg/5 ml [COLACE Liquid 50 MG/5 ML] 100 mg PO BID ml Apixaban [Eliquis 2.5 mg Tablet] 2.5 mg PO BID 30 Days tablet Ferrous Sulfate 325 mg [Feosol 325 mg] 325 mg PO DAILY tablet Spironolactone 25 mg PO BID #30 tablet lisinopriL [Zestril] 2.5 mg PO DAILY #30 tablet Metoprolol Succinate 0 mg PO HS #30 Continue Azithromycin 250 mg [Zithromax 250 MG TABLET] 250 mg PO ZPACK #6 tablet Discontinued Apixaban [Eliquis 2.5 mg Tablet] 2.5 mg PO BID 10 Days #20 tablet Instructions: Type 2 Diabetes, Glimepiride, Lisinopril, Metoprolol, Spironolactone Additional Instructions: GLUCOMETER AND SUPPLIES WERE SENT TO [facility]. CHECK YOUR BLOOD SUGAR ONCE EVERY MORNING BEFORE EATING. [facility] WILL TEACH YOU HOW TO DO THAT. Follow up with: MARISOL LEAHY [CONSULTING PHYSICIAN] - 09/13/21 1:00 pm CAROLYN TAMEZ MD [Primary Care Provider] - 09/19/21 10:00 am Forms: CHF Discharge Instructions
[2021-09-12 16:42] VITALS: BP 112/66; PULSE 99; O2SAT 98
== END 2021-09-08 13:41 | disposition home or self-care (01) | DRG 292 ==
LOC: ED 13:02 → MED SURG 17:50 → OBSVTOIN 09-06 12:00
PROVIDERS: ADMIT General Practice; ATTEND General Practice
DX: I50.31 Acute diastolic (congestive) heart failure (principal); E87.1 Hypo-osmolality and hyponatremia; E11.65 Type 2 diabetes mellitus with hyperglycemia; D75.839 Thrombocytosis, unspecified; R79.89 Other specified abnormal findings of blood chemistry; Z20.828 Contact with and (suspected) exposure to other viral communicable diseases; R79.1 Abnormal coagulation profile; Z79.899 Other long term (current) drug therapy; Z79.01 Long term (current) use of anticoagulants
CPT/HCPCS: 0241U; 36000; 36415; 71045; 80048; 80053; 82947; 83036; 83735; 83880; 85025; 85027; 85379; 93005; 93041; 93268; 93306; 94760; 94762; 96374; 99285; G0378; J0696; J1815; J1885; J1940; A9270-GY

== ENCOUNTER 2021-11-22 19:16 | Emergency (ER) | payer MEDICARE ==
--- NOTE | 2021-11-22 19:18 | ERPHSYRPT ---
- History of Present Illness Time Seen by Provider: 11/22/21 19:17 Source: patient Exam Limitations: no limitations Physician History: This 56-year-old white male who has a history of hypertension, diabetes and is on Eliquis. Patient has a history of hemorrhoid issues. Patient states that his hemorrhoids are sticking out earlier today and there is tenderness. He has no complaints of any significant bleeding present. Patient has no abdominal pain. Timing/Duration: today Severity: mild Associated Symptoms: denies symptoms Allergies/Adverse Reactions: Penicillins Allergy (Verified 11/22/21 19:46) Hx Tetanus, Diphtheria Vaccination/Date Given: No ([place]) Hx Influenza Vaccination/Date Given: No Hx Pneumococcal Vaccination/Date Given: No Travel Risk - International Travel Have you traveled outside of the country in past 3 weeks: No - Coronavirus Screening Are you exhibiting any of the following symptoms?: No Close contact with a COVID-19 positive Pt in past 14-21 Days: No - Vaccine Status Have you recieved a Covid-19 vaccination: (Unknown.) - Review of Systems Constitutional: No Symptoms Eyes: No Symptoms Ears, Nose, & Throat: No Symptoms Respiratory: No Symptoms Cardiac: No Symptoms Abdominal/Gastrointestinal: Other (Evaluation of his perianal area shows no external hemorrhoids present. There are no internal hemorrhoid sticking out at this time. There is no bleeding. There is some tenderness that is mild to palpation of the area.) Genitourinary Symptoms: No Symptoms Musculoskeletal: No Symptoms Skin: No Symptoms Neurological: No Symptoms Psychological: No Symptoms Endocrine: No Symptoms Hematologic/Lymphatic: No Symptoms Immunological/Allergic: No Symptoms - Past Medical History Pertinent Past Medical History: Yes Neurological History: Other ENT History: No Pertinent History Cardiac History: No Pertinent History Respiratory History: No Pertinent History Endocrine Medical History: Diabetes Type II Musculoskeletal History: Arthritis GI Medical History: No Pertinent History History: No Pertinent History Psycho-Social History: No Pertinent History Male Reproductive Disorders: No Pertinent History Other Medical History: hx of head injury 8 yrs ago. congenital neck deformity. - Past Surgical History Past Surgical History: Yes Neuro Surgical History: Other Cardiac: No Pertinent History Respiratory: No Pertinent History Gastrointestinal: No Pertinent History Genitourinary: Kidney Surgery Musculoskeletal: Joint Replacement Male Surgical History: No Pertinent History Other Surgical History: unknown - Social History Smoking Status: Never smoker Exposure to second hand smoke: No Drug Use: none Patient Lives Alone: Yes - Physical Exam General Appearance: no apparent distress, alert, anxiety Eye Exam: PERRL/EOMI, eyes nml inspection Ears, Nose, Throat Exam: normal ENT inspection, moist mucous membranes Neck Exam: normal inspection, non-tender, supple, full range of motion Respiratory Exam: airway intact, No chest tenderness, No respiratory distress Gastrointestinal/Abdomen Exam: No tenderness Rectal Exam: normal exam, tenderness (3 mild) Back Exam: normal inspection, normal range of motion, No CVA tenderness, No vertebral tenderness Extremity Exam: normal inspection, normal range of motion, pelvis stable Neurologic Exam: alert, oriented x 3, cooperative, swing tender II-XII nml as tested, normal mood/affect, nml cerebellar function, nml station & gait, sensation nml Skin Exam: normal color, warm, dry Lymphatic Exam: No adenopathy SpO2 Interpretation: normal O2 Delivery: Room Air - Course Nursing assessment & vital signs reviewed: Yes - Progress Progress: unchanged Counseled pt/family regarding: diagnosis, need for follow-up - Departure Departure Disposition: Home Clinical Impression: Hemorrhoids Condition: Stable Critical Care Time: No Referrals: CAROLYN TAMEZ MD [Primary Care Provider] - Follow up/PCP as directed Additional Instructions: Warm sitz bath with soapy water or Epson salt twice a day. Follow-up with your primary prescribing provider for further management.
[2021-11-22] MEDS ORDERED: ANUSOL-HC 2.5% CREAM 30 GM TP PRN (20:05)
[2021-11-22] MEDS ORDERED: TUCKS TP ONE (20:18)
[2021-11-22 20:27] VITALS: O2SAT 96
[2021-11-22 20:38] VITALS: BP 115/94; PULSE 104
== END 2021-11-22 20:45 | disposition home or self-care (01) ==
LOC: ED 19:16
DX: K64.8 Other hemorrhoids (principal); I10 Essential (primary) hypertension; E11.9 Type 2 diabetes mellitus without complications; Z79.01 Long term (current) use of anticoagulants
CPT/HCPCS: 99283; A9270-GY

== ENCOUNTER 2021-11-28 10:26 | Emergency (ER) | payer MEDICARE ==
[2021-11-28] MEDS ORDERED: Sodium Chloride 0.9% 1000 ML 1,000 ML IV SCH (11:00)
--- NOTE | 2021-11-28 11:17 | ERPHSYRPT ---
- History of Present Illness Time Seen by Provider: 11/28/21 11:00 Source: patient Exam Limitations: no limitations Patient Subjective Stated Complaint: Weakness Triage Nursing Assessment: Patient brought back to ED via w/c and assisted to bed with assist of 2. Patient A+O X3. Patient's skin pale, warm and dry. Patient complains of weakness for the past few days. Patient states he is unable to walk well and just doesn't feel well. Patient denies pain or discomfort. Lungs clear a/p jaqueline. Physician History: Patient is a 56-year-old male presents to our ED for evaluation of generalized weakness noncompliant with medication regimen. Patient appears pale on observation. Patient states he has a history of anemia requiring transfusion. No reported nausea or vomiting. No diarrhea. No rash. No fever. Symptoms are constant. Symptoms are moderate in intensity. No specific worsening improving factors. Patient voices no other complaints concerns at this time. Timing/Duration: week(s) (1 week) Severity: moderate Modifying Factors: Improves With: nothing Associated Symptoms: No nausea, No vomiting, No abdominal pain, No chills, No fever, No loss of appetite, No malaise, No syncope, No seizure, No weakness Allergies/Adverse Reactions: Penicillins Allergy (Verified 11/28/21 10:49) Home Medications: Atorvastatin Calcium 1 tab PO DAILY 11/28/21 [History] Hx Tetanus, Diphtheria Vaccination/Date Given: No () Hx Influenza Vaccination/Date Given: No Hx Pneumococcal Vaccination/Date Given: No Immunizations Up to Date: Yes Travel Risk - International Travel Have you traveled outside of the country in past 3 weeks: No - Coronavirus Screening Are you exhibiting any of the following symptoms?: No Close contact with a COVID-19 positive Pt in past 14-21 Days: No - Vaccine Status Have you recieved a Covid-19 vaccination: (Unknown.) - Review of Systems Constitutional: No Symptoms, No Fever, No Chills Eyes: No Symptoms Ears, Nose, & Throat: No Symptoms Respiratory: No Symptoms, No Cough, No Dyspnea Cardiac: No Symptoms, No Chest Pain, No Edema, No Syncope Abdominal/Gastrointestinal: No Symptoms, No Abdominal Pain, No Nausea, No Vomiting, No Diarrhea Genitourinary Symptoms: No Symptoms, No Dysuria Musculoskeletal: No Symptoms, No Back Pain, No Neck Pain Skin: No Symptoms, No Rash Neurological: No Symptoms, No Dizziness, No Focal Weakness, No Sensory Changes Psychological: No Symptoms Endocrine: No Symptoms Hematologic/Lymphatic: No Symptoms Immunological/Allergic: No Symptoms All Other Systems: Reviewed and Negative - Past Medical History Pertinent Past Medical History: Yes Neurological History: Other ENT History: No Pertinent History Cardiac History: No Pertinent History Respiratory History: No Pertinent History Endocrine Medical History: Diabetes Type II Musculoskeletal History: Arthritis GI Medical History: No Pertinent History History: No Pertinent History Psycho-Social History: No Pertinent History Male Reproductive Disorders: No Pertinent History Other Medical History: hx of head injury 8 yrs ago. congenital neck deformity. - Past Surgical History Past Surgical History: Yes Neuro Surgical History: Other Cardiac: No Pertinent History Respiratory: No Pertinent History Gastrointestinal: No Pertinent History Genitourinary: Kidney Surgery Musculoskeletal: Joint Replacement Male Surgical History: No Pertinent History Other Surgical History: unknown - Social History Smoking Status: Never smoker Exposure to second hand smoke: No Drug Use: none Patient Lives Alone: Yes - Nursing Vital Signs Nursing Vital Signs: Initial Vital Signs Temperature 98.2 F 11/28/21 10:53 Pulse Rate 109 H 11/28/21 10:53 Respiratory Rate 18 11/28/21 10:53 Blood Pressure 120/69 11/28/21 10:53 O2 Sat by Pulse Oximetry 100 11/28/21 10:53 Pain Scale Pain Intensity 0 - Physical Exam General Appearance: no apparent distress, alert Eye Exam: PERRL/EOMI, eyes nml inspection Ears, Nose, Throat Exam: normal ENT inspection, TMs normal, pharynx normal, moist mucous membranes Neck Exam: normal inspection, non-tender, supple, full range of motion Respiratory Exam: normal breath sounds, lungs clear, airway intact, No respiratory distress Cardiovascular Exam: regular rate/rhythm, normal heart sounds, normal peripheral pulses Gastrointestinal/Abdomen Exam: soft, normal bowel sounds, No tenderness, No mass Back Exam: normal inspection, normal range of motion, No CVA tenderness, No vertebral tenderness Extremity Exam: normal inspection, normal range of motion, pelvis stable Neurologic Exam: alert, oriented x 3, cooperative, normal mood/affect, nml cerebellar function, nml station & gait, sensation nml, No motor deficits Skin Exam: normal color, warm, dry, No rash Lymphatic Exam: No adenopathy SpO2 Interpretation: normal SpO2: 100 O2 Delivery: Room Air - Course Nursing assessment & vital signs reviewed: Yes EKG Interpreted by Me: RATE ([id number]), Sinus Tach, NORMAL AXIS, NORMAL INTERVALS Ordered Tests: Active Orders 24 hr Category Date Time Status Aluminum Welder STAT Care 11/28/21 10:48 Active EKG-ER Only STAT Care 11/28/21 10:48 Active IV Insertion STAT Care 11/28/21 10:48 Active Pulse Oximetry (ED) STAT Care 11/28/21 10:48 Active CHEST 1 VIEW (PORTABLE) Stat Exams 11/28/21 10:48 Taken CBC W DIFF Stat Lab 11/28/21 11:04 Completed CMP Stat Lab 11/28/21 11:04 Received TROPONIN Q3H Lab 11/28/21 11:04 Received TROPONIN Q3H Lab 11/28/21 14:00 Ordered TROPONIN Q3H Lab 11/28/21 17:00 Ordered TROPONIN Q3H Lab 11/28/21 20:00 Ordered TROPONIN Q3H Lab 11/28/21 23:00 Ordered UA W/RFX UR CULTURE Stat Lab 11/28/21 10:48 Ordered Medication Summary Generic Name Dose Route Start Last Admin Trade Name Freq PRN Reason Stop Dose Admin Sodium Chloride 1,000 mls @ 100 mls/hr 11/28/21 11:00 11/28/21 11:29 Sodium Chloride 0.9% 1000 Ml IV 12/28/21 10:59 100 mls/hr .Q10H RICARDO Administration Lab/Rad Data: Laboratory Result Diagrams 11/28/21 11:04 Laboratory Results 11/28/21 Range/Units 11:04 WBC 8.5 (4.0-10.5) K/mm3 RBC 3.04 L (4.1-5.6) M/mm3 Hgb 6.7 L* (12.5-18.0) gm/dl Hct 23.8 L (42-50) % MCV 78.3 (78-100) fl MCH 22.0 L (26-32) pg MCHC 28.2 L (32-36) g/dl RDW 17.9 H (11.5-14.0) % Plt Count 704 H (150-450) K/mm3 MPV 9.5 (7.5-11.0) fl Gran % 80.9 H (36.0-66.0) % Eos # (Auto) 0.05 (0-0.5) Absolute Lymphs (auto) 0.91 L (1.0-4.6) Absolute Monos (auto) 0.54 (0.0-1.3) Lymphocytes % 10.7 L (24.0-44.0) % Monocytes % 6.3 (0.0-12.0) % Eosinophils % 0.6 (0.00-5.0) % Basophils % 1.5 (0.0-0.4) % Absolute Granulocytes 6.88 (1.4-6.9) Basophils # 0.13 (0-0.4) - Progress Progress: improved Progress Note: Hemoglobin 6.7. Patient is experiencing symptomatic anemia. He is pale and weak. Patient has not been compliant with medication regimen. Patient has not taken his iron because it makes him constipated. Patient states that his constipation worsens his hemorrhoids. Patient will require admission. Type and screen pending. Case discussed with Dr. Tamez who accepts admission to observation. Covid test pending. Plan of care discussed with patient. He agrees to admission [facility] for further evaluation and treatment. Portions of this note were created with voice recognition technology. There may be grammatical, spelling, punctuation or sound alike errors 11/28/21 11:[address] Waqar Will see patient in: hospital (observation) Counseled pt/family regarding: lab results, diagnosis, rad results - Departure Departure Disposition: Observation Clinical Impression: Noncompliance with medication regimen, Generalized weakness, Symptomatic anemia Condition: Stable Critical Care Time: No Referrals: CAROLYN TAMEZ MD [Primary Care Provider] - Follow up/PCP as directed
[2021-11-28 11:29] LABS: Absolute Neutrophil Ct (ANC) 6.88 (1.4-6.9); Basophil (Absolute #) 0.13 (0-0.4); Eosinophil % 0.6 % (0.00-5.0); Eosinophil (Absolute #) 0.05 (0-0.5); Hematocrit 23.8 % (42-50); Lymphocyte (Absolute #) 0.91 (1.0-4.6); Lymphocytes % 10.7 % (24.0-44.0); Mean Cell Volume 78.3 fl (78-100); Mean Corpuscular Hgb Concent. 28.2 g/dl (32-36); Mean Platelet Volume 9.5 fl (7.5-11.0); Monocyte (Absolute #) 0.54 (0.0-1.3); Monocytes % 6.3 % (0.0-12.0); Neutrophil % 80.9 % (36.0-66.0); Platelet Count 704 K/mm3 (150-450); Red Blood Count 3.04 M/mm3 (4.1-5.6); Red Cell Distribution Width 17.9 % (11.5-14.0); White Blood Count 8.5 K/mm3 (4.0-10.5)
[2021-11-28 11:31] LABS: Hemoglobin 6.7 gm/dl (12.5-18.0)
[2021-11-28 11:40] LABS: ALBUMIN 4.3 g/dL (3.5-5.0); ANION GAP 17.7 MEQ/L (5-15); BILIRUBIN,TOTAL 0.7 mg/dL (0.2-1.3); Creatinine 1 1.63 mg/dL (0.66-1.25); EST GLOMERULAR FILTRATION RATE 46.6 ML/MIN; Potassium 4.4 mmol/L (3.5-5.1)
[2021-11-28 11:45] LABS: Slide Review 1 YES
--- NOTE | 2021-11-28 11:49 | XRAY ---
Indication: Pneumonia. Comparison: September 05, 2021. Portable chest again demonstrates cardiomegaly with diminished bibasilar effusions/atelectasis. Stable tiny right apical calcified granulomas, osteopenia, and scoliosis. No new cardiopulmonary abnormalities.
[2021-11-28 12:35] LABS: INFLUENZA A NEGATIVE (NEGATIVE); INFLUENZA B NEGATIVE (NEGATIVE); RESPIRATORY SYNCTIAL VIRUS NEGATIVE (Negative); SARS-CoV-2 Xpert Express NEGATIVE (NEGATIVE)
[2021-11-28] MEDS ORDERED: Zofran 4 MG/2 ML VIAL IV PRN (13:12)
[2021-11-28] MEDS ORDERED: MORPHINE SULFATE 2 MG INJ IV PRN (13:12)
[2021-11-28 14:52] LABS: CROSS MATCH (PRBC) COMPATIBLE (COMPATIBLE)
[2021-11-28 14:53] LABS: ABO TYPING AB; Antibody Screen NEGATIVE (NEGATIVE); RH TYPING POSITIVE
[2021-11-28 16:53] LABS: Appearance CLEAR (CLEAR); Bilirubin NEGATIVE (NEGATIVE); Blood NEGATIVE Ery/ul (0-5); Glucose >=500 mg/dL (NEGATIVE); Ketones NEGATIVE (NEGATIVE); Leukocyte Esterase NEGATIVE (NEGATIVE); Nitrite NEGATIVE (NEGATIVE); Protein,Urine Dip 30 (Negative); Urobilinogen NEGATIVE mg/dL (0-1)
[2021-11-28] MEDS: Toprol-Xl 25MG Tablets PO SCH (18:11)
[2021-11-28] MEDS: Zestril 5 MG PO SCH (18:11)
[2021-11-28] MEDS: FEOSOL 325 MG PO SCH (18:12)
--- NOTE | 2021-11-28 19:02 | PCM.HP ---
History of Present Illness - Chief Complaint Chief Complaint: generalised weaknes for 2-3 days History of Present Illness: is a 56 year old male presents to our ED for evaluation of generalized weakness noncompliant with medication regimen. Patient appears pale on observation. Patient states he has a history of anemia requiring transfusion. No reported nausea or vomiting. No diarrhea. No rash. No fever. Symptoms are constant. Symptoms are moderate in intensity. No specific worsening improving factors. Patient voices no other complaints concerns at this time. . - Review of Systems Constitutional: Lethargy, Malaise, Weakness, No Fever, No Chills Eyes: No Symptoms Ears, Nose, & Throat: No Symptoms Respiratory: No Cough, No Short Of Breath Cardiac: No Chest Pain, No Edema, No Syncope Abdominal/Gastrointestinal: No Abdominal Pain, No Nausea, No Vomiting, No Diarrhea Genitourinary Symptoms: No Dysuria Musculoskeletal: No Back Pain, No Neck Pain Skin: No Rash Neurological: No Dizziness, No Focal Weakness, No Sensory Changes Psychological: No Symptoms Endocrine: No Symptoms Hematologic/Lymphatic: No Symptoms Immunological/Allergic: No Symptoms Medications & Allergies Home Medications: Home Medication List Apixaban [Eliquis 2.5 mg Tablet] 2.5 mg PO BID 30 Days tablet 09/08/21 [Rx Confirmed 11/28/21] Docusate Sodium 50 mg/5 ml [COLACE Liquid 50 MG/5 ML] 100 mg PO BID ml 09/08/21 [Rx Confirmed 11/28/21] Ferrous Sulfate 325 mg [Feosol 325 mg] 325 mg PO DAILY tablet 09/08/21 [Rx Confirmed 11/28/21] Glimepiride 2 mg [Amaryl 2 MG] 1 mg PO BREAKFAST #30 tablet 09/08/21 [Rx Confirmed 11/28/21] Spironolactone 25 mg PO BID #30 tablet 09/08/21 [Rx Confirmed 11/28/21] lisinopriL [Zestril] 2.5 mg PO DAILY #30 tablet 09/08/21 [Rx Confirmed 11/28/21] Atorvastatin Calcium 1 tab PO DAILY 11/28/21 [History Confirmed 11/28/21] Metoprolol Succinate 25 mg PO DAILY 11/28/21 [History Confirmed 11/28/21] Allergies/Adverse Reactions: Allergies Allergy/AdvReac Type Severity Reaction Status Date / Time Penicillins Allergy Verified 11/28/21 10:49 - Past Medical History Past Medical History: Yes Neurological History: Other ENT History: No Pertinent History Cardiac History: No Pertinent History Respiratory History: No Pertinent History Endocrine Medical History: Diabetes Type II Musculoskelatal History: Arthritis GI Medical History: No Pertinent History History: No Pertinent History Pyscho-Social History: No Pertinent History Male Reproductive Disorders: No Pertinent History Comment: hx of head injury 8 yrs ago. congenital neck deformity. - Past Surgical History Past Surgical History: Yes Neuro Surgical History: Other Cardiac History: No Pertinent History Respiratory Surgery: No Pertinent History GI Surgical History: No Pertinent History Genitourinary Surgical Hx: Kidney Surgery Musculskeletal Surgical Hx: Joint Replacement Male Surgical History: No Pertinent History Other Surgical History: unknown - Social History Smoking Status: Never smoker Exposure to second hand smoke: No Alcohol: Occasionally Drug Use: none - Physical Exam Vital Signs: Vital Signs - 24 hr Temp Pulse Resp BP Pulse Ox 11/28/21 16:15 98 11/28/21 16:00 98.1 F 112 H 18 123/70 99 11/28/21 13:13 98.6 F 111 H 20 118/67 100 11/28/21 13:12 100 11/28/21 12:19 110 H 16 99 11/28/21 11:39 100 11/28/21 11:31 108 H 16 113/68 99 11/28/21 10:57 100 11/28/21 10:53 98.2 F 109 H 18 120/69 100 General Appearance: no apparent distress, alert Neurologic Exam: alert, oriented x 3, cooperative, normal mood/affect, nml cerebellar function, nml station & gait, sensation nml, No motor deficits Eye Exam: PERRL/EOMI, eyes nml inspection Ears, Nose, Throat Exam: normal ENT inspection, TMs normal, pharynx normal, moist mucous membranes Neck Exam: normal inspection, non-tender, supple, full range of motion Respiratory Exam: normal breath sounds, lungs clear, No respiratory distress Cardiovascular Exam: regular rate/rhythm, normal heart sounds, normal peripheral pulses Gastrointestinal/Abdomen Exam: soft, normal bowel sounds, No tenderness, No mass Back Exam: normal inspection, normal range of motion, No CVA tenderness, No vertebral tenderness Extremity Exam: normal inspection, normal range of motion, pelvis stable Skin Exam: normal color, warm, dry, No rash Lymphatic Exam: No adenopathy Results - Labs Lab/Micro Results: Lab Results-Last 24 Hours 11/28/21 11/28/21 11/28/21 Range/Units 02:08 11:04 11:04 WBC 8.5 (4.0-10.5) K/mm3 RBC 3.04 L (4.1-5.6) M/mm3 Hgb 6.7 L* (12.5-18.0) gm/dl Hct 23.8 L (42-50) % MCV 78.3 (78-100) fl MCH 22.0 L (26-32) pg MCHC 28.2 L (32-36) g/dl RDW 17.9 H (11.5-14.0) % Plt Count 704 H (150-450) K/mm3 MPV 9.5 (7.5-11.0) fl Gran % 80.9 H (36.0-66.0) % Eos # (Auto) 0.05 (0-0.5) Absolute Lymphs (auto) 0.91 L (1.0-4.6) Absolute Monos (auto) 0.54 (0.0-1.3) Lymphocytes % 10.7 L (24.0-44.0) % Monocytes % 6.3 (0.0-12.0) % Eosinophils % 0.6 (0.00-5.0) % Basophils % 1.5 (0.0-0.4) % Absolute Granulocytes 6.88 (1.4-6.9) Basophils # 0.13 (0-0.4) Sodium 134 L (137-145) mmol/L Potassium 4.4 (3.5-5.1) mmol/L Chloride 99 (98-107) mmol/L Carbon Dioxide 22 (22-30) mmol/L Anion Gap 17.7 H (5-15) MEQ/L BUN 13 (9-20) mg/dL Creatinine 1.63 H (0.66-1.25) mg/dL Estimated GFR 46.6 ML/MIN Glucose 311 H (74-106) mg/dL Calcium 9.0 (8.4-10.2) mg/dL Total Bilirubin 0.70 (0.2-1.3) mg/dL AST 17 (17-59) U/L ALT 12 (0-50) U/L Alkaline Phosphatase 108 (38-126) U/L Troponin I 0.034 (0.000-0.034) ng/mL Serum Total Protein 7.0 (6.3-8.2) g/dL Albumin 4.3 (3.5-5.0) g/dL Urine Color (YELLOW) Urine Appearance (CLEAR) Urine pH (5-6) Ur Specific Rose (1.005-1.025) Urine Protein (Negative) Urine Ketones (NEGATIVE) Urine Blood (0-5) Sam/ul Urine Nitrite (NEGATIVE) Urine Bilirubin (NEGATIVE) Urine Urobilinogen (0-1) mg/dL Ur Leukocyte Esterase (NEGATIVE) Urine WBC (Auto) (0-5) /HPF Urine RBC (Auto) (0-2) /HPF U Epithel Cells (Auto) (FEW) /HPF Urine Bacteria (Auto) (NEGATIVE) /HPF Urine Culture Reflexed (NO) Urine Glucose (NEGATIVE) mg/dL Influenza Type A Ag (NEGATIVE) Influenza Type B Ag (NEGATIVE) RSV (PCR) (Negative) SARS-CoV-2 (PCR) (NEGATIVE) Slides for Path Review YES ABO Group Rh Factor Antibody Screen (NEGATIVE) Crossmatch (COMPATIBLE) 11/28/21 11/28/21 11/28/21 Range/Units 11:04 11:10 11:47 WBC (4.0-10.5) K/mm3 RBC (4.1-5.6) M/mm3 Hgb (12.5-18.0) gm/dl Hct (42-50) % MCV (78-100) fl MCH (26-32) pg MCHC (32-36) g/dl RDW (11.5-14.0) % Plt Count (150-450) K/mm3 MPV (7.5-11.0) fl Gran % (36.0-66.0) % Eos # (Auto) (0-0.5) Absolute Lymphs (auto) (1.0-4.6) Absolute Monos (auto) (0.0-1.3) Lymphocytes % (24.0-44.0) % Monocytes % (0.0-12.0) % Eosinophils % (0.00-5.0) % Basophils % (0.0-0.4) % Absolute Granulocytes (1.4-6.9) Basophils # (0-0.4) Sodium (137-145) mmol/L Potassium (3.5-5.1) mmol/L Chloride (98-107) mmol/L Carbon Dioxide (22-30) mmol/L Anion Gap (5-15) MEQ/L BUN (9-20) mg/dL Creatinine (0.66-1.25) mg/dL Estimated GFR ML/MIN Glucose (74-106) mg/dL Calcium (8.4-10.2) mg/dL Total Bilirubin (0.2-1.3) mg/dL AST (17-59) U/L ALT (0-50) U/L Alkaline Phosphatase (38-126) U/L Troponin I 0.042 H* (0.000-0.034) ng/mL Serum Total Protein (6.3-8.2) g/dL Albumin (3.5-5.0) g/dL Urine Color (YELLOW) Urine Appearance (CLEAR) Urine pH (5-6) Ur Specific Rose (1.005-1.025) Urine Protein (Negative) Urine Ketones (NEGATIVE) Urine Blood (0-5) Sam/ul Urine Nitrite (NEGATIVE) Urine Bilirubin (NEGATIVE) Urine Urobilinogen (0-1) mg/dL Ur Leukocyte Esterase (NEGATIVE) Urine WBC (Auto) (0-5) /HPF Urine RBC (Auto) (0-2) /HPF U Epithel Cells (Auto) (FEW) /HPF Urine Bacteria (Auto) (NEGATIVE) /HPF Urine Culture Reflexed (NO) Urine Glucose (NEGATIVE) mg/dL Influenza Type A Ag NEGATIVE (NEGATIVE) Influenza Type B Ag NEGATIVE (NEGATIVE) RSV (PCR) NEGATIVE (Negative) SARS-CoV-2 (PCR) NEGATIVE (NEGATIVE) Slides for Path Review ABO Group Rh Factor Antibody Screen (NEGATIVE) Crossmatch COMPATIBLE (COMPATIBLE) 11/28/21 11/28/21 Range/Units 14:27 16:49 WBC (4.0-10.5) K/mm3 RBC (4.1-5.6) M/mm3 Hgb (12.5-18.0) gm/dl Hct (42-50) % MCV (78-100) fl MCH (26-32) pg MCHC (32-36) g/dl RDW (11.5-14.0) % Plt Count (150-450) K/mm3 MPV (7.5-11.0) fl Gran % (36.0-66.0) % Eos # (Auto) (0-0.5) Absolute Lymphs (auto) (1.0-4.6) Absolute Monos (auto) (0.0-1.3) Lymphocytes % (24.0-44.0) % Monocytes % (0.0-12.0) % Eosinophils % (0.00-5.0) % Basophils % (0.0-0.4) % Absolute Granulocytes (1.4-6.9) Basophils # (0-0.4) Sodium (137-145) mmol/L Potassium (3.5-5.1) mmol/L Chloride (98-107) mmol/L Carbon Dioxide (22-30) mmol/L Anion Gap (5-15) MEQ/L BUN (9-20) mg/dL Creatinine (0.66-1.25) mg/dL Estimated GFR ML/MIN Glucose (74-106) mg/dL Calcium (8.4-10.2) mg/dL Total Bilirubin (0.2-1.3) mg/dL AST (17-59) U/L ALT (0-50) U/L Alkaline Phosphatase (38-126) U/L Troponin I (0.000-0.034) ng/mL Serum Total Protein (6.3-8.2) g/dL Albumin (3.5-5.0) g/dL Urine Color STRAW (YELLOW) Urine Appearance CLEAR (CLEAR) Urine pH 5.0 (5-6) Ur Specific Rose 1.010 (1.005-1.025) Urine Protein 30 (Negative) Urine Ketones NEGATIVE (NEGATIVE) Urine Blood NEGATIVE (0-5) Sam/ul Urine Nitrite NEGATIVE (NEGATIVE) Urine Bilirubin NEGATIVE (NEGATIVE) Urine Urobilinogen NEGATIVE (0-1) mg/dL Ur Leukocyte Esterase NEGATIVE (NEGATIVE) Urine WBC (Auto) NONE (0-5) /HPF Urine RBC (Auto) NONE (0-2) /HPF U Epithel Cells (Auto) NONE (FEW) /HPF Urine Bacteria (Auto) NONE (NEGATIVE) /HPF Urine Culture Reflexed NO (NO) Urine Glucose >=500 (NEGATIVE) mg/dL Influenza Type A Ag (NEGATIVE) Influenza Type B Ag (NEGATIVE) RSV (PCR) (Negative) SARS-CoV-2 (PCR) (NEGATIVE) Slides for Path Review ABO Group AB Rh Factor POSITIVE Antibody Screen NEGATIVE (NEGATIVE) Crossmatch COMPATIBLE (COMPATIBLE) - Radiology Impressions Radiology Exams & Impressions: Radiology Procedures Category Date Time Status CHEST 1 VIEW (PORTABLE) Stat Exams 11/28/21 10:48 Completed Assessment/Plan (1) Symptomatic anemia Current Visit: Yes Status: Acute Assessment & Plan: Chief Complaint Diagnosis Symptomatic anemia Allergies Allergy/AdvReac Type Severity Reaction Status Date / Time Penicillins Allergy Verified 11/28/21 10:49 Vital Signs (Last 24 hours) Temp Pulse Resp BP Pulse Ox 11/28/21 16:15 98 11/28/21 16:00 98.1 F 112 H 18 123/70 99 11/28/21 13:13 98.6 F 111 H 20 118/67 100 11/28/21 13:12 100 11/28/21 12:19 110 H 16 99 11/28/21 11:39 100 11/28/21 11:31 108 H 16 113/68 99 11/28/21 10:57 100 11/28/21 10:53 98.2 F 109 H 18 120/69 100 Home Medications Medication Instructions Recorded Confirmed Last Taken Type Atorvastatin Calcium 1 tab PO DAILY 11/28/21 11/28/21 11/21/21 History Metoprolol Succinate 25 mg PO DAILY 11/28/21 11/28/21 11/21/21 History Current Medications Generic Name Dose Route Start Last Admin Trade Name Albaro PRN Reason Stop Dose Admin Apixaban 2.5 mg 11/28/21 22:00 Apixaban 2.5 Mg Tablet PO 12/28/21 21:59 BID [facility] Docusate Sodium 100 mg 11/28/21 22:00 Docusate Sodium 50 Mg/5 Ml Liquid PO 12/28/21 21:59 BID [facility] Ferrous Sulfate 325 mg 11/28/21 17:00 11/28/21 18:12 Ferrous Sulfate 325 Mg Tablet PO 12/28/21 16:59 325 mg DAILY RICARDO Administration Glimepiride 1 mg 11/29/21 08:00 Glimepiride 2 Mg Tablet PO 12/29/21 07:59 BREAKFAST RICARDO Sodium Chloride 1,000 mls @ 100 mls/hr 11/28/21 13:12 Sodium Chloride 0.9% 1000 Ml IV 12/28/21 13:11 .Q10H RICARDO Insulin Human Lispro 0 unit 11/28/21 18:43 Insulin Lispro 1 Unit SQ 12/28/21 18:42 UD PRN HYPERGLYCEMIA Lisinopril 2.5 mg 11/28/21 17:00 11/28/21 18:11 Lisinopril 5 Mg Tablet PO 12/28/21 16:59 Not Given DAILY RICARDO Metoprolol Succinate 25 mg 11/28/21 17:00 11/28/21 18:11 Metoprolol Succinate 25 Mg Xl Tab PO 12/28/21 16:59 Not Given DAILY RICARDO Morphine Sulfate 2 mg 11/28/21 13:12 Morphine Sulfate 2 Mg/Ml Inj IV 12/03/21 13:11 Q4H PRN PRN PAIN Ondansetron HCl 4 mg 11/28/21 13:12 Ondansetron Hcl 4 Mg/2 Ml Vial IV 12/28/21 13:11 Q6H PRN PRN NAUSEA/VOMITING Simvastatin 10 mg 11/29/21 10:00 Simvastatin 10 Mg Tablet PO 12/29/21 09:59 DAILY RICARDO Spironolactone 25 mg 11/28/21 22:00 Spironolactone 25 Mg Tablet PO 12/28/21 21:59 BID RICARDO Discontinued Medications Generic Name Dose Route Start Last Admin Trade Name Freq PRN Reason Stop Dose Admin Sodium Chloride 1,000 mls @ 100 mls/hr 11/28/21 11:00 11/28/21 11:29 Sodium Chloride 0.9% 1000 Ml IV 12/28/21 10:59 100 mls/hr .Q10H RICARDO Administration Intake & Output (Last 24 hours) 11/26/21 11/27/21 11/28/21 11/29/21 11:59 11:59 11:59 11:59 Intake Total 240 Balance 240 Weight 55 kg Laboratory Results (Last 24 hours) 11/28/21 11/28/21 11/28/21 16:49 14:27 11:47 WBC RBC Hgb Hct MCV MCH MCHC RDW Plt Count MPV Gran % Eos # (Auto) Absolute Lymphs (auto) Absolute Monos (auto) Lymphocytes % Monocytes % Eosinophils % Basophils % Absolute Granulocytes Basophils # Sodium Potassium Chloride Carbon Dioxide Anion Gap BUN Creatinine Estimated GFR Glucose Calcium Total Bilirubin AST ALT Alkaline Phosphatase Troponin I Serum Total Protein Albumin Urine Color STRAW Urine Appearance CLEAR Urine pH 5.0 Ur Specific Rose 1.010 Urine Protein 30 Urine Ketones NEGATIVE Urine Blood NEGATIVE Urine Nitrite NEGATIVE Urine Bilirubin NEGATIVE Urine Urobilinogen NEGATIVE Ur Leukocyte Esterase NEGATIVE Urine WBC (Auto) NONE Urine RBC (Auto) NONE U Epithel Cells (Auto) NONE Urine Bacteria (Auto) NONE Urine Culture Reflexed NO Urine Glucose >=500 Influenza Type A Ag NEGATIVE Influenza Type B Ag NEGATIVE RSV (PCR) NEGATIVE SARS-CoV-2 (PCR) NEGATIVE Slides for Path Review ABO Group AB Rh Factor POSITIVE Antibody Screen NEGATIVE Crossmatch COMPATIBLE 11/28/21 11/28/21 11/28/21 11:10 11:04 11:04 WBC RBC Hgb Hct MCV MCH MCHC RDW Plt Count MPV Gran % Eos # (Auto) Absolute Lymphs (auto) Absolute Monos (auto) Lymphocytes % Monocytes % Eosinophils % Basophils % Absolute Granulocytes Basophils # Sodium 134 L Potassium 4.4 Chloride 99 Carbon Dioxide 22 Anion Gap 17.7 H BUN 13 Creatinine 1.63 H Estimated GFR 46.6 Glucose 311 H Calcium 9.0 Total Bilirubin 0.70 AST 17 ALT 12 Alkaline Phosphatase 108 Troponin I 0.042 H* Serum Total Protein 7.0 Albumin 4.3 Urine Color Urine Appearance Urine pH Ur Specific Rose Urine Protein Urine Ketones Urine Blood Urine Nitrite Urine Bilirubin Urine Urobilinogen Ur Leukocyte Esterase Urine WBC (Auto) Urine RBC (Auto) U Epithel Cells (Auto) Urine Bacteria (Auto) Urine Culture Reflexed Urine Glucose Influenza Type A Ag Influenza Type B Ag RSV (PCR) SARS-CoV-2 (PCR) Slides for Path Review ABO Group Rh Factor Antibody Screen Crossmatch COMPATIBLE 11/28/21 11/28/21 11:04 02:08 WBC 8.5 RBC 3.04 L Hgb 6.7 L* Hct 23.8 L MCV 78.3 MCH 22.0 L MCHC 28.2 L RDW 17.9 H Plt Count 704 H MPV 9.5 Gran % 80.9 H Eos # (Auto) 0.05 Absolute Lymphs (auto) 0.91 L Absolute Monos (auto) 0.54 Lymphocytes % 10.7 L Monocytes % 6.3 Eosinophils % 0.6 Basophils % 1.5 Absolute Granulocytes 6.88 Basophils # 0.13 Sodium Potassium Chloride Carbon Dioxide Anion Gap BUN Creatinine Estimated GFR Glucose Calcium Total Bilirubin AST ALT Alkaline Phosphatase Troponin I 0.034 Serum Total Protein Albumin Urine Color Urine Appearance Urine pH Ur Specific Rose Urine Protein Urine Ketones Urine Blood Urine Nitrite Urine Bilirubin Urine Urobilinogen Ur Leukocyte Esterase Urine WBC (Auto) Urine RBC (Auto) U Epithel Cells (Auto) Urine Bacteria (Auto) Urine Culture Reflexed Urine Glucose Influenza Type A Ag Influenza Type B Ag RSV (PCR) SARS-CoV-2 (PCR) Slides for Path Review YES ABO Group Rh Factor Antibody Screen Crossmatch Orders (Last 24 hours) Category Date Time Status Bedrest ROUTINE Activity 11/28/21 13:12 Active Still Cleaner STAT Care 11/28/21 10:48 Completed Code Status Order ROUTINE Care 11/28/21 13:12 Completed EKG-ER Only STAT Care 11/28/21 10:48 Completed IV Insertion STAT Care 11/28/21 10:48 Completed IV Insertion-2nd Peripheral STAT Care 11/28/21 11:40 Completed POCT Glucose Check ACHS Care 11/28/21 18:[address] in Observation ROUTINE Care 11/28/21 13:12 Completed Pulse Oximetry (ED) STAT Care 11/28/21 10:48 Completed Consistent Carbohydrate Diet 1800 Calorie Diet 11/28/21 Lunch Active CHEST 1 VIEW (PORTABLE) Stat Exams 11/28/21 10:48 Completed BLOOD COMPONENT REQUEST Stat Lab 11/28/21 14:27 Completed CBC W DIFF Stat Lab 11/28/21 11:04 Completed CMP AM.LAB Lab 11/29/21 04:00 Ordered CMP Stat Lab 11/28/21 11:04 Completed TROPONIN Q3H Lab 11/28/21 02:08 Completed TROPONIN Q3H Lab 11/28/21 11:04 Completed TROPONIN Q3H Lab 11/28/21 18:30 Received TROPONIN Q3H Lab 11/28/21 20:00 Ordered TROPONIN Q3H Lab 11/28/21 23:00 Ordered TYPE AND SCREEN Stat Lab 11/28/21 14:27 Completed UA W/RFX UR CULTURE Stat Lab 11/28/21 16:49 Completed Apixaban [Eliquis 2.5 mg Tablet] Med 11/28/21 22:00 Active 2.5 mg PO BID Docusate Sodium 50 mg/5 ml [COLACE Liquid 50 MG/5 ML Med 11/28/21 22:00 Active ] 100 mg PO BID Ferrous Sulfate 325 mg [Feosol 325 mg] Med 11/28/21 17:00 Active 325 mg PO DAILY Glimepiride 2 mg [Amaryl 2 MG] Med 11/29/21 08:00 Active 1 mg PO BREAKFAST Insulin Lispro [Humalog] Med 11/28/21 18:43 Ordered See Dose Instructions SQ UD PRN Lisinopril 5 mg [Zestril 5 MG] Med 11/28/21 17:00 Active 2.5 mg PO DAILY Metoprolol Succinate 25 mg Xl* [Toprol-Xl 25MG Tablets* Med 11/28/21 17:00 Active ] 25 mg PO DAILY Morphine Sulfate 2 mg Inj Med 11/28/21 13:12 Active 2 mg IV Q4H PRN PRN NaCl 0.9% 1000 ml [Sodium Chloride 0.9% 1000 ML] 1,000 Med 11/28/21 11:00 Discontinued ml IV 100 mls/hr NaCl 0.9% 1000 ml [Sodium Chloride 0.9% 1000 ML] 1,000 Med 11/28/21 13:12 Active ml IV 100 mls/hr Ondansetron HCl 4 mg/2 ml [Zofran 4 MG/2 ML VIAL] Med 11/28/21 13:12 Active 4 mg IV Q6H PRN PRN Simvastatin 10 mg [Zocor 10MG] Med 11/29/21 10:00 Active 10 mg PO DAILY Spironolactone 25 mg [Aldactone 25 MG] Med 11/28/21 22:00 Active 25 mg PO BID Pulse Oximetry CONTINUOUS RT 11/28/21 13:12 Active Transfer Order Routine Transfer 11/28/21 Completed Transfer Order Routine Transfer 11/28/21 Completed Patient Care Notes (Last 24 hours) 11/28/21 18:45 Nursing Note by Radha Zhang RECEIVED ORDER FROM DR TAMEZ FOR ACCU CHECKS ACHS AND MODERATE DOSE SLIDING SCALE. Initialized on 11/28/21 18:45 - END OF NOTE Code(s): D64.9 - ANEMIA, UNSPECIFIED (2) Generalized weakness Current Visit: Yes Status: Acute Code(s): R53.1 - WEAKNESS (3) Noncompliance with medication regimen Current Visit: Yes Status: Acute Code(s): Z91.14 - PATIENT'S OTHER NONCOMPLIANCE WITH MEDICATION REGIMEN (4) Congestive heart failure Current Visit: No Status: Acute Qualifiers: Code(s): I50.9 - HEART FAILURE, UNSPECIFIED
[2021-11-28 22:53] LABS: Hematocrit 34.6 % (42-50)
[2021-11-28 22:56] LABS: Hemoglobin 10.6 gm/dl (12.5-18.0)
[2021-11-28] MEDS: HUMALOG SQ PRN (23:16)
[2021-11-28] MEDS: Sodium Chloride 0.9% 1000 ML 1,000 ML IV SCH (23:17)
[2021-11-28] MEDS: Aldactone 25 MG PO SCH (23:17)
[2021-11-28] MEDS ORDERED: ANUSOL-HC 2.5% CREAM 30 GM TP PRN (23:50)
[2021-11-29 06:42] LABS: ALBUMIN 4.1 g/dL (3.5-5.0); ANION GAP 14.6 MEQ/L (5-15); BILIRUBIN,TOTAL 1.4 mg/dL (0.2-1.3); Calcium 8.8 mg/dL (8.4-10.2); Creatinine 1 1.54 mg/dL (0.66-1.25); EST GLOMERULAR FILTRATION RATE 49.7 ML/MIN; Total Protein 7.1 g/dL (6.3-8.2)
[2021-11-29] MEDS: COLACE Liquid 50 MG/5 ML PO SCH ×3 (07:45→23:05)
[2021-11-29] MEDS: ELIQUIS 2.5 MG TABLET PO SCH ×3 (07:46→23:05)
[2021-11-29] MEDS: Amaryl 2 MG PO SCH (07:55)
[2021-11-29] MEDS: Sodium Chloride 0.9% 1000 ML 1,000 ML IV SCH ×2 (08:03→10:44)
[2021-11-29] MEDS: Zocor 10MG PO SCH (08:27)
[2021-11-29] MEDS: Toprol-Xl 25MG Tablets PO SCH (08:27)
[2021-11-29] MEDS: Aldactone 25 MG PO SCH ×2 (08:27→23:00)
[2021-11-29] MEDS: Zestril 5 MG PO SCH (08:27)
[2021-11-29] MEDS: FEOSOL 325 MG PO SCH (08:27)
[2021-11-29] MEDS ORDERED: NON-FORMULARY ITEM (Lisinopril [Zestril] 2.5 MG Tablet) PO SCH (10:00)
[2021-11-29] MEDS ORDERED: NON-FORMULARY ITEM (Atorvastatin Calcium [Atorvastatin Calcium] 10 MG Tablet) PO SCH (10:00)
[2021-11-29] MEDS ORDERED: NON-FORMULARY ITEM (Metoprolol Succinate 25 MG Tab.Er.24h) PO SCH (10:00)
--- NOTE | 2021-11-29 18:27 | PCM.NOTE ---
Date and Time: 11/29/211825 Subjective Assessment: doing better - Review of Systems Constitutional: No Fever, No Chills Eyes: No Symptoms Ears, Nose, & Throat: No Symptoms Respiratory: No Cough, No Short Of Breath Cardiac: No Chest Pain, No Edema, No Syncope Abdominal/Gastrointestinal: No Abdominal Pain, No Nausea, No Vomiting, No Diarrhea Genitourinary Symptoms: No Dysuria Musculoskeletal: No Back Pain, No Neck Pain Skin: No Rash Neurological: No Dizziness, No Focal Weakness, No Sensory Changes Psychological: No Symptoms Endocrine: No Symptoms Hematologic/Lymphatic: No Symptoms Immunological/Allergic: No Symptoms Objective Exam General Appearance: no apparent distress, alert Neurologic Exam: alert, oriented x 3, cooperative, normal mood/affect, nml cerebellar function, sensation nml, No motor deficits Skin Exam: normal color, warm, dry Eye Exam: PERRL, EOMI, eyes nml inspection Ears, Nose, Throat Exam: normal ENT inspection, pharynx normal, moist mucous membranes Neck Exam: normal inspection, non-tender, supple, full range of motion Respiratory Exam: normal breath sounds, lungs clear, No respiratory distress Cardiovascular Exam: regular rate/rhythm, normal heart sounds Gastrointestinal/Abdomen Exam: soft, No tenderness, No mass Extremity Exam: normal inspection, normal range of motion Back Exam: normal inspection, normal range of motion, No CVA tenderness, No vertebral tenderness Male Genitalia Exam: deferred Rectal Exam: deferred OBJECTIVE DATA Vital Signs: Vital Signs - 24 hr Temp Pulse Resp BP Pulse Ox 11/29/21 16:00 97.5 F 114 H 23 138/87 97 11/29/21 12:00 97.7 F 108 H 16 116/76 94 L 11/29/21 07:42 98.4 F 106 H 27 H 111/67 94 L 11/29/21 04:00 97.7 F 109 H 20 122/75 96 11/29/21 00:00 98.6 F 109 H 24 122/74 99 11/28/21 20:00 97.9 F 109 H 24 113/71 97 Pain Assessment - Last Documented Pain Intensity 0 Intake and Output: Intake & Output 11/27/21 11/28/21 11/29/21 11/30/21 11:59 11:59 11:59 11:59 Intake Total 2635 480 Output Total 400 Balance 2235 480 Weight 55 kg Lab Results: Lab Results-Last 24 Hours 11/28/21 11/28/21 11/28/21 Range/Units 18:30 20:30 20:52 Hgb (12.5-18.0) gm/dl Hct (42-50) % Sodium (137-145) mmol/L Potassium (3.5-5.1) mmol/L Chloride (98-107) mmol/L Carbon Dioxide (22-30) mmol/L Anion Gap (5-15) MEQ/L BUN (9-20) mg/dL Creatinine (0.66-1.25) mg/dL Estimated GFR ML/MIN Glucose (74-106) mg/dL POC Glucometer 262 H (74 to 106) mg/dL Calcium (8.4-10.2) mg/dL Total Bilirubin (0.2-1.3) mg/dL AST (17-59) U/L ALT (0-50) U/L Alkaline Phosphatase (38-126) U/L Troponin I 0.035 H 0.035 H (0.000-0.034) ng/mL Serum Total Protein (6.3-8.2) g/dL Albumin (3.5-5.0) g/dL 11/28/21 11/28/21 11/29/21 Range/Units 22:45 22:45 05:25 Hgb 10.6 L D (12.5-18.0) gm/dl Hct 34.6 L (42-50) % Sodium 138 (137-145) mmol/L Potassium 4.0 (3.5-5.1) mmol/L Chloride 105 (98-107) mmol/L Carbon Dioxide 23 (22-30) mmol/L Anion Gap 14.6 (5-15) MEQ/L BUN 12 (9-20) mg/dL Creatinine 1.54 H (0.66-1.25) mg/dL Estimated GFR 49.7 ML/MIN Glucose 155 H (74-106) mg/dL POC Glucometer (74 to 106) mg/dL Calcium 8.8 (8.4-10.2) mg/dL Total Bilirubin 1.40 H (0.2-1.3) mg/dL AST 25 (17-59) U/L ALT 10 (0-50) U/L Alkaline Phosphatase 116 (38-126) U/L Troponin I 0.033 (0.000-0.034) ng/mL Serum Total Protein 7.1 (6.3-8.2) g/dL Albumin 4.1 (3.5-5.0) g/dL 11/29/21 11/29/21 11/29/21 Range/Units 06:47 11:39 16:37 Hgb (12.5-18.0) gm/dl Hct (42-50) % Sodium (137-145) mmol/L Potassium (3.5-5.1) mmol/L Chloride (98-107) mmol/L Carbon Dioxide (22-30) mmol/L Anion Gap (5-15) MEQ/L BUN (9-20) mg/dL Creatinine (0.66-1.25) mg/dL Estimated GFR ML/MIN Glucose (74-106) mg/dL POC Glucometer 191 H 248 H 211 H (74 to 106) mg/dL Calcium (8.4-10.2) mg/dL Total Bilirubin (0.2-1.3) mg/dL AST (17-59) U/L ALT (0-50) U/L Alkaline Phosphatase (38-126) U/L Troponin I (0.000-0.034) ng/mL Serum Total Protein (6.3-8.2) g/dL Albumin (3.5-5.0) g/dL Radiology Exams: Radiology Procedures Category Date Time Status CHEST 1 VIEW (PORTABLE) Stat Exams 11/28/21 10:48 Completed Multi-Disciplinary Progress Notes: Multi-Disciplinary Progress Notes 11/29/21 13:56 Case Management Note by Tonia Ortez [facility] HAS ACCEPTED PATIENT. THEY WILL NEED NOTIFIED AT [phone] AT TIME OF DC. THEY WILL ALSO NEED FAXED THE DC INSTRUCTIONS, DC MED LEST AND DC SUMMARY (IF AVAILABLE) TO [phone] Initialized on 11/29/21 13:56 - END OF NOTE 11/29/21 11:32 Case Management Note by Tonia Ortez S[facility]W [facility]- THEY REPORTS PATIENT HAS LOW INCOME MEDICARE AND MOST RX ARE $2-3 WITH HIS ELIQUIS BEING ONLY $10. PATIENT STATES HE GETS SS CHECKS Initialized on 11/29/21 11:32 - END OF NOTE 11/29/21 11:25 Case Management Note by Tonia Ortez REFERRAL FAXED TO [facility] REFERRAL EMAILED TO [facility] Initialized on 11/29/21 11:25 - END OF NOTE 11/29/21 11:02 Case Management Note by Tonia Ortez PATIENT REPORTS HE WAS UNABLE TO GET HIS GLUCOMETER FILLED FROM LAST VISIT D/T IT BEING TOO EXPENSIVE. CALLED PHARMACY- THE BRAND WAS NOT COVERED. CALLED AND S/W LAKSHMI AT [place] OFFICE- SHE HAS SENT IT IN AGAIN WITH GIVEN FROM [facility] FOR COVERAGE. [facility] STATED IF THERE WAS ANY ISSUES WITH ORDER THEY WOULD CONTACT THE OFFICE TO GET IT CORRECTED Initialized on 11/29/21 11:02 - END OF NOTE Assessment/Plan (1) Symptomatic anemia Current Visit: Yes Status: Acute Code(s): D64.9 - ANEMIA, UNSPECIFIED (2) Generalized weakness Current Visit: Yes Status: Acute Code(s): R53.1 - WEAKNESS (3) Noncompliance with medication regimen Current Visit: Yes Status: Acute Code(s): Z91.14 - PATIENT'S OTHER NONCOMPLIANCE WITH MEDICATION REGIMEN (4) Congestive heart failure Current Visit: No Status: Acute Qualifiers: Heart failure type: combined systolic and diastolic Heart failure chronicity: chronic Qualified Code(s): I50.42 - Chronic combined systolic (congestive) and diastolic (congestive) heart failure Code(s): I50.9 - HEART FAILURE, UNSPECIFIED
[2021-11-29] MEDS: HUMALOG SQ PRN (23:01)
[2021-11-30 07:52] LABS: Hematocrit 35.6 % (42-50); Hemoglobin 10.7 gm/dl (12.5-18.0); Mean Cell Volume 81.8 fl (78-100); Mean Corpuscular Hemoglobin 24.6 pg (26-32); Mean Corpuscular Hgb Concent. 30.1 g/dl (32-36); Mean Platelet Volume 9.5 fl (7.5-11.0); Platelet Count 658 K/mm3 (150-450); Red Blood Count 4.35 M/mm3 (4.1-5.6); Red Cell Distribution Width 18.6 % (11.5-14.0); White Blood Count 12.8 K/mm3 (4.0-10.5)
--- NOTE | 2021-11-30 08:04 | PCM.NOTE ---
Date and Time: 11/30/21802 Subjective Assessment: doing ok - Review of Systems Constitutional: No Fever, No Chills Eyes: No Symptoms Ears, Nose, & Throat: No Symptoms Respiratory: No Cough, No Short Of Breath Cardiac: No Chest Pain, No Edema, No Syncope Abdominal/Gastrointestinal: No Abdominal Pain, No Nausea, No Vomiting, No Diarrhea Genitourinary Symptoms: No Dysuria Musculoskeletal: No Back Pain, No Neck Pain Skin: No Rash Neurological: No Dizziness, No Focal Weakness, No Sensory Changes Psychological: No Symptoms Endocrine: No Symptoms Hematologic/Lymphatic: No Symptoms Immunological/Allergic: No Symptoms Objective Exam General Appearance: no apparent distress, alert Neurologic Exam: alert, oriented x 3, cooperative, normal mood/affect, nml cerebellar function, sensation nml, No motor deficits Skin Exam: normal color, warm, dry Eye Exam: PERRL, EOMI, eyes nml inspection Ears, Nose, Throat Exam: normal ENT inspection, pharynx normal, moist mucous membranes Neck Exam: normal inspection, non-tender, supple, full range of motion Respiratory Exam: normal breath sounds, lungs clear, No respiratory distress Cardiovascular Exam: regular rate/rhythm, normal heart sounds Gastrointestinal/Abdomen Exam: soft, No tenderness, No mass Extremity Exam: normal inspection, normal range of motion Back Exam: normal inspection, normal range of motion, No CVA tenderness, No vertebral tenderness Male Genitalia Exam: deferred Rectal Exam: deferred OBJECTIVE DATA Vital Signs: Vital Signs - 24 hr Temp Pulse Resp BP Pulse Ox 11/30/21 07:22 96.7 F 118 H 17 135/86 100 11/30/21 04:00 98.6 F 98 H 19 104/61 98 11/29/21 23:48 97.2 F 117 H 18 121/80 96 11/29/21 19:50 96.3 F 117 H 22 131/91 99 11/29/21 16:00 97.5 F 114 H 23 138/87 97 11/29/21 12:00 97.7 F 108 H 16 116/76 94 L Pain Assessment - Last Documented Pain Intensity 0 Intake and Output: Intake & Output 11/27/21 11/28/21 11/29/21 11/30/21 11:59 11:59 11:59 11:59 Intake Total 2635 1080 Output Total 400 Balance 2235 1080 Weight 55 kg Lab Results: Lab Results-Last 24 Hours 11/28/21 11/29/21 11/29/21 Range/Units 20:52 06:47 11:39 WBC (4.0-10.5) K/mm3 RBC (4.1-5.6) M/mm3 Hgb (12.5-18.0) gm/dl Hct (42-50) % MCV (78-100) fl MCH (26-32) pg MCHC (32-36) g/dl RDW (11.5-14.0) % Plt Count (150-450) K/mm3 MPV (7.5-11.0) fl POC Glucometer 262 H 191 H 248 H (74 to 106) mg/dL 11/29/21 11/29/21 11/30/21 Range/Units 16:37 20:30 07:15 WBC (4.0-10.5) K/mm3 RBC (4.1-5.6) M/mm3 Hgb (12.5-18.0) gm/dl Hct (42-50) % MCV (78-100) fl MCH (26-32) pg MCHC (32-36) g/dl RDW (11.5-14.0) % Plt Count (150-450) K/mm3 MPV (7.5-11.0) fl POC Glucometer 211 H 306 H 122 H (74 to 106) mg/dL 11/30/21 Range/Units 07:36 WBC 12.8 H (4.0-10.5) K/mm3 RBC 4.35 (4.1-5.6) M/mm3 Hgb 10.7 L (12.5-18.0) gm/dl Hct 35.6 L (42-50) % MCV 81.8 (78-100) fl MCH 24.6 L (26-32) pg MCHC 30.1 L (32-36) g/dl RDW 18.6 H (11.5-14.0) % Plt Count 658 H (150-450) K/mm3 MPV 9.5 (7.5-11.0) fl POC Glucometer (74 to 106) mg/dL Radiology Exams: Radiology Procedures Category Date Time Status CHEST 1 VIEW (PORTABLE) Stat Exams 11/28/21 10:48 Completed Multi-Disciplinary Progress Notes: Multi-Disciplinary Progress Notes 11/29/21 13:56 Case Management Note by Tonia Ortez [facility] HAS ACCEPTED PATIENT. THEY WILL NEED NOTIFIED AT [phone] AT TIME OF DC. THEY WILL ALSO NEED FAXED THE DC INSTRUCTIONS, DC MED LEST AND DC SUMMARY (IF AVAILABLE) TO [phone] Initialized on 11/29/21 13:56 - END OF NOTE 11/29/21 11:32 Case Management Note by Tonia Ortez [facility]- [facility] REPORTS PATIENT HAS LOW INCOME MEDICARE AND MOST RX ARE $2-3 WITH HIS EL[employer]QU[employer] BEING ONLY $10. PATIENT STATES HE GETS SS CHECKS Initialized on 11/29/21 11:32 - END OF NOTE 11/29/21 11:25 Case Management Note by Tonia Ortez REFERRAL FAXED TO [facility] REFERRAL EMAILED TO [facility] Initialized on 11/29/21 11:25 - END OF NOTE 11/29/21 11:02 Case Management Note by Tonia Ortez PATIENT REPORTS HE WAS UNABLE TO GET HIS GLUCOMETER FILLED FROM LAST VISIT D/T IT BEING TOO EXPENSIVE. CALLED PHARMACY- THE BRAND WAS NOT COVERED. CALLED AND S/W LAKSHMI AT [place] OFFICE- SHE HAS SENT IT IN AGAIN WITH GIVEN FROM [facility] FOR COVERAGE. [facility] STATED IF THERE WAS ANY ISSUES WITH ORDER THEY WOULD CONTACT THE OFFICE TO GET IT CORRECTED Initialized on 11/29/21 11:02 - END OF NOTE Assessment/Plan (1) Symptomatic anemia Current Visit: Yes Status: Resolved Code(s): D64.9 - ANEMIA, UNSPECIFIED (2) Generalized weakness Current Visit: Yes Status: Acute Code(s): R53.1 - WEAKNESS (3) Noncompliance with medication regimen Current Visit: Yes Status: Acute Code(s): Z91.14 - PATIENT'S OTHER NONCOMPLIANCE WITH MEDICATION REGIMEN (4) Congestive heart failure Current Visit: No Status: Acute Qualifiers: Heart failure type: combined systolic and diastolic Heart failure chronicity: chronic Qualified Code(s): I50.42 - Chronic combined systolic (congestive) and diastolic (congestive) heart failure Code(s): I50.9 - HEART FAILURE, UNSPECIFIED
--- NOTE | 2021-11-30 08:14 | CONS ---
CONSULT DATE: 11/29/2021 HISTORY: The patient is a 56-year-old patient of Dr. Wang with multiple medical problems. He has been noncompliant. He had history of anemia in the past. He said he has not had any prior upper or lower endoscopy in the past. Family history negative for colon cancer. He does report a family history of brother having some hemorrhoid issues. He denies any nausea or vomiting. He had a little bit of old clot and some dark stool, according to the nursing staff. He had a hemoglobin of 6.7 when he came in. PAST MEDICAL HISTORY: Heart disease, arthritis, diabetes. He had a head injury at 7 years old. Congenital neck deformity. He apparently has history of some congestive heart failure. He had a low ejection fraction of 20%, according to the nursing staff, but I do not see a specific report on the chart at the moment. PAST SURGICAL HISTORY: Joint replacement. Kidney removed in the past. He said it was not for cancer. He was a little vague on why it was removed. HOME MEDICATIONS: Spironolactone, lisinopril, apixaban, glimepiride, atorvastatin, docusate sodium, ferrous sulfate, metoprolol. ALLERGIES: PENICILLIN. FAMILY HISTORY: Negative in regards to this problem. SOCIAL HISTORY: He denies smoking, occasional alcohol use denies abuse. LAB DATA AND TESTS: His white count was 8.5 yesterday, hemoglobin 6.7. Platelets 704,000. His liver function tests were unremarkable. REVIEW OF SYSTEMS: Fourteen systems reviewed. He denied any current abdominal pain. Sclera nonicteric. Denies any chest pain or palpitations. PHYSICAL EXAMINATION: GENERAL: No acute distress. HEENT: Sclera nonicteric. NECK: No JVD. CHEST: Equal excursion. CVS: Regular rate and rhythm. ABDOMEN: Soft. No peritoneal signs. EXTREMITIES: No edema. RECTAL: He does have a small what seems to be external hemorrhoids that seem small and may have a little drainage, has a little raw spot in this area. Whether this is some ruptured hemorrhoid, external hemorrhoid or fissure is unclear at this point. Nursing staff said he has not had any bright red blood or bleeding at this time. There is some darker stuff and some old clot. Internal exam reserved for time of endoscopy. NEURO: Alert, oriented, answering questions appropriately. PSYCH: Appropriate mood and affect. IMPRESSION: History of GI bleed unclear etiology. He had some darker stool. He has been on some blood thinner. I would recommend upper and lower endoscopy to evaluate for gastritis, esophagitis, ulcer disease, polyps, neoplasia, inflammatory process or other etiology other than some hemorrhoid issues. General risk of bleeding or infection, risk of bowel injury or perforation possibly requiring open procedure, risk of missed or nondiagnosis or incomplete exam possibly requiring barium enema, risk of sedation or bowel prep. He understands and also entertained the options. He is not interested in any excision of hemorrhoid. He understands it is quite a painful procedure. I did offer the option and is considering internal banding of some internal hemorrhoids if indicated at the time of the procedure. Risk of bleeding or infection, risk of progression of hemorrhoidal disease possibly requiring other procedures or excision down the road. General risk of anesthesia, sedation or bowel prep, risk of aches and pains, remote risk of pelvic sepsis possibly requiring major procedure, risk of perforation possibly requiring open procedure. At this time he was explained the above risk in detail but not limited to. He is not agreeable to consider any endoscopy or hemorrhoid procedure at this time. He is not agreeable to intervention. He was explained the risks and benefits as well as the risk of ongoing bleeding, possibility there could be bleeding from some more serious problem, underlying diagnosis. He understands all the risks but is not agreeing to consider endoscopy or hemorrhoid banding at this time. Therefore I will sign off at this time as he is not agreeing to any surgical intervention or endoscopy. If he changes his mind, I can be contacted at the office and he can follow up as an outpatient. Otherwise continue medical management per Dr. Orantes.
[2021-11-30] MEDS: Amaryl 2 MG PO SCH (08:27)
[2021-11-30] MEDS: FEOSOL 325 MG PO SCH (09:32)
[2021-11-30] MEDS: Zestril 5 MG PO SCH (09:32)
[2021-11-30] MEDS: Toprol-Xl 25MG Tablets PO SCH (09:32)
[2021-11-30] MEDS: Zocor 10MG PO SCH (09:32)
[2021-11-30] MEDS: Aldactone 25 MG PO SCH (09:32)
[2021-11-30] MEDS: COLACE Liquid 50 MG/5 ML PO SCH (09:33)
[2021-11-30] MEDS: ELIQUIS 2.5 MG TABLET PO SCH (09:34)
[2021-11-30 11:21] VITALS: BP 136/60; PULSE 100; O2SAT 95
--- NOTE | 2021-12-04 20:00 | PCM.DS ---
Discharge Summary Date of Admission: 11/28/21 12:59 Admitting Physician: CAROLYN TAMEZ Consults: Consults on Case 11/29/21 09:18 Consult Surgery ROUTINE Primary Care Provider: CAROLYN TAMEZ Allergies Allergies Penicillins Allergy (Verified 11/28/21 10:49) Hospital Summary - Hospital Course Hospital Course: Chief Complaint Diagnosis generalised weaknes for 2-3 days Allergies Allergy/AdvReac Type Severity Reaction Status Date / Time Penicillins Allergy Verified 11/28/21 10:49 Home Medications Medication Instructions Recorded Confirmed Last Taken Type Atorvastatin Calcium 1 tab PO DAILY 11/28/21 11/28/21 11/21/21 History Metoprolol Succinate 25 mg PO DAILY 11/28/21 11/28/21 11/21/21 History Apixaban [Eliquis 2.5 mg Tablet] 2.5 mg PO BID 30 Days tablet 11/30/21 11/28/21 11/21/21 Rx Current Medications Discontinued Medications Generic Name Dose Route Start Last Admin Trade Name Freq PRN Reason Stop Dose Admin Apixaban 2.5 mg 11/28/21 22:00 11/30/21 09:34 Apixaban 2.5 Mg Tablet PO 12/28/21 21:59 Not Given BID RICARDO Docusate Sodium 100 mg 11/28/21 22:00 11/30/21 09:33 Docusate Sodium 50 Mg/5 Ml Liquid PO 12/28/21 21:59 Not Given BID RICARDO Ferrous Sulfate 325 mg 11/28/21 17:00 11/30/21 09:32 Ferrous Sulfate 325 Mg Tablet PO 12/28/21 16:59 325 mg DAILY RICARDO Administration Glimepiride 1 mg 11/29/21 08:00 11/30/21 08:27 Glimepiride 2 Mg Tablet PO 12/29/21 07:59 1 mg BREAKFAST RICARDO Administration Hydrocortisone 1 gm 11/28/21 23:50 11/29/21 03:28 Hydrocortisone 2.5% 30gm Cream Tube TP 12/28/21 23:49 1 gm QID PRN PRN Administration ITCHING Sodium Chloride 1,000 mls @ 100 mls/hr 11/28/21 11:00 11/28/21 11:29 Sodium Chloride 0.9% 1000 Ml IV 12/28/21 10:59 100 mls/hr .Q10H RICARDO Administration Sodium Chloride 1,000 mls @ 100 mls/hr 11/28/21 13:12 11/29/21 10:44 Sodium Chloride 0.9% 1000 Ml IV 12/28/21 13:11 Not Given .Q10H RICARDO Insulin Human Lispro 0 unit 11/28/21 18:43 11/29/21 23:01 Insulin Lispro 1 Unit SQ 12/28/21 18:42 9 unit UD PRN Administration HYPERGLYCEMIA Lisinopril 2.5 mg 11/28/21 17:00 11/30/21 09:32 Lisinopril 5 Mg Tablet PO 12/28/21 16:59 2.5 mg DAILY RICARDO Administration Metoprolol Succinate 25 mg 11/28/21 17:00 11/30/21 09:32 Metoprolol Succinate 25 Mg Xl Tab PO 12/28/21 16:59 25 mg DAILY RICARDO Administration Morphine Sulfate 2 mg 11/28/21 13:12 Morphine Sulfate 2 Mg/Ml Inj IV 12/03/21 13:11 Q4H PRN PRN PAIN Ondansetron HCl 4 mg 11/28/21 13:12 Ondansetron Hcl 4 Mg/2 Ml Vial IV 12/28/21 13:11 Q6H PRN PRN NAUSEA/VOMITING Simvastatin 10 mg 11/29/21 10:00 11/30/21 09:32 Simvastatin 10 Mg Tablet PO 12/29/21 09:59 10 mg DAILY IRCARDO Administration Spironolactone 25 mg 11/28/21 22:00 11/30/21 09:32 Spironolactone 25 Mg Tablet PO 12/28/21 21:59 25 mg BID RICARDO Administration - Vitals & Intake/Output Vital Signs: Vital Signs Temperature 98.7 F 11/30/21 11:20 Pulse Rate 100 H 11/30/21 11:20 Respiratory Rate 16 11/30/21 11:20 Blood Pressure 136/60 11/30/21 11:20 O2 Sat by Pulse Oximetry 95 11/30/21 11:20 - Lab Result Diagrams: 11/30/21 07:36 11/29/21 05:25 Discharge Exam General Appearance: no apparent distress, alert Neurologic Exam: alert, oriented x 3, cooperative, normal mood/affect, nml cerebellar function, sensation nml, No motor deficits Eye Exam: PERRL, EOMI, eyes nml inspection Ears, Nose, Throat Exam: normal ENT inspection, pharynx normal, moist mucous membranes Neck Exam: normal inspection, non-tender, supple, full range of motion Respiratory Exam: normal breath sounds, lungs clear, No respiratory distress Cardiovascular Exam: regular rate/rhythm, normal heart sounds Gastrointestinal/Abdomen Exam: soft, No tenderness, No mass Male Genitalia Exam: deferred Rectal Exam: deferred Back Exam: normal inspection, normal range of motion, No CVA tenderness, No vertebral tenderness Extremity Exam: normal inspection, normal range of motion Skin Exam: normal color, warm, dry Final Diagnosis/Problem List - Final Discharge Diagnosis/Problem (1) Symptomatic anemia Status: Resolved Code(s): D64.9 - ANEMIA, UNSPECIFIED (2) Generalized weakness Status: Acute Code(s): R53.1 - WEAKNESS (3) Noncompliance with medication regimen Status: Acute Code(s): Z91.14 - PATIENT'S OTHER NONCOMPLIANCE WITH MEDICATION REGIMEN (4) Congestive heart failure Status: Acute Priority: High Code(s): I50.9 - HEART FAILURE, UNSPECIFIED - Discharge Discharge Date: 11/30/21 Disposition: Skilled Care @ [facility] Condition: Stable Prescriptions: Continue Glimepiride 2 mg [Amaryl 2 MG] 1 mg PO BREAKFAST #30 tablet Docusate Sodium 50 mg/5 ml [COLACE Liquid 50 MG/5 ML] 100 mg PO BID ml Ferrous Sulfate 325 mg [Feosol 325 mg] 325 mg PO DAILY tablet Spironolactone 25 mg PO BID #30 tablet lisinopriL [Zestril] 2.5 mg PO DAILY #30 tablet Atorvastatin Calcium 1 tab PO DAILY Metoprolol Succinate 25 mg PO DAILY Apixaban [Eliquis 2.5 mg Tablet] 2.5 mg PO BID 30 Days tablet Instructions: Gastrointestinal Bleeding (DC) Additional Instructions: [facility] ORDERS: CONSISTENT CARB DIET ACHS ACCU CHECKS PT/OT EVAL AND TREAT SEE ATTACHED MED LIST Follow up with: IOANA LOWE [COURTESY STAFF] - Call for Appointment CAROLYN TAMEZ MD [Primary Care Provider] - Forms: Transfer Record Intermediate
== END 2021-11-30 14:25 ==
LOC: ED 10:26 → MED SURG 12:59
PROVIDERS: ADMIT General Practice; ATTEND General Practice
DX: D64.9 Anemia, unspecified (principal); R53.1 Weakness; Z91.14 Patient's other noncompliance with medication regimen; E11.9 Type 2 diabetes mellitus without complications; I50.9 Heart failure, unspecified; I50.42 Chronic combined systolic (congestive) and diastolic (congestive) heart failure; K64.9 Unspecified hemorrhoids; Z79.899 Other long term (current) drug therapy; Z79.01 Long term (current) use of anticoagulants; Z20.828 Contact with and (suspected) exposure to other viral communicable diseases
CPT/HCPCS: 0241U; 36000; 36415; 36430; 71045; 80053; 81001; 82947; 84484; 85014; 85018; 85025; 85027; 86850; 86900; 86901; 86922; 93005; 93041; 93268; 94760; 94762; 99285; G0378; P9016; J1817; A9270-GY

== ENCOUNTER 2021-12-12 11:30 | Emergency (ER) | payer MEDICARE ==
[2021-12-12 12:17] LABS: Absolute Neutrophil Ct (ANC) 8.66 (1.4-6.9); Basophil (Absolute #) 0.15 (0-0.4); Eosinophil (Absolute #) 0.11 (0-0.5); Hematocrit 25.7 % (42-50); Hemoglobin 7.7 gm/dl (12.5-18.0); Lymphocyte (Absolute #) 1.27 (1.0-4.6); Lymphocytes % 11.5 % (24.0-44.0); Mean Cell Volume 81.8 fl (78-100); Mean Corpuscular Hemoglobin 24.5 pg (26-32); Mean Platelet Volume 9.4 fl (7.5-11.0); Monocyte (Absolute #) 0.83 (0.0-1.3); Monocytes % 7.5 % (0.0-12.0); Neutrophil % 78.6 % (36.0-66.0); Platelet Count 737 K/mm3 (150-450); Red Blood Count 3.14 M/mm3 (4.1-5.6); Red Cell Distribution Width 18.4 % (11.5-14.0)
[2021-12-12 12:18] LABS: INR 1.1 (0.8-3.0)
--- NOTE | 2021-12-12 12:18 | ERPHSYRPT ---
- History of Present Illness Historian: patient Exam Limitations: other (Poor historian) Patient Subjective Stated Complaint: PT states "I have hemmrhoids and they are bad. The surgeon wants to do surgery but I do not want to. I left [facility] yesterday." Triage Nursing Assessment: Pt presented alert and oriented X 3, skin pwd Pt ambualtes with a walker and slow gait. Pt has speacial made boots for his legs. Physician History: 56 yo wm w multiple medical problems [facility] presents w rectal bleeding presumable due to hemorrhoids x 3 weeks. Pt states that he was seen by a surgeon recently in the [place] who wanted to perform a hemorrhoidectomy which pt refused. He is on Eliquis twice a day. Timing/Duration: week(s) (3 wks) Activities at Onset: rest Quality: aching, other Abdominal Pain Onset Location: other (rectal pain) Pain Radiation: no radiation Severity of Pain-Max: moderate Severity of Pain-Current: moderate Modifying Factors: Improves With: nothing, defecating Associated Symptoms: No back, No chest pain, No diaphoresis, No diarrhea, No fever/chills, No fatigue, No headache, No heartburn, No loss of appetite, No nausea, No neck pain, No rash, No shortness of breath, No syncope, No testicular pain, No vomiting, No weakness Previous symptoms: same symptoms as today Allergies/Adverse Reactions: Penicillins Allergy (Verified 11/28/21 10:49) Home Medications: Atorvastatin Calcium 10 mg PO DAILY 11/28/21 [History] Metoprolol Succinate 25 mg PO DAILY 11/28/21 [History] Hx Tetanus, Diphtheria Vaccination/Date Given: No () Hx Influenza Vaccination/Date Given: No Hx Pneumococcal Vaccination/Date Given: No Immunizations Up to Date: Yes Travel Risk - International Travel Have you traveled outside of the country in past 3 weeks: No - Coronavirus Screening Are you exhibiting any of the following symptoms?: No Close contact with a COVID-19 positive Pt in past 14-21 Days: No - Vaccine Status Have you recieved a Covid-19 vaccination: No - Review of Systems Constitutional: No Symptoms Eyes: No Symptoms Ears, Nose, & Throat: No Symptoms Respiratory: No Symptoms Cardiac: No Symptoms Abdominal/Gastrointestinal: No Symptoms, Hematochezia Genitourinary Symptoms: No Symptoms Musculoskeletal: No Symptoms Skin: No Symptoms Neurological: No Symptoms Psychological: No Symptoms Endocrine: No Symptoms Hematologic/Lymphatic: No Symptoms Immunological/Allergic: No Symptoms - Past Medical History Pertinent Past Medical History: Yes Neurological History: Other ENT History: No Pertinent History Cardiac History: No Pertinent History Respiratory History: No Pertinent History Endocrine Medical History: Diabetes Type II Musculoskeletal History: Arthritis GI Medical History: No Pertinent History History: No Pertinent History Psycho-Social History: No Pertinent History Male Reproductive Disorders: No Pertinent History Other Medical History: hx of head injury 8 yrs ago. congenital neck deformity. - Past Surgical History Past Surgical History: Yes Neuro Surgical History: Other Cardiac: No Pertinent History Respiratory: No Pertinent History Gastrointestinal: No Pertinent History Genitourinary: Kidney Surgery Musculoskeletal: Joint Replacement Male Surgical History: No Pertinent History Other Surgical History: unknown - Social History Smoking Status: Never smoker Exposure to second hand smoke: No Drug Use: none Patient Lives Alone: Yes - Nursing Vital Signs Nursing Vital Signs: Initial Vital Signs Temperature 99.2 F 12/12/21 11:40 Pulse Rate 114 H 12/12/21 11:40 Respiratory Rate 20 12/12/21 11:40 Blood Pressure 119/60 12/12/21 11:40 O2 Sat by Pulse Oximetry 100 12/12/21 11:40 Pain Scale Pain Intensity 4 Tachy - Physical Exam General Appearance: no apparent distress Eye Exam: PERRL/EOMI, other (R conjunctiva somewhat erythematous) Ears, Nose, Throat Exam: normal ENT inspection, TMs normal, pharynx normal, moist mucous membranes Neck Exam: normal inspection, non-tender, supple Respiratory Exam: normal breath sounds, lungs clear, airway intact Cardiovascular Exam: tachycardia Gastrointestinal/Abdomen Exam: soft, normal bowel sounds Rectal Exam: hemorrhoids (Pt w gross blood on rectum and underwear w multiple hemorrhoids) Back Exam: normal inspection Extremity Exam: normal inspection, normal range of motion Neurologic Exam: alert, oriented x 3, 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, 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, normal mood/affect, sensation nml Skin Exam: pale Lymphatic Exam: No adenopathy SpO2 Interpretation: normal SpO2: 100 O2 Delivery: Room Air Ordered Tests: Active Orders 24 hr Category Date Time Status Clear Liquid Diet 12/12/21 Dinner Active CBC W DIFF AM.LAB Lab 12/13/21 04:00 Ordered CBC W DIFF Stat Lab 12/12/21 12:00 Completed CMP AM.LAB Lab 12/13/21 04:00 Ordered CMP Stat Lab 12/12/21 12:00 Completed PROTIME WITH INR Stat Lab 12/12/21 12:00 Completed PTT Stat Lab 12/12/21 12:00 Completed TROPONIN Q3H Lab 12/12/21 12:00 Completed TROPONIN Q3H Lab 12/12/21 15:00 Completed TROPONIN Q3H Lab 12/12/21 18:00 Ordered TROPONIN Q3H Lab 12/12/21 21:00 Ordered TROPONIN Q3H Lab 12/13/21 00:00 Ordered Transfer Order Routine Transfer 12/12/21 Completed Medication Summary Generic Name Dose Route Start Last Admin Trade Name Freq PRN Reason Stop Dose Admin Furosemide 20 mg 12/12/21 14:15 Furosemide 20 Mg/Vial IV 01/11/22 14:14 BETWEEN UNITS RICARDO Sodium Chloride 1,000 mls @ 50 mls/hr 12/12/21 14:15 12/12/21 15:45 Sodium Chloride 0.9% 1000 Ml IV 01/11/22 14:14 50 mls/hr .Q20H RICARDO Administration Pantoprazole Sodium 40 mg 12/12/21 16:00 Pantoprazole 40 Mg Vial IV 01/11/22 15:59 Q24H10 RICARDO Lab/Rad Data: Laboratory Result Diagrams 12/12/21 12:00 12/12/21 12:00 Laboratory Results 12/12/21 12/12/21 12/12/21 Range/Units 15:00 13:50 13:20 WBC (4.0-10.5) K/mm3 RBC (4.1-5.6) M/mm3 Hgb (12.5-18.0) gm/dl Hct (42-50) % MCV (78-100) fl MCH (26-32) pg MCHC (32-36) g/dl RDW (11.5-14.0) % Plt Count (150-450) K/mm3 MPV (7.5-11.0) fl Gran % (36.0-66.0) % Eos # (Auto) (0-0.5) Absolute Lymphs (auto) (1.0-4.6) Absolute Monos (auto) (0.0-1.3) Lymphocytes % (24.0-44.0) % Monocytes % (0.0-12.0) % Eosinophils % (0.00-5.0) % Basophils % (0.0-0.4) % Absolute Granulocytes (1.4-6.9) Basophils # (0-0.4) PT (9.4-12.5) SECONDS INR (0.8-3.0) APTT (25.1-36.5) SECONDS Sodium (137-145) mmol/L Potassium (3.5-5.1) mmol/L Chloride (98-107) mmol/L Carbon Dioxide (22-30) mmol/L Anion Gap (5-15) MEQ/L BUN (9-20) mg/dL Creatinine (0.66-1.25) mg/dL Estimated GFR ML/MIN Glucose (74-106) mg/dL Calcium (8.4-10.2) mg/dL Total Bilirubin (0.2-1.3) mg/dL AST (17-59) U/L ALT (0-50) U/L Alkaline Phosphatase (38-126) U/L Troponin I < 0.012 (0.000-0.034) ng/mL Serum Total Protein (6.3-8.2) g/dL Albumin (3.5-5.0) g/dL Influenza Type A Ag NEGATIVE (NEGATIVE) Influenza Type B Ag NEGATIVE (NEGATIVE) RSV (PCR) NEGATIVE (Negative) SARS-CoV-2 (PCR) NEGATIVE (NEGATIVE) ABO Group Rh Factor Antibody Screen (NEGATIVE) Crossmatch COMPATIBLE (COMPATIBLE) 12/12/21 12/12/21 12/12/21 Range/Units 13:20 12:00 12:00 WBC (4.0-10.5) K/mm3 RBC (4.1-5.6) M/mm3 Hgb (12.5-18.0) gm/dl Hct (42-50) % MCV (78-100) fl MCH (26-32) pg MCHC (32-36) g/dl RDW (11.5-14.0) % Plt Count (150-450) K/mm3 MPV (7.5-11.0) fl Gran % (36.0-66.0) % Eos # (Auto) (0-0.5) Absolute Lymphs (auto) (1.0-4.6) Absolute Monos (auto) (0.0-1.3) Lymphocytes % (24.0-44.0) % Monocytes % (0.0-12.0) % Eosinophils % (0.00-5.0) % Basophils % (0.0-0.4) % Absolute Granulocytes (1.4-6.9) Basophils # (0-0.4) PT 13.0 H (9.4-12.5) SECONDS INR 1.10 (0.8-3.0) APTT 27.0 (25.1-36.5) SECONDS Sodium (137-145) mmol/L Potassium (3.5-5.1) mmol/L Chloride (98-107) mmol/L Carbon Dioxide (22-30) mmol/L Anion Gap (5-15) MEQ/L BUN (9-20) mg/dL Creatinine (0.66-1.25) mg/dL Estimated GFR ML/MIN Glucose (74-106) mg/dL Calcium (8.4-10.2) mg/dL Total Bilirubin (0.2-1.3) mg/dL AST (17-59) U/L ALT (0-50) U/L Alkaline Phosphatase (38-126) U/L Troponin I < 0.012 (0.000-0.034) ng/mL Serum Total Protein (6.3-8.2) g/dL Albumin (3.5-5.0) g/dL Influenza Type A Ag (NEGATIVE) Influenza Type B Ag (NEGATIVE) RSV (PCR) (Negative) SARS-CoV-2 (PCR) (NEGATIVE) ABO Group AB Rh Factor POSITIVE Antibody Screen NEGATIVE (NEGATIVE) Crossmatch COMPATIBLE (COMPATIBLE) 12/12/21 12/12/21 Range/Units 12:00 12:00 WBC 11.0 H (4.0-10.5) K/mm3 RBC 3.14 L (4.1-5.6) M/mm3 Hgb 7.7 L (12.5-18.0) gm/dl Hct 25.7 L (42-50) % MCV 81.8 (78-100) fl MCH 24.5 L (26-32) pg MCHC 30.0 L (32-36) g/dl RDW 18.4 H (11.5-14.0) % Plt Count 737 H (150-450) K/mm3 MPV 9.4 (7.5-11.0) fl Gran % 78.6 H (36.0-66.0) % Eos # (Auto) 0.11 (0-0.5) Absolute Lymphs (auto) 1.27 (1.0-4.6) Absolute Monos (auto) 0.83 (0.0-1.3) Lymphocytes % 11.5 L (24.0-44.0) % Monocytes % 7.5 (0.0-12.0) % Eosinophils % 1.0 (0.00-5.0) % Basophils % 1.4 (0.0-0.4) % Absolute Granulocytes 8.66 H (1.4-6.9) Basophils # 0.15 (0-0.4) PT (9.4-12.5) SECONDS INR (0.8-3.0) APTT (25.1-36.5) SECONDS Sodium 133 L (137-145) mmol/L Potassium 4.5 (3.5-5.1) mmol/L Chloride 98 (98-107) mmol/L Carbon Dioxide 22 (22-30) mmol/L Anion Gap 17.3 H (5-15) MEQ/L BUN 21 H (9-20) mg/dL Creatinine 1.58 H (0.66-1.25) mg/dL Estimated GFR 48.3 ML/MIN Glucose 333 H (74-106) mg/dL Calcium 9.2 (8.4-10.2) mg/dL Total Bilirubin 0.70 (0.2-1.3) mg/dL AST 49 (17-59) U/L ALT 34 (0-50) U/L Alkaline Phosphatase 93 (38-126) U/L Troponin I (0.000-0.034) ng/mL Serum Total Protein 6.9 (6.3-8.2) g/dL Albumin 4.1 (3.5-5.0) g/dL Influenza Type A Ag (NEGATIVE) Influenza Type B Ag (NEGATIVE) RSV (PCR) (Negative) SARS-CoV-2 (PCR) (NEGATIVE) ABO Group Rh Factor Antibody Screen (NEGATIVE) Crossmatch (COMPATIBLE) - Progress Progress Note: 12/12/21 13:[address] Orantes 12/12/21 19:16 Pt want DNR status Discussed with : Waqar Will see patient in: hospital (observation) Counseled pt/family regarding: lab results, diagnosis - Departure Departure Disposition: Observation Clinical Impression: Rectal bleeding Condition: Stable Critical Care Time: No
[2021-12-12 12:33] LABS: ALBUMIN 4.1 g/dL (3.5-5.0); ANION GAP 17.3 MEQ/L (5-15); BILIRUBIN,TOTAL 0.7 mg/dL (0.2-1.3); Calcium 9.2 mg/dL (8.4-10.2); Creatinine 1 1.58 mg/dL (0.66-1.25); EST GLOMERULAR FILTRATION RATE 48.3 ML/MIN; Potassium 4.5 mmol/L (3.5-5.1); Total Protein 6.9 g/dL (6.3-8.2)
[2021-12-12] MEDS ORDERED: Lasix 20 MG/2 ML IV SCH (14:15)
[2021-12-12 14:46] LABS: INFLUENZA A NEGATIVE (NEGATIVE); INFLUENZA B NEGATIVE (NEGATIVE); RESPIRATORY SYNCTIAL VIRUS NEGATIVE (Negative); SARS-CoV-2 Xpert Express NEGATIVE (NEGATIVE)
[2021-12-12 15:28] LABS: ABO TYPING AB; Antibody Screen NEGATIVE (NEGATIVE); RH TYPING POSITIVE
[2021-12-12 15:30] LABS: CROSS MATCH (PRBC) COMPATIBLE (COMPATIBLE)
[2021-12-12] MEDS: Sodium Chloride 0.9% 1000 ML 1,000 ML IV SCH (15:45)
[2021-12-12] MEDS: PROTONIX 40 MG IV IV SCH (19:43)
[2021-12-13 01:55] LABS: Hematocrit 34.3 % (42-50); Hemoglobin 10.9 gm/dl (12.5-18.0)
[2021-12-13 05:39] LABS: Absolute Neutrophil Ct (ANC) 6.74 (1.4-6.9); Basophil (Absolute #) 0.22 (0-0.4); Eosinophil % 1.9 % (0.00-5.0); Eosinophil (Absolute #) 0.19 (0-0.5); Hematocrit 33.2 % (42-50); Hemoglobin 10.5 gm/dl (12.5-18.0); Lymphocyte (Absolute #) 1.67 (1.0-4.6); Mean Corpuscular Hemoglobin 25.9 pg (26-32); Mean Corpuscular Hgb Concent. 31.6 g/dl (32-36); Mean Platelet Volume 9.7 fl (7.5-11.0); Monocyte (Absolute #) 1.01 (0.0-1.3); Monocytes % 10.3 % (0.0-12.0); Neutrophil % 68.6 % (36.0-66.0); Platelet Count 634 K/mm3 (150-450); Red Blood Count 4.05 M/mm3 (4.1-5.6); Red Cell Distribution Width 17.5 % (11.5-14.0); White Blood Count 9.8 K/mm3 (4.0-10.5)
[2021-12-13 05:48] LABS: ALBUMIN 3.9 g/dL (3.5-5.0); ANION GAP 16.3 MEQ/L (5-15); BILIRUBIN,TOTAL 1.4 mg/dL (0.2-1.3); Calcium 8.5 mg/dL (8.4-10.2); Creatinine 1 1.54 mg/dL (0.66-1.25); EST GLOMERULAR FILTRATION RATE 49.7 ML/MIN; Potassium 4.1 mmol/L (3.5-5.1); Total Protein 6.7 g/dL (6.3-8.2)
--- NOTE | 2021-12-13 08:05 | PCM.HP ---
History of Present Illness - Chief Complaint Chief Complaint: Rectal Bleed History of Present Illness: is a 56 year old male.with multiple medical problems who just left the alf presents w rectal bleeding presumable due to hemorrhoids x 3 weeks. Pt states that he was seen by a surgeon recently in the [place] who wanted to perform a hemorrhoidectomy which pt refused. He is on Eliquis twice a day. Timing/Duration: week(s) (3 wks) Activities at Onset: rest Quality: aching, other Abdominal Pain Onset Location: other (rectal pain) Pain Radiation: no radiation Severity of Pain-Max: moderate Severity of Pain-Current: moderate Modifying Factors: Improves With: nothing, defecating Associated Symptoms: No back, No chest pain, No diaphoresis, No diarrhea, No fever/chills, No fatigue, No headache, No heartburn, No loss of appetite, No nausea, No neck pain, No rash, No shortness of breath, No syncope, No testicular pain, No vomiting, No weakness Previous symptoms: same symptoms as today - Review of Systems Constitutional: No Fever, No Chills Eyes: No Symptoms Ears, Nose, & Throat: No Symptoms Respiratory: No Cough, No Short Of Breath Cardiac: No Chest Pain, No Edema, No Syncope Abdominal/Gastrointestinal: Hematochezia, Other (hemorrhoids), No Abdominal Mckenzie n, No Nausea, No Vomiting, No Diarrhea Genitourinary Symptoms: No Dysuria Musculoskeletal: No Back Pain, No Neck Pain Skin: No Rash Neurological: No Dizziness, No Focal Weakness, No Sensory Changes Psychological: No Symptoms Endocrine: No Symptoms Hematologic/Lymphatic: No Symptoms Immunological/Allergic: No Symptoms Medications & Allergies Home Medications: Home Medication List Docusate Sodium 50 mg/5 ml [COLACE Liquid 50 MG/5 ML] 100 mg PO BID ml 09/08/21 [Rx Confirmed 12/12/21] Ferrous Sulfate 325 mg [Feosol 325 mg] 325 mg PO DAILY tablet 09/08/21 [Rx Confirmed 12/12/21] Glimepiride 2 mg [Amaryl 2 MG] 1 mg PO BREAKFAST #30 tablet 09/08/21 [Rx Confirmed 12/12/21] Spironolactone 25 mg PO BID #30 tablet 09/08/21 [Rx Confirmed 12/12/21] lisinopriL [Zestril] 2.5 mg PO DAILY #30 tablet 09/08/21 [Rx Confirmed 12/12/21] Atorvastatin Calcium 10 mg PO DAILY 11/28/21 [History Confirmed 12/12/21] Metoprolol Succinate 25 mg PO DAILY 11/28/21 [History Confirmed 12/12/21] Apixaban [Eliquis 2.5 mg Tablet] 2.5 mg PO BID 30 Days tablet 11/30/21 [Rx Confirmed 12/12/21] Allergies/Adverse Reactions: Allergies Allergy/AdvReac Type Severity Reaction Status Date / Time Penicillins Allergy Verified 11/28/21 10:49 - Past Medical History Past Medical History: Yes Neurological History: Other ENT History: No Pertinent History Cardiac History: No Pertinent History Respiratory History: No Pertinent History Endocrine Medical History: Diabetes Type II Musculoskelatal History: Arthritis GI Medical History: No Pertinent History History: No Pertinent History Pyscho-Social History: No Pertinent History Male Reproductive Disorders: No Pertinent History Comment: hx of head injury 8 yrs ago. congenital neck deformity. - Past Surgical History Past Surgical History: Yes Neuro Surgical History: Other Cardiac History: No Pertinent History Respiratory Surgery: No Pertinent History GI Surgical History: No Pertinent History Genitourinary Surgical Hx: Kidney Surgery Musculskeletal Surgical Hx: Joint Replacement Male Surgical History: No Pertinent History Other Surgical History: unknown - Social History Smoking Status: Never smoker Exposure to second hand smoke: No Alcohol: Occasionally Drug Use: none - Physical Exam Vital Signs: Vital Signs - 24 hr Temp Pulse Resp BP Pulse Ox 12/13/21 07:36 97.3 F 100 H 23 106/66 99 12/13/21 04:00 97.8 F 95 H 16 102/57 96 12/13/21 00:17 97.8 F 104 H 18 110/57 99 12/12/21 19:16 100 12/12/21 19:15 98.0 F 102 H 16 111/67 92 L 12/12/21 19:09 98.0 F 102 H 16 111/67 92 L 12/12/21 16:00 98.3 F 107 H 20 120/67 99 12/12/21 15:33 98.3 F 85 20 120/67 91 L 12/12/21 14:44 99.0 F 98 H 20 98/42 97 02/21/22 12:33 99.0 F 99 H 20 103/61 98 12/12/21 11:40 99.2 F 114 H 20 119/60 100 General Appearance: no apparent distress, alert Neurologic Exam: alert, oriented x 3, cooperative, normal mood/affect, nml cerebellar function, nml station & gait, sensation nml, No motor deficits Eye Exam: PERRL/EOMI, eyes nml inspection Ears, Nose, Throat Exam: normal ENT inspection, TMs normal, pharynx normal, moist mucous membranes Neck Exam: normal inspection, non-tender, supple, full range of motion Respiratory Exam: normal breath sounds, lungs clear, No respiratory distress Cardiovascular Exam: regular rate/rhythm, normal heart sounds, normal peripheral pulses Gastrointestinal/Abdomen Exam: soft, normal bowel sounds, other (large hemorrhoids), No tenderness, No mass Back Exam: normal inspection, normal range of motion, No CVA tenderness, No lizzy tebral tenderness Extremity Exam: normal inspection, normal range of motion, pelvis stable Skin Exam: normal color, warm, dry, No rash Lymphatic Exam: No adenopathy Results - Labs Lab/Micro Results: Lab Results-Last 24 Hours 12/12/21 12/12/21 12/12/21 Range/Units 12:00 12:00 12:00 WBC 11.0 H (4.0-10.5) K/mm3 RBC 3.14 L (4.1-5.6) M/mm3 Hgb 7.7 L (12.5-18.0) gm/dl Hct 25.7 L (42-50) % MCV 81.8 (78-100) fl MCH 24.5 L (26-32) pg MCHC 30.0 L (32-36) g/dl RDW 18.4 H (11.5-14.0) % Plt Count 737 H (150-450) K/mm3 MPV 9.4 (7.5-11.0) fl Gran % 78.6 H (36.0-66.0) % Eos # (Auto) 0.11 (0-0.5) Absolute Lymphs (auto) 1.27 (1.0-4.6) Absolute Monos (auto) 0.83 (0.0-1.3) Lymphocytes % 11.5 L (24.0-44.0) % Monocytes % 7.5 (0.0-12.0) % Eosinophils % 1.0 (0.00-5.0) % Basophils % 1.4 (0.0-0.4) % Absolute Granulocytes 8.66 H (1.4-6.9) Basophils # 0.15 (0-0.4) PT 13.0 H (9.4-12.5) SECONDS INR 1.10 (0.8-3.0) APTT 27.0 (25.1-36.5) SECONDS Sodium 133 L (137-145) mmol/L Potassium 4.5 (3.5-5.1) mmol/L Chloride 98 (98-107) mmol/L Carbon Dioxide 22 (22-30) mmol/L Anion Gap 17.3 H (5-15) MEQ/L BUN 21 H (9-20) mg/dL Creatinine 1.58 H (0.66-1.25) mg/dL Estimated GFR 48.3 ML/MIN Glucose 333 H (74-106) mg/dL POC Glucometer (74 to 106) mg/dL Calcium 9.2 (8.4-10.2) mg/dL Total Bilirubin 0.70 (0.2-1.3) mg/dL AST 49 (17-59) U/L ALT 34 (0-50) U/L Alkaline Phosphatase 93 (38-126) U/L Troponin I (0.000-0.034) ng/mL Serum Total Protein 6.9 (6.3-8.2) g/dL Albumin 4.1 (3.5-5.0) g/dL Influenza Type A Ag (NEGATIVE) Influenza Type B Ag (NEGATIVE) RSV (PCR) (Negative) SARS-CoV-2 (PCR) (NEGATIVE) ABO Group Rh Factor Antibody Screen (NEGATIVE) Crossmatch (COMPATIBLE) 12/12/21 12/12/21 12/12/21 Range/Units 12:00 13:20 13:20 WBC (4.0-10.5) K/mm3 RBC (4.1-5.6) M/mm3 Hgb (12.5-18.0) gm/dl Hct (42-50) % MCV (78-100) fl MCH (26-32) pg MCHC (32-36) g/dl RDW (11.5-14.0) % Plt Count (150-450) K/mm3 MPV (7.5-11.0) fl Gran % (36.0-66.0) % Eos # (Auto) (0-0.5) Absolute Lymphs (auto) (1.0-4.6) Absolute Monos (auto) (0.0-1.3) Lymphocytes % (24.0-44.0) % Monocytes % (0.0-12.0) % Eosinophils % (0.00-5.0) % Basophils % (0.0-0.4) % Absolute Granulocytes (1.4-6.9) Basophils # (0-0.4) PT (9.4-12.5) SECONDS INR (0.8-3.0) APTT (25.1-36.5) SECONDS Sodium (137-145) mmol/L Potassium (3.5-5.1) mmol/L Chloride (98-107) mmol/L Carbon Dioxide (22-30) mmol/L Anion Gap (5-15) MEQ/L BUN (9-20) mg/dL Creatinine (0.66-1.25) mg/dL Estimated GFR ML/MIN Glucose (74-106) mg/dL POC Glucometer (74 to 106) mg/dL Calcium (8.4-10.2) mg/dL Total Bilirubin (0.2-1.3) mg/dL AST (17-59) U/L ALT (0-50) U/L Alkaline Phosphatase (38-126) U/L Troponin I < 0.012 (0.000-0.034) ng/mL Serum Total Protein (6.3-8.2) g/dL Albumin (3.5-5.0) g/dL Influenza Type A Ag (NEGATIVE) Influenza Type B Ag (NEGATIVE) RSV (PCR) (Negative) SARS-CoV-2 (PCR) (NEGATIVE) ABO Group AB Rh Factor POSITIVE Antibody Screen NEGATIVE (NEGATIVE) Crossmatch COMPATIBLE COMPATIBLE (COMPATIBLE) 12/12/21 12/12/21 12/12/21 Range/Units 13:50 15:00 20:51 WBC (4.0-10.5) K/mm3 RBC (4.1-5.6) M/mm3 Hgb (12.5-18.0) gm/dl Hct (42-50) % MCV (78-100) fl MCH (26-32) pg MCHC (32-36) g/dl RDW (11.5-14.0) % Plt Count (150-450) K/mm3 MPV (7.5-11.0) fl Gran % (36.0-66.0) % Eos # (Auto) (0-0.5) Absolute Lymphs (auto) (1.0-4.6) Absolute Monos (auto) (0.0-1.3) Lymphocytes % (24.0-44.0) % Monocytes % (0.0-12.0) % Eosinophils % (0.00-5.0) % Basophils % (0.0-0.4) % Absolute Granulocytes (1.4-6.9) Basophils # (0-0.4) PT (9.4-12.5) SECONDS INR (0.8-3.0) APTT (25.1-36.5) SECONDS Sodium (137-145) mmol/L Potassium (3.5-5.1) mmol/L Chloride (98-107) mmol/L Carbon Dioxide (22-30) mmol/L Anion Gap (5-15) MEQ/L BUN (9-20) mg/dL Creatinine (0.66-1.25) mg/dL Estimated GFR ML/MIN Glucose (74-106) mg/dL POC Glucometer 168 H (74 to 106) mg/dL Calcium (8.4-10.2) mg/dL Total Bilirubin (0.2-1.3) mg/dL AST (17-59) U/L ALT (0-50) U/L Alkaline Phosphatase (38-126) U/L Troponin I < 0.012 (0.000-0.034) ng/mL Serum Total Protein (6.3-8.2) g/dL Albumin (3.5-5.0) g/dL Influenza Type A Ag NEGATIVE (NEGATIVE) Influenza Type B Ag NEGATIVE (NEGATIVE) RSV (PCR) NEGATIVE (Negative) SARS-CoV-2 (PCR) NEGATIVE (NEGATIVE) ABO Group Rh Factor Antibody Screen (NEGATIVE) Crossmatch (COMPATIBLE) 12/13/21 12/13/21 12/13/21 Range/Units 01:30 01:30 05:20 WBC 9.8 (4.0-10.5) K/mm3 RBC 4.05 L (4.1-5.6) M/mm3 Hgb 10.9 L D 10.5 L (12.5-18.0) gm/dl Hct 34.3 L 33.2 L (42-50) % MCV 82.0 (78-100) fl MCH 25.9 L (26-32) pg MCHC 31.6 L (32-36) g/dl RDW 17.5 H (11.5-14.0) % Plt Count 634 H (150-450) K/mm3 MPV 9.7 (7.5-11.0) fl Gran % 68.6 H (36.0-66.0) % Eos # (Auto) 0.19 (0-0.5) Absolute Lymphs (auto) 1.67 (1.0-4.6) Absolute Monos (auto) 1.01 (0.0-1.3) Lymphocytes % 17.0 L (24.0-44.0) % Monocytes % 10.3 (0.0-12.0) % Eosinophils % 1.9 (0.00-5.0) % Basophils % 2.2 (0.0-0.4) % Absolute Granulocytes 6.74 (1.4-6.9) Basophils # 0.22 (0-0.4) PT (9.4-12.5) SECONDS INR (0.8-3.0) APTT (25.1-36.5) SECONDS Sodium (137-145) mmol/L Potassium (3.5-5.1) mmol/L Chloride (98-107) mmol/L Carbon Dioxide (22-30) mmol/L Anion Gap (5-15) MEQ/L BUN (9-20) mg/dL Creatinine (0.66-1.25) mg/dL Estimated GFR ML/MIN Glucose (74-106) mg/dL POC Glucometer (74 to 106) mg/dL Calcium (8.4-10.2) mg/dL Total Bilirubin (0.2-1.3) mg/dL AST (17-59) U/L ALT (0-50) U/L Alkaline Phosphatase (38-126) U/L Troponin I < 0.012 (0.000-0.034) ng/mL Serum Total Protein (6.3-8.2) g/dL Albumin (3.5-5.0) g/dL Influenza Type A Ag (NEGATIVE) Influenza Type B Ag (NEGATIVE) RSV (PCR) (Negative) SARS-CoV-2 (PCR) (NEGATIVE) ABO Group Rh Factor Antibody Screen (NEGATIVE) Crossmatch (COMPATIBLE) 12/13/21 12/13/21 Range/Units 05:20 07:18 WBC (4.0-10.5) K/mm3 RBC (4.1-5.6) M/mm3 Hgb (12.5-18.0) gm/dl Hct (42-50) % MCV (78-100) fl MCH (26-32) pg MCHC (32-36) g/dl RDW (11.5-14.0) % Plt Count (150-450) K/mm3 MPV (7.5-11.0) fl Gran % (36.0-66.0) % Eos # (Auto) (0-0.5) Absolute Lymphs (auto) (1.0-4.6) Absolute Monos (auto) (0.0-1.3) Lymphocytes % (24.0-44.0) % Monocytes % (0.0-12.0) % Eosinophils % (0.00-5.0) % Basophils % (0.0-0.4) % Absolute Granulocytes (1.4-6.9) Basophils # (0-0.4) PT (9.4-12.5) SECONDS INR (0.8-3.0) APTT (25.1-36.5) SECONDS Sodium 133 L (137-145) mmol/L Potassium 4.1 (3.5-5.1) mmol/L Chloride 99 (98-107) mmol/L Carbon Dioxide 22 (22-30) mmol/L Anion Gap 16.3 H (5-15) MEQ/L BUN 22 H (9-20) mg/dL Creatinine 1.54 H (0.66-1.25) mg/dL Estimated GFR 49.7 ML/MIN Glucose 184 H (74-106) mg/dL POC Glucometer 177 H (74 to 106) mg/dL Calcium 8.5 (8.4-10.2) mg/dL Total Bilirubin 1.40 H (0.2-1.3) mg/dL AST 37 (17-59) U/L ALT 29 (0-50) U/L Alkaline Phosphatase 92 (38-126) U/L Troponin I (0.000-0.034) ng/mL Serum Total Protein 6.7 (6.3-8.2) g/dL Albumin 3.9 (3.5-5.0) g/dL Influenza Type A Ag (NEGATIVE) Influenza Type B Ag (NEGATIVE) RSV (PCR) (Negative) SARS-CoV-2 (PCR) (NEGATIVE) ABO Group Rh Factor Antibody Screen (NEGATIVE) Crossmatch (COMPATIBLE) Accuchecks Date 12/12/21 Time 22:00 Assessment/Plan (1) Rectal bleeding Current Visit: Yes Status: Acute Assessment & Plan: Chief Complaint Diagnosis Rectal Bleed Allergies Allergy/AdvReac Type Severity Reaction Status Date / Time Penicillins Allergy Verified 11/28/21 10:49 Vital Signs (Last 24 hours) Temp Pulse Resp BP Pulse Ox 12/13/21 07:36 97.3 F 100 H 23 106/66 99 12/13/21 04:00 97.8 F 95 H 16 102/57 96 12/13/21 00:17 97.8 F 104 H 18 110/57 99 12/12/21 19:16 100 12/12/21 19:15 98.0 F 102 H 16 111/67 92 L 12/12/21 19:09 98.0 F 102 H 16 111/67 92 L 12/12/21 16:00 98.3 F 107 H 20 120/67 99 12/12/21 15:33 98.3 F 85 20 120/67 91 L 12/12/21 14:44 99.0 F 98 H 20 98/42 97 12/12/21 12:33 99.0 F 99 H 20 103/61 98 12/12/21 11:40 99.2 F 114 H 20 119/60 100 Current Medications Generic Name Dose Route Start Last Admin Trade Name Freq PRN Reason Stop Dose Admin Furosemide 20 mg 12/12/21 14:15 12/12/21 20:53 Furosemide 20 Mg/Vial IV 01/11/22 14:14 20 mg BETWEEN UNITS RICARDO Administration Sodium Chloride 1,000 mls @ 50 mls/hr 12/12/21 14:15 12/12/21 15:45 Sodium Chloride 0.9% 1000 Ml IV 01/11/22 14:14 50 mls/hr .Q20H RICARDO Administration Pantoprazole Sodium 40 mg 12/12/21 16:00 12/12/21 19:43 Pantoprazole 40 Mg Vial IV 01/11/22 15:59 40 mg Q24H10 RICARDO Administration Intake & Output (Last 24 hours) 12/10/21 12/11/21 12/12/21 12/13/21 11:59 11:59 11:59 11:59 Intake Total 1827 Output Total 1575 Balance 252 Weight 52.6 kg 52.6 kg Laboratory Results (Last 24 hours) 12/13/21 12/13/21 12/13/21 07:18 05:20 05:20 WBC 9.8 RBC 4.05 L Hgb 10.5 L Hct 33.2 L MCV 82.0 MCH 25.9 L MCHC 31.6 L RDW 17.5 H Plt Count 634 H MPV 9.7 Gran % 68.6 H Eos # (Auto) 0.19 Absolute Lymphs (auto) 1.67 Absolute Monos (auto) 1.01 Lymphocytes % 17.0 L Monocytes % 10.3 Eosinophils % 1.9 Basophils % 2.2 Absolute Granulocytes 6.74 Basophils # 0.22 PT INR APTT Sodium 133 L Potassium 4.1 Chloride 99 Carbon Dioxide 22 Anion Gap 16.3 H BUN 22 H Creatinine 1.54 H Estimated GFR 49.7 Glucose 184 H POC Glucometer 177 H Calcium 8.5 Total Bilirubin 1.40 H AST 37 ALT 29 Alkaline Phosphatase 92 Troponin I Serum Total Protein 6.7 Albumin 3.9 Influenza Type A Ag Influenza Type B Ag RSV (PCR) SARS-CoV-2 (PCR) ABO Group Rh Factor Antibody Screen Crossmatch 12/13/21 12/13/21 12/12/21 01:30 01:30 20:51 WBC RBC Hgb 10.9 L D Hct 34.3 L MCV MCH MCHC RDW Plt Count MPV Gran % Eos # (Auto) Absolute Lymphs (auto) Absolute Monos (auto) Lymphocytes % Monocytes % Eosinophils % Basophils % Absolute Granulocytes Basophils # PT INR APTT Sodium Potassium Chloride Carbon Dioxide Anion Gap BUN Creatinine Estimated GFR Glucose POC Glucometer 168 H Calcium Total Bilirubin AST ALT Alkaline Phosphatase Troponin I < 0.012 Serum Total Protein Albumin Influenza Type A Ag Influenza Type B Ag RSV (PCR) SARS-CoV-2 (PCR) ABO Group Rh Factor Antibody Screen Crossmatch 12/12/21 12/12/21 12/12/21 15:00 13:50 13:20 WBC RBC Hgb Hct MCV MCH MCHC RDW Plt Count MPV Gran % Eos # (Auto) Absolute Lymphs (auto) Absolute Monos (auto) Lymphocytes % Monocytes % Eosinophils % Basophils % Absolute Granulocytes Basophils # PT INR APTT Sodium Potassium Chloride Carbon Dioxide Anion Gap BUN Creatinine Estimated GFR Glucose POC Glucometer Calcium Total Bilirubin AST ALT Alkaline Phosphatase Troponin I < 0.012 Serum Total Protein Albumin Influenza Type A Ag NEGATIVE Influenza Type B Ag NEGATIVE RSV (PCR) NEGATIVE SARS-CoV-2 (PCR) NEGATIVE ABO Group Rh Factor Antibody Screen Crossmatch COMPATIBLE 12/12/21 12/12/21 12/12/21 13:20 12:00 12:00 WBC RBC Hgb Hct MCV MCH MCHC RDW Plt Count MPV Gran % Eos # (Auto) Absolute Lymphs (auto) Absolute Monos (auto) Lymphocytes % Monocytes % Eosinophils % Basophils % Absolute Granulocytes Basophils # PT 13.0 H INR 1.10 APTT 27.0 Sodium Potassium Chloride Carbon Dioxide Anion Gap BUN Creatinine Estimated GFR Glucose POC Glucometer Calcium Total Bilirubin AST ALT Alkaline Phosphatase Troponin I < 0.012 Serum Total Protein Albumin Influenza Type A Ag Influenza Type B Ag RSV (PCR) SARS-CoV-2 (PCR) ABO Group AB Rh Factor POSITIVE Antibody Screen NEGATIVE Crossmatch COMPATIBLE 12/12/21 12/12/21 12:00 12:00 WBC 11.0 H RBC 3.14 L Hgb 7.7 L Hct 25.7 L MCV 81.8 MCH 24.5 L MCHC 30.0 L RDW 18.4 H Plt Count 737 H MPV 9.4 Gran % 78.6 H Eos # (Auto) 0.11 Absolute Lymphs (auto) 1.27 Absolute Monos (auto) 0.83 Lymphocytes % 11.5 L Monocytes % 7.5 Eosinophils % 1.0 Basophils % 1.4 Absolute Granulocytes 8.66 H Basophils # 0.15 PT INR APTT Sodium 133 L Potassium 4.5 Chloride 98 Carbon Dioxide 22 Anion Gap 17.3 H BUN 21 H Creatinine 1.58 H Estimated GFR 48.3 Glucose 333 H POC Glucometer Calcium 9.2 Total Bilirubin 0.70 AST 49 ALT 34 Alkaline Phosphatase 93 Troponin I Serum Total Protein 6.9 Albumin 4.1 Influenza Type A Ag Influenza Type B Ag RSV (PCR) SARS-CoV-2 (PCR) ABO Group Rh Factor Antibody Screen Crossmatch Orders (Last 24 hours) Category Date Time Status Bedrest ROUTINE Activity 12/12/21 14:04 Active Code Status Order ROUTINE Care 12/12/21 14:[address] in Observation ROUTINE Care 12/12/21 14:03 Active Vital Signs Q4H Care 12/12/21 14:03 Active 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 ROUTINE Cons 12/12/21 14:32 Active 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 ROUTINE Cons 12/12/21 16:34 Active Clear Liquid Diet 12/12/21 Dinner Active Nutritional Admission Screen ONCE Diet 12/12/21 16:34 Active BLOOD COMPONENT REQUEST Stat Lab 12/12/21 13:50 Completed CBC W DIFF AM.LAB Lab 12/13/21 05:20 Completed CBC W DIFF Stat Lab 12/12/21 12:00 Completed CMP AM.LAB Lab 12/13/21 05:20 Completed CMP Stat Lab 12/12/21 12:00 Completed HEMOGLOBIN AND HEMATOCRIT Stat Lab 12/13/21 01:30 Completed POCT GLUCOSE Stat Lab 12/12/21 20:51 Completed POCT GLUCOSE Stat Lab 12/13/21 07:18 Completed PROTIME WITH INR Stat Lab 12/12/21 12:00 Completed PTT Stat Lab 12/12/21 12:00 Completed TROPONIN Q3H Lab 12/12/21 12:00 Completed TROPONIN Q3H Lab 12/12/21 15:00 Completed TROPONIN Q3H Lab 12/13/21 01:30 Completed TYPE AND SCREEN Stat Lab 12/12/21 13:20 Completed Furosemide 20 mg/2 ml [Lasix 20 MG/2 ML] Med 12/12/21 14:15 Active 20 mg IV BETWEEN UNITS NaCl 0.9% 1000 ml [Sodium Chloride 0.9% 1000 ML] 1,000 Med 12/12/21 14:15 Active ml IV 50 mls/hr Pantoprazole 40 mg [Protonix 40 mg IV] Med 12/12/21 16:00 Active 40 mg IV Q24H10 Patient Care Notes (Last 24 hours) 12/12/21 16:14 Nursing Note by Dianne Lomax PATIENT STATES DOES NOT KNOW HIS MEDICATIONS, HAS NOT TAKEN ANYTHING SINCE LEAVING [facility] YESTERDAY, PHONED AND REQUESTED [facility] TO PLEASE FAX MED LIST OVER. Initialized on 12/12/21 16:14 - END OF NOTE Code(s): K62.5 - HEMORRHAGE OF ANUS AND RECTUM (2) Generalized weakness Current Visit: No Status: Acute Code(s): R53.1 - WEAKNESS (3) Hemorrhoids Current Visit: No Status: Acute Code(s): K64.9 - UNSPECIFIED HEMORRHOIDS
[2021-12-13] MEDS: PROTONIX 40 MG IV IV SCH (09:41)
[2021-12-13 12:37] VITALS: BP 105/57; PULSE 93; O2SAT 100
[2021-12-13] MEDS ORDERED: Zestril 5 MG PO SCH (13:00)
[2021-12-13] MEDS ORDERED: Colace 100 MG PO SCH (13:00)
[2021-12-13] MEDS ORDERED: FEOSOL 325 MG PO SCH (13:00)
[2021-12-13] MEDS ORDERED: Zocor 10MG PO SCH (13:00)
[2021-12-13] MEDS ORDERED: Toprol-Xl 25MG Tablets PO SCH (13:00)
[2021-12-13] MEDS ORDERED: Amaryl 2 MG PO SCH (13:00)
[2021-12-13] MEDS: Sodium Chloride 0.9% 1000 ML 1,000 ML IV SCH (13:28)
[2021-12-13] MEDS ORDERED: Aldactone 25 MG PO SCH (17:00)
[2021-12-14] MEDS ORDERED: NON-FORMULARY ITEM (Atorvastatin Calcium [Atorvastatin Calcium] 10 MG Tablet) PO SCH (10:00)
[2021-12-14] MEDS ORDERED: NON-FORMULARY ITEM (Lisinopril [Zestril] 2.5 MG Tablet) PO SCH (10:00)
[2021-12-14] MEDS ORDERED: NON-FORMULARY ITEM (Metoprolol Succinate 25 MG Tab.Er.24h) PO SCH (10:00)
--- NOTE | 2021-12-15 07:43 | PCM.DS ---
Discharge Summary Date of Admission: 12/12/21 15:27 Admitting Physician: CAROLYN TAMEZ Primary Care Provider: CAROLYN TAMEZ Allergies Allergies Penicillins Allergy (Verified 11/28/21 10:49) Hospital Summary - Hospital Course Hospital Course: Chief Complaint Diagnosis Rectal Bleed Allergies Allergy/AdvReac Type Severity Reaction Status Date / Time Penicillins Allergy Verified 11/28/21 10:49 Home Medications Medication Instructions Recorded Confirmed Last Taken Type Phenyleph/Mineral Oil/Petrolat 28 gm UD #1 ea 12/13/21 Unknown Rx [Preparation H Ointment] Current Medications Discontinued Medications Generic Name Dose Route Start Last Admin Trade Name Freq PRN Reason Stop Dose Admin Docusate Sodium 100 mg 12/13/21 13:00 12/13/21 14:06 Docusate Sodium 100 Mg Capsule PO 01/12/22 12:59 Not Given BID RICARDO Ferrous Sulfate 325 mg 12/13/21 13:00 12/13/21 14:05 Ferrous Sulfate 325 Mg Tablet PO 01/12/22 12:59 Not Given DAILY RICARDO Furosemide 20 mg 12/12/21 14:15 12/12/21 20:53 Furosemide 20 Mg/Vial IV 01/11/22 14:14 20 mg BETWEEN UNITS RICARDO Administration Glimepiride 1 mg 12/13/21 13:00 12/13/21 14:04 Glimepiride 2 Mg Tablet PO 01/12/22 12:59 Not Given BREAKFAST RICARDO Sodium Chloride 1,000 mls @ 50 mls/hr 12/12/21 14:15 12/13/21 13:28 Sodium Chloride 0.9% 1000 Ml IV 01/11/22 14:14 50 mls/hr .Q20H RICARDO Administration Lisinopril 2.5 mg 12/13/21 13:00 12/13/21 14:05 Lisinopril 5 Mg Tablet PO 01/12/22 12:59 Not Given DAILY RICARDO Metoprolol Succinate 25 mg 12/13/21 13:00 12/13/21 14:05 Metoprolol Succinate 25 Mg Xl Tab PO 01/12/22 12:59 Not Given DAILY RICARDO Pantoprazole Sodium 40 mg 12/12/21 16:00 12/13/21 09:41 Pantoprazole 40 Mg Vial IV 01/11/22 15:59 40 mg Q24H10 RICARDO Administration Simvastatin 10 mg 12/13/21 13:00 12/13/21 14:05 Simvastatin 10 Mg Tablet PO 01/12/22 12:59 Not Given DAILY RICARDO Spironolactone 25 mg 12/13/21 17:00 Spironolactone 25 Mg Tablet PO 01/12/22 16:59 BID DIURETIC RICARDO Intake & Output (Last 24 hours) 12/12/21 12/13/21 12/14/21 12/15/21 11:59 11:59 11:59 11:59 Intake Total 2247 420 Output Total 1675 Balance 572 420 Weight 52.6 kg 52.6 kg - Vitals & Intake/Output Vital Signs: Vital Signs Temperature 97.5 F 12/13/21 12:00 Pulse Rate 93 H 12/13/21 12:00 Respiratory Rate 21 12/13/21 12:00 Blood Pressure 105/57 12/13/21 12:00 O2 Sat by Pulse Oximetry 100 12/13/21 12:00 Intake & Output: Intake & Output 12/12/21 12/13/21 12/14/21 12/15/21 11:59 11:59 11:59 11:59 Intake Total 2247 420 Output Total 1675 Balance 572 420 Weight 52.6 kg 52.6 kg - Lab Result Diagrams: 12/13/21 05:20 12/13/21 05:20 Discharge Exam General Appearance: no apparent distress, alert Neurologic Exam: alert, oriented x 3, cooperative, normal mood/affect, nml cerebellar function, sensation nml, No motor deficits Eye Exam: PERRL, EOMI, eyes nml inspection Ears, Nose, Throat Exam: normal ENT inspection, pharynx normal, moist mucous membranes Neck Exam: normal inspection, non-tender, supple, full range of motion Respiratory Exam: diminished breath sounds, No respiratory distress Cardiovascular Exam: regular rate/rhythm, normal heart sounds Gastrointestinal/Abdomen Exam: soft, No tenderness, No mass Male Genitalia Exam: deferred Rectal Exam: deferred Back Exam: normal inspection, normal range of motion, No CVA tenderness, No vertebral tenderness Extremity Exam: normal inspection, normal range of motion Skin Exam: normal color, warm, dry Final Diagnosis/Problem List - Final Discharge Diagnosis/Problem (1) Rectal bleeding Status: Resolved Code(s): K62.5 - HEMORRHAGE OF ANUS AND RECTUM (2) Generalized weakness Status: Acute Code(s): R53.1 - WEAKNESS (3) Hemorrhoids Status: Acute Assessment & Plan: Patient has been repeatedly advised for hemmorhoidectomy but patient has beed adamantly refusing. He is also advised by surgeon that surgery will help him, stop bleeding and will avoid blood transfusion which is very much short supply. Patient is still refusing. He agreed to go home with hospice Code(s): K64.9 - UNSPECIFIED HEMORRHOIDS - Discharge Discharge Date: 12/13/21 Disposition: Hospice @ [facility] Condition: Stable Prescriptions: New Phenyleph/Mineral Oil/Petrolat [Preparation H Ointment] 28 gm RC UD #1 ea Continue Glimepiride 2 mg [Amaryl 2 MG] 1 mg PO BREAKFAST #30 tablet Docusate Sodium 50 mg/5 ml [COLACE Liquid 50 MG/5 ML] 100 mg PO BID ml Ferrous Sulfate 325 mg [Feosol 325 mg] 325 mg PO DAILY tablet Spironolactone 25 mg PO BID #30 tablet lisinopriL [Zestril] 2.5 mg PO DAILY #30 tablet Atorvastatin Calcium 10 mg PO DAILY Metoprolol Succinate 25 mg PO DAILY Discontinued Apixaban [Eliquis 2.5 mg Tablet] 2.5 mg PO BID 30 Days tablet Instructions: Hemorrhoids (DC), Bloody Stools, Adult (DC) Additional Instructions: [facility] WILL COME TO YOUR HOUSE THIS EVENING TO ADMIT YOU TO [facility]. YOU MAY REACH THEM AT [phone].
== END 2021-12-13 15:31 | disposition hospice, home (50) ==
LOC: ED 11:30 → MED SURG 15:27
PROVIDERS: ADMIT General Practice; ATTEND General Practice
DX: K62.5 Hemorrhage of anus and rectum (principal); R53.1 Weakness; K64.9 Unspecified hemorrhoids; E11.9 Type 2 diabetes mellitus without complications; Z79.01 Long term (current) use of anticoagulants; Z79.899 Other long term (current) drug therapy; Z20.828 Contact with and (suspected) exposure to other viral communicable diseases
CPT/HCPCS: 0241U; 36000; 36415; 36430; 80053; 82947; 84484; 85014; 85018; 85025; 85610; 85730; 86850; 86900; 86901; 86922; 99285; G0378; P9016; J1940

== ENCOUNTER 2022-01-18 21:12 | Observation (INO) | payer MEDICARE ==
[2022-01-18] MEDS ORDERED: Sodium Chloride 0.9% 1000 ML 1,000 ML IV SCH (21:30)
[2022-01-18 21:50] LABS: Basophil (Absolute #) 0.12 (0-0.4); Eosinophil % 1.8 % (0.00-5.0); Hematocrit 21.2 % (42-50); Lymphocyte (Absolute #) 1.72 (1.0-4.6); Lymphocytes % 15.8 % (24.0-44.0); Mean Cell Volume 78.2 fl (78-100); Mean Corpuscular Hemoglobin 22.5 pg (26-32); Mean Corpuscular Hgb Concent. 28.8 g/dl (32-36); Mean Platelet Volume 9.4 fl (7.5-11.0); Monocyte (Absolute #) 1.02 (0.0-1.3); Monocytes % 9.4 % (0.0-12.0); Neutrophil % 71.9 % (36.0-66.0); Platelet Count 878 K/mm3 (150-450); Red Blood Count 2.71 M/mm3 (4.1-5.6); Red Cell Distribution Width 19.6 % (11.5-14.0); White Blood Count 10.9 K/mm3 (4.0-10.5)
[2022-01-18 22:02] LABS: ALBUMIN 4.1 g/dL (3.5-5.0); BILIRUBIN,TOTAL 0.5 mg/dL (0.2-1.3); Calcium 8.9 mg/dL (8.4-10.2); Creatinine 1 1.41 mg/dL (0.66-1.25); EST GLOMERULAR FILTRATION RATE 55.1 ML/MIN; Potassium 4.2 mmol/L (3.5-5.1); Total Protein 7.1 g/dL (6.3-8.2)
--- NOTE | 2022-01-18 22:04 | ERPHSYRPT ---
- History of Present Illness Time Seen by Provider: 01/18/22 21:58 Source: patient Exam Limitations: no limitations Patient Subjective Stated Complaint: "I am have been pooping blood." Triage Nursing Assessment: Pt c/o of blood in stool for unknown amount of time, pt has had multiple blood transfusions in the past, pt denies fever nausea, vomiting, or abd pain at this time. Pt's last bowel movement was 01/18/2022 Physician History: "I am have been pooping blood." Patient is 56-year-old male with significant past medical history of prolapsed hemorrhoid which have been actively bleeding off and on for last few months which has been causing multiple episode of bleeding since last 6 months. Patient has been referred to surgery for 3 times and patient has refused for further surgical intervention. Patient has been informed that hemorrhoid surgery cannot cure his problem with any he will not need more blood transfusion as we have a shortage of blood nowadays. But patient has been adamant and has not been negative for surgery. He started having a large amount of fresh red blood today and so he was brought into the emergency room. Patient is feeling very weak lethargic. Due to patient denial for further intervention and patient had opted for comfort measures patient was put on hospice care. Timing/Duration: today Severity: severe Associated Symptoms: weakness Allergies/Adverse Reactions: Penicillins Allergy (Verified 11/28/21 10:49) Home Medications: Atorvastatin Calcium 10 mg PO DAILY 11/28/21 [History] Metoprolol Succinate 25 mg PO DAILY 11/28/21 [History] Hx Tetanus, Diphtheria Vaccination/Date Given: No () Hx Influenza Vaccination/Date Given: No Hx Pneumococcal Vaccination/Date Given: No Travel Risk - International Travel Have you traveled outside of the country in past 3 weeks: No - Coronavirus Screening Are you exhibiting any of the following symptoms?: No Close contact with a COVID-19 positive Pt in past 14-21 Days: No - Vaccine Status Have you recieved a Covid-19 vaccination: No [employer]: [employer] - Vaccination Dates Date of 2cond Vaccination (if applicable): unknown - Review of Systems Constitutional: Lethargy Eyes: No Symptoms Ears, Nose, & Throat: No Symptoms Respiratory: No Symptoms Cardiac: Orthopnea Abdominal/Gastrointestinal: Hematochezia Genitourinary Symptoms: No Symptoms Musculoskeletal: No Symptoms Skin: No Symptoms - Past Medical History Pertinent Past Medical History: Yes Neurological History: Other ENT History: No Pertinent History Cardiac History: No Pertinent History Respiratory History: No Pertinent History Endocrine Medical History: Diabetes Type II Musculoskeletal History: Arthritis GI Medical History: No Pertinent History History: No Pertinent History Psycho-Social History: No Pertinent History Male Reproductive Disorders: No Pertinent History Other Medical History: hx of head injury 8 yrs ago. congenital neck deformity. - Past Surgical History Past Surgical History: Yes Neuro Surgical History: Other Cardiac: No Pertinent History Respiratory: No Pertinent History Gastrointestinal: No Pertinent History Genitourinary: Kidney Surgery Musculoskeletal: Joint Replacement Male Surgical History: No Pertinent History Other Surgical History: unknown - Social History Smoking Status: Never smoker Exposure to second hand smoke: No Drug Use: none Patient Lives Alone: Yes - Nursing Vital Signs Nursing Vital Signs: Initial Vital Signs Temperature 99.7 F 01/18/22 21:20 Pulse Rate 111 H 01/18/22 21:20 Respiratory Rate 16 01/18/22 21:20 Blood Pressure 121/69 01/18/22 21:20 O2 Sat by Pulse Oximetry 99 01/18/22 21:20 Pain Scale Pain Intensity 0 - Physical Exam General Appearance: moderate distress Eye Exam: PERRL/EOMI, eyes nml inspection Ears, Nose, Throat Exam: normal ENT inspection, TMs normal, pharynx normal, moist mucous membranes Neck Exam: normal inspection, non-tender, supple, full range of motion Respiratory Exam: normal breath sounds, lungs clear, No respiratory distress Cardiovascular Exam: regular rate/rhythm, normal heart sounds, normal peripheral pulses Gastrointestinal/Abdomen Exam: soft, normal bowel sounds, other (large prolapsed hemorrhoid with active oozing), No tenderness, No mass Back Exam: normal inspection, normal range of motion, No CVA tenderness, No vertebral tenderness Extremity Exam: normal inspection, normal range of motion, pelvis stable Neurologic Exam: alert, oriented x 3, cooperative, normal mood/affect, nml cerebellar function, nml station & gait, sensation nml, No motor deficits Skin Exam: normal color, warm, dry, No rash Lymphatic Exam: No adenopathy SpO2: 99 - Course Nursing assessment & vital signs reviewed: Yes Ordered Tests: Active Orders 24 hr Category Date Time Status IV Insertion STAT Care 01/18/22 21:37 Active CBC W DIFF Stat Lab 01/18/22 21:30 Received CMP Stat Lab 01/18/22 21:30 Received Medication Summary Generic Name Dose Route Start Last Admin Trade Name Albaro PRN Reason Stop Dose Admin Sodium Chloride 1,000 mls @ 50 mls/hr 01/18/22 21:30 01/18/22 21:37 Sodium Chloride 0.9% 1000 Ml IV 02/17/22 21:29 50 mls/hr .Q20H RICARDO Administration Lab/Rad Data: Laboratory Results 01/18/22 Range/Units 21:40 Crossmatch Pending - Progress Progress: unchanged Discussed with : Waqar Will see patient in: hospital (observation) (for blood transfusion) - Departure Departure Disposition: Observation Clinical Impression: Chronic lower GI bleeding Hemorrhoids Qualifiers: Hemorrhoid type: fourth degree Qualified Code(s): K64.3 - Fourth degree hemorrhoids Condition: Fair Critical Care Time: Yes Critical Care Time(excluding separately billable procedures): Critical 30-74 mins Referrals: CAROLYN TAMEZ MD [Primary Care Provider] - Follow up/PCP as directed Instructions: Hemorrhoid Banding
[2022-01-18 22:14] LABS: Hemoglobin 6.1 gm/dl (12.5-18.0)
[2022-01-18 22:37] LABS: INFLUENZA A NEGATIVE (NEGATIVE); INFLUENZA B NEGATIVE (NEGATIVE); RESPIRATORY SYNCTIAL VIRUS NEGATIVE (Negative); SARS-CoV-2 Xpert Express NEGATIVE (NEGATIVE)
[2022-01-18 23:21] LABS: ABO TYPING AB
[2022-01-18 23:22] LABS: Antibody Screen NEGATIVE (NEGATIVE); RH TYPING POSITIVE
[2022-01-18 23:26] LABS: CROSS MATCH (PRBC) COMPATIBLE (COMPATIBLE)
[2022-01-19 01:23] LABS: Slide Review 1 YES
[2022-01-19] MEDS: Lasix 40 MG/4 ML IV SCH ×2 (02:12→05:54)
[2022-01-19 05:21] LABS: Hematocrit 30.7 % (42-50); Hemoglobin 9.5 gm/dl (12.5-18.0); Mean Cell Volume 79.5 fl (78-100); Mean Corpuscular Hemoglobin 24.6 pg (26-32); Mean Corpuscular Hgb Concent. 30.9 g/dl (32-36); Mean Platelet Volume 9.2 fl (7.5-11.0); Platelet Count 753 K/mm3 (150-450); Red Blood Count 3.86 M/mm3 (4.1-5.6); Red Cell Distribution Width 17.6 % (11.5-14.0); White Blood Count 12.3 K/mm3 (4.0-10.5)
--- NOTE | 2022-01-19 05:29 | PCM.SSS ---
History of Present Illness - Chief Complaint Chief Complaint: blood in stool for 1 day History of Present Illness: is a 56 year old male.with significant past medical history of prola psed hemorrhoid which have been actively bleeding off and on for last few months which has been causing multiple episode of bleeding since last 6 months. Patient has been referred to surgery for 3 times and patient has refused for further surgical intervention. Patient has been informed that hemorrhoid surgery cannot cure his problem with any he will not need more blood transfusion as we have a shortage of blood nowadays. But patient has been adamant and has not been negative for surgery. He started having a large amount of fresh red blood today and so he was brought into the emergency room. Patient is feeling very weak lethargic. Due to patient denial for further intervention and patient had opted for comfort measures patient was put on hospice care. - Review of Systems Constitutional: No Fever, No Chills Eyes: No Symptoms Ears, Nose, & Throat: No Symptoms Respiratory: No Cough, No Short Of Breath Cardiac: No Chest Pain, No Edema, No Syncope Abdominal/Gastrointestinal: Hematochezia, No Abdominal Pain, No Nausea, No Vomiting, No Diarrhea Genitourinary Symptoms: No Dysuria Musculoskeletal: No Back Pain, No Neck Pain Skin: No Rash Neurological: No Dizziness, No Focal Weakness, No Sensory Changes Psychological: No Symptoms Endocrine: No Symptoms Hematologic/Lymphatic: No Symptoms Immunological/Allergic: No Symptoms Medications & Allergies Home Medications: Home Medication List Docusate Sodium 50 mg/5 ml [COLACE Liquid 50 MG/5 ML] 100 mg PO BID ml 09/08/21 [Rx Confirmed 01/18/22] Ferrous Sulfate 325 mg [Feosol 325 mg] 325 mg PO DAILY tablet 09/08/21 [Rx Confirmed 01/18/22] Glimepiride 2 mg [Amaryl 2 MG] 1 mg PO BREAKFAST #30 tablet 09/08/21 [Rx Confirmed 01/18/22] Spironolactone 25 mg PO BID #30 tablet 09/08/21 [Rx Confirmed 01/18/22] lisinopriL [Zestril] 2.5 mg PO DAILY #30 tablet 09/08/21 [Rx Confirmed 01/18/22] Atorvastatin Calcium 10 mg PO DAILY 11/28/21 [History Confirmed 01/18/22] Metoprolol Succinate 25 mg PO DAILY 11/28/21 [History Confirmed 01/18/22] Phenyleph/Mineral Oil/Petrolat [Preparation H Ointment] 28 gm RC UD #1 ea [Rx Confirmed 01/18/22] Hydrocodone/Acetaminophen [Hydrocodone-Acetamn 7.5-325/15 ] 10 ml PO Q6H PRN PRN 01/18/22 [History Confirmed 01/18/22] Allergies/Adverse Reactions: Allergies Allergy/AdvReac Type Severity Reaction Status Date / Time Penicillins Allergy Verified 11/28/21 10:49 - Past Medical History Past Medical History: Yes Neurological History: Other ENT History: No Pertinent History Cardiac History: No Pertinent History Respiratory History: No Pertinent History Endocrine Medical History: Diabetes Type II Musculoskelatal History: Arthritis GI Medical History: No Pertinent History History: No Pertinent History Pyscho-Social History: No Pertinent History Male Reproductive Disorders: No Pertinent History Comment: hx of head injury 8 yrs ago. congenital neck deformity. - Past Surgical History Past Surgical History: Yes Neuro Surgical History: Other Cardiac History: No Pertinent History Respiratory Surgery: No Pertinent History GI Surgical History: No Pertinent History Genitourinary Surgical Hx: Kidney Surgery Musculskeletal Surgical Hx: Joint Replacement Male Surgical History: No Pertinent History Other Surgical History: unknown - Social History Smoking Status: Never smoker Exposure to second hand smoke: No Alcohol: Occasionally Drug Use: none - Physical Exam Vital Signs: Vital Signs - 24 hr Temp Pulse Resp BP Pulse Ox 01/19/22 04:10 98.0 F 111 H 18 119/68 97 01/18/22 23:58 98.2 F 105 H 18 110/57 100 01/18/22 22:19 99 01/18/22 22:15 100 H 16 113/65 98 01/18/22 21:20 99.7 F 111 H 16 121/69 99 General Appearance: no apparent distress, alert Neurologic Exam: alert, oriented x 3, cooperative, normal mood/affect, nml cerebellar function, nml station & gait, sensation nml, No motor deficits Eye Exam: PERRL/EOMI, eyes nml inspection Ears, Nose, Throat Exam: normal ENT inspection, TMs normal, pharynx normal, moist mucous membranes Neck Exam: normal inspection, non-tender, supple, full range of motion Respiratory Exam: normal breath sounds, lungs clear, No respiratory distress Cardiovascular Exam: regular rate/rhythm, normal heart sounds, normal peripheral pulses Gastrointestinal/Abdomen Exam: soft, normal bowel sounds, No tenderness, No mass Back Exam: normal inspection, normal range of motion, No CVA tenderness, No vertebral tenderness Extremity Exam: normal inspection, normal range of motion, pelvis stable Skin Exam: normal color, warm, dry, No rash Lymphatic Exam: No adenopathy Results - Labs Lab/Micro Results: Lab Results-Last 24 Hours 01/18/22 01/18/22 01/18/22 Range/Units 21:30 21:30 21:40 WBC 10.9 H (4.0-10.5) K/mm3 RBC 2.71 L (4.1-5.6) M/mm3 Hgb 6.1 L* (12.5-18.0) gm/dl Hct 21.2 L (42-50) % MCV 78.2 (78-100) fl MCH 22.5 L (26-32) pg MCHC 28.8 L (32-36) g/dl RDW 19.6 H (11.5-14.0) % Plt Count 878 H (150-450) K/mm3 MPV 9.4 (7.5-11.0) fl Gran % 71.9 H (36.0-66.0) % Eos # (Auto) 0.20 (0-0.5) Absolute Lymphs (auto) 1.72 (1.0-4.6) Absolute Monos (auto) 1.02 (0.0-1.3) Lymphocytes % 15.8 L (24.0-44.0) % Monocytes % 9.4 (0.0-12.0) % Eosinophils % 1.8 (0.00-5.0) % Basophils % 1.1 (0.0-0.4) % Absolute Granulocytes 7.80 H (1.4-6.9) Basophils # 0.12 (0-0.4) Sodium 131 L (137-145) mmol/L Potassium 4.2 (3.5-5.1) mmol/L Chloride 95 L (98-107) mmol/L Carbon Dioxide 24 (22-30) mmol/L Anion Gap 16.0 H (5-15) MEQ/L BUN 10 (9-20) mg/dL Creatinine 1.41 H (0.66-1.25) mg/dL Estimated GFR 55.1 ML/MIN Glucose 269 H (74-106) mg/dL Calcium 8.9 (8.4-10.2) mg/dL Total Bilirubin 0.50 (0.2-1.3) mg/dL AST 25 (17-59) U/L ALT 11 (0-50) U/L Alkaline Phosphatase 113 (38-126) U/L Serum Total Protein 7.1 (6.3-8.2) g/dL Albumin 4.1 (3.5-5.0) g/dL Influenza Type A Ag (NEGATIVE) Influenza Type B Ag (NEGATIVE) RSV (PCR) (Negative) SARS-CoV-2 (PCR) (NEGATIVE) Slides for Path Review YES ABO Group AB Rh Factor POSITIVE Antibody Screen NEGATIVE (NEGATIVE) Crossmatch (COMPATIBLE) 01/18/22 01/18/22 01/18/22 Range/Units 21:40 21:40 21:58 WBC (4.0-10.5) K/mm3 RBC (4.1-5.6) M/mm3 Hgb (12.5-18.0) gm/dl Hct (42-50) % MCV (78-100) fl MCH (26-32) pg MCHC (32-36) g/dl RDW (11.5-14.0) % Plt Count (150-450) K/mm3 MPV (7.5-11.0) fl Gran % (36.0-66.0) % Eos # (Auto) (0-0.5) Absolute Lymphs (auto) (1.0-4.6) Absolute Monos (auto) (0.0-1.3) Lymphocytes % (24.0-44.0) % Monocytes % (0.0-12.0) % Eosinophils % (0.00-5.0) % Basophils % (0.0-0.4) % Absolute Granulocytes (1.4-6.9) Basophils # (0-0.4) Sodium (137-145) mmol/L Potassium (3.5-5.1) mmol/L Chloride (98-107) mmol/L Carbon Dioxide (22-30) mmol/L Anion Gap (5-15) MEQ/L BUN (9-20) mg/dL Creatinine (0.66-1.25) mg/dL Estimated GFR ML/MIN Glucose (74-106) mg/dL Calcium (8.4-10.2) mg/dL Total Bilirubin (0.2-1.3) mg/dL AST (17-59) U/L ALT (0-50) U/L Alkaline Phosphatase (38-126) U/L Serum Total Protein (6.3-8.2) g/dL Albumin (3.5-5.0) g/dL Influenza Type A Ag NEGATIVE (NEGATIVE) Influenza Type B Ag NEGATIVE (NEGATIVE) RSV (PCR) NEGATIVE (Negative) SARS-CoV-2 (PCR) NEGATIVE (NEGATIVE) Slides for Path Review ABO Group Rh Factor Antibody Screen (NEGATIVE) Crossmatch COMPATIBLE COMPATIBLE (COMPATIBLE) Assessment/Plan (1) Chronic lower GI bleeding Current Visit: Yes Status: Acute Assessment & Plan: Chief Complaint Diagnosis blood in stool for 1 day Allergies Allergy/AdvReac Type Severity Reaction Status Date / Time Penicillins Allergy Verified 11/28/21 10:49 Vital Signs (Last 24 hours) Temp Pulse Resp BP Pulse Ox 01/19/22 04:10 98.0 F 111 H 18 119/68 97 01/18/22 23:58 98.2 F 105 H 18 110/57 100 01/18/22 22:19 99 01/18/22 22:15 100 H 16 113/65 98 01/18/22 21:20 99.7 F 111 H 16 121/69 99 Home Medications Medication Instructions Recorded Confirmed Last Taken Type Hydrocodone/Acetaminophen 10 ml PO Q6H PRN PRN 01/18/22 01/18/22 Unknown History [Hydrocodone-Acetamn 7.5-325/15 ] Current Medications Generic Name Dose Route Start Last Admin Trade Name Freq PRN Reason Stop Dose Admin Furosemide 40 mg 01/18/22 22:30 01/19/22 02:12 Furosemide 40 Mg/4 Ml Vial IV 02/17/22 22:29 40 mg AFTER EA UNIT BLOOD RICARDO Administration Sodium Chloride 1,000 mls @ 50 mls/hr 01/18/22 21:30 01/18/22 21:37 Sodium Chloride 0.9% 1000 Ml IV 02/17/22 21:29 50 mls/hr .Q20H RICARDO Administration Intake & Output (Last 24 hours) 01/16/22 01/17/22 01/18/22 01/19/22 11:59 11:59 11:59 11:59 Output Total 1050 Balance -1050 Weight 54.7 kg Laboratory Results (Last 24 hours) 01/19/22 01/18/22 01/18/22 05:00 21:58 21:40 WBC 12.3 H RBC 3.86 L Hgb 9.5 L D Hct 30.7 L MCV 79.5 MCH 24.6 L MCHC 30.9 L RDW 17.6 H Plt Count 753 H MPV 9.2 Gran % Eos # (Auto) Absolute Lymphs (auto) Absolute Monos (auto) Lymphocytes % Monocytes % Eosinophils % Basophils % Absolute Granulocytes Basophils # Sodium Potassium Chloride Carbon Dioxide Anion Gap BUN Creatinine Estimated GFR Glucose Calcium Total Bilirubin AST ALT Alkaline Phosphatase Serum Total Protein Albumin Influenza Type A Ag NEGATIVE Influenza Type B Ag NEGATIVE RSV (PCR) NEGATIVE SARS-CoV-2 (PCR) NEGATIVE Slides for Path Review ABO Group Rh Factor Antibody Screen Crossmatch COMPATIBLE 01/18/22 01/18/22 01/18/22 21:40 21:40 21:30 WBC RBC Hgb Hct MCV MCH MCHC RDW Plt Count MPV Gran % Eos # (Auto) Absolute Lymphs (auto) Absolute Monos (auto) Lymphocytes % Monocytes % Eosinophils % Basophils % Absolute Granulocytes Basophils # Sodium 131 L Potassium 4.2 Chloride 95 L Carbon Dioxide 24 Anion Gap 16.0 H BUN 10 Creatinine 1.41 H Estimated GFR 55.1 Glucose 269 H Calcium 8.9 Total Bilirubin 0.50 AST 25 ALT 11 Alkaline Phosphatase 113 Serum Total Protein 7.1 Albumin 4.1 Influenza Type A Ag Influenza Type B Ag RSV (PCR) SARS-CoV-2 (PCR) Slides for Path Review ABO Group AB Rh Factor POSITIVE Antibody Screen NEGATIVE Crossmatch COMPATIBLE 01/18/22 21:30 WBC 10.9 H RBC 2.71 L Hgb 6.1 L* Hct 21.2 L MCV 78.2 MCH 22.5 L MCHC 28.8 L RDW 19.6 H Plt Count 878 H MPV 9.4 Gran % 71.9 H Eos # (Auto) 0.20 Absolute Lymphs (auto) 1.72 Absolute Monos (auto) 1.02 Lymphocytes % 15.8 L Monocytes % 9.4 Eosinophils % 1.8 Basophils % 1.1 Absolute Granulocytes 7.80 H Basophils # 0.12 Sodium Potassium Chloride Carbon Dioxide Anion Gap BUN Creatinine Estimated GFR Glucose Calcium Total Bilirubin AST ALT Alkaline Phosphatase Serum Total Protein Albumin Influenza Type A Ag Influenza Type B Ag RSV (PCR) SARS-CoV-2 (PCR) Slides for Path Review YES ABO Group Rh Factor Antibody Screen Crossmatch Orders (Last 24 hours) Category Date Time Status Up [place] TOLERATED Activity 01/18/22 22:17 Completed Consent,Obtain ROUTINE Care 01/18/22 22:17 Completed IV Insertion STAT Care 01/18/22 21:[address] in Observation ROUTINE Care 01/18/22 22:17 Completed Milk Pickup Driver/Discharge Plan ROUTINE Cons 01/19/22 00:20 Active Heart-Healthy Diet Diet 01/19/22 Breakfast Active BLOOD COMPONENT REQUEST Stat Lab 01/18/22 21:40 Completed BMP Routine Lab 01/19/22 05:00 Received CBC Routine Lab 01/19/22 05:00 Completed CBC W DIFF Stat Lab 01/18/22 21:30 Completed CMP Stat Lab 01/18/22 21:30 Completed PREALBUMIN Routine Lab 01/19/22 05:00 Received TYPE AND SCREEN Stat Lab 01/18/22 21:40 Completed Furosemide 40 mg/4 ml [Lasix 40 MG/4 ML] Med 01/18/22 22:30 Ordered 40 mg IV AFTER EA UNIT BLOOD NaCl 0.9% 1000 ml [Sodium Chloride 0.9% 1000 ML] 1,000 Med 01/18/22 21:30 Ordered ml IV 50 mls/hr Code(s): K92.2 - GASTROINTESTINAL HEMORRHAGE, UNSPECIFIED (2) Hemorrhoids Current Visit: Yes Status: Acute Qualifiers: Hemorrhoid type: fourth degree Qualified Code(s): K64.3 - Fourth degree hemorrhoids Code(s): K64.9 - UNSPECIFIED HEMORRHOIDS Hospital Summary - Hospital Course Hospital Course: Chief Complaint Diagnosis blood in stool for 1 day Allergies Allergy/AdvReac Type Severity Reaction Status Date / Time Penicillins Allergy Verified 11/28/21 10:49 Vital Signs (Last 24 hours) Temp Pulse Resp BP Pulse Ox 01/19/22 04:10 98.0 F 111 H 18 119/68 97 01/18/22 23:58 98.2 F 105 H 18 110/57 100 01/18/22 22:19 99 01/18/22 22:15 100 H 16 113/65 98 01/18/22 21:20 99.7 F 111 H 16 121/69 99 Home Medications Medication Instructions Recorded Confirmed Last Taken Type Hydrocodone/Acetaminophen 10 ml PO Q6H PRN PRN 01/18/22 01/18/22 Unknown History [Hydrocodone-Acetamn 7.5-325/15 ] Current Medications Generic Name Dose Route Start Last Admin Trade Name [place]bar[place] PRN Reason Stop Dose Admin Furosemide 40 mg 01/18/22 22:30 01/19/22 02:12 Furosemide 40 Mg/4 Ml Vial IV 02/17/22 22:29 40 mg AFTER EA UNIT BLOOD RICARDO Administration Sodium Chloride 1,000 mls @ 50 mls/hr 01/18/22 21:30 01/18/22 21:37 Sodium Chloride 0.9% 1000 Ml IV 02/17/22 21:29 50 mls/hr .Q20H RICARDO Administration Intake & Output (Last 24 hours) 01/16/22 01/17/22 01/18/22 01/19/22 11:59 11:59 11:59 11:59 Output Total 1050 Balance -1050 Weight 54.7 kg Laboratory Results (Last 24 hours) 01/19/22 01/18/22 01/18/22 05:00 21:58 21:40 WBC 12.3 H RBC 3.86 L Hgb 9.5 L D Hct 30.7 L MCV 79.5 MCH 24.6 L MCHC 30.9 L RDW 17.6 H Plt Count 753 H MPV 9.2 Gran % Eos # (Auto) Absolute Lymphs (auto) Absolute Monos (auto) Lymphocytes % Monocytes % Eosinophils % Basophils % Absolute Granulocytes Basophils # Sodium Potassium Chloride Carbon Dioxide Anion Gap BUN Creatinine Estimated GFR Glucose Calcium Total Bilirubin AST ALT Alkaline Phosphatase Serum Total Protein Albumin Influenza Type A Ag NEGATIVE Influenza Type B Ag NEGATIVE RSV (PCR) NEGATIVE SARS-CoV-2 (PCR) NEGATIVE Slides for Path Review ABO Group Rh Factor Antibody Screen Crossmatch COMPATIBLE 01/18/22 01/18/22 01/18/22 21:40 21:40 21:30 WBC RBC Hgb Hct MCV MCH MCHC RDW Plt Count MPV Gran % Eos # (Auto) Absolute Lymphs (auto) Absolute Monos (auto) Lymphocytes % Monocytes % Eosinophils % Basophils % Absolute Granulocytes Basophils # Sodium 131 L Potassium 4.2 Chloride 95 L Carbon Dioxide 24 Anion Gap 16.0 H BUN 10 Creatinine 1.41 H Estimated GFR 55.1 Glucose 269 H Calcium 8.9 Total Bilirubin 0.50 AST 25 ALT 11 Alkaline Phosphatase 113 Serum Total Protein 7.1 Albumin 4.1 Influenza Type A Ag Influenza Type B Ag RSV (PCR) SARS-CoV-2 (PCR) Slides for Path Review ABO Group AB Rh Factor POSITIVE Antibody Screen NEGATIVE Crossmatch COMPATIBLE 01/18/22 21:30 WBC 10.9 H RBC 2.71 L Hgb 6.1 L* Hct 21.2 L MCV 78.2 MCH 22.5 L MCHC 28.8 L RDW 19.6 H Plt Count 878 H MPV 9.4 Gran % 71.9 H Eos # (Auto) 0.20 Absolute Lymphs (auto) 1.72 Absolute Monos (auto) 1.02 Lymphocytes % 15.8 L Monocytes % 9.4 Eosinophils % 1.8 Basophils % 1.1 Absolute Granulocytes 7.80 H Basophils # 0.12 Sodium Potassium Chloride Carbon Dioxide Anion Gap BUN Creatinine Estimated GFR Glucose Calcium Total Bilirubin AST ALT Alkaline Phosphatase Serum Total Protein Albumin Influenza Type A Ag Influenza Type B Ag RSV (PCR) SARS-CoV-2 (PCR) Slides for Path Review YES ABO Group Rh Factor Antibody Screen Crossmatch Orders (Last 24 hours) Category Date Time Status Up [place] TOLERATED Activity 01/18/22 22:17 Completed Consent,Obtain ROUTINE Care 01/18/22 22:17 Completed IV Insertion STAT Care 01/18/22 21:[address] in Observation ROUTINE Care 01/18/22 22:17 Completed Milk Pickup Driver/Discharge Plan ROUTINE Cons 01/19/22 00:20 Active Heart-Healthy Diet Diet 01/19/22 Breakfast Active BLOOD COMPONENT REQUEST Stat Lab 01/18/22 21:40 Completed BMP Routine Lab 01/19/22 05:00 Received CBC Routine Lab 01/19/22 05:00 Completed CBC W DIFF Stat Lab 01/18/22 21:30 Completed CMP Stat Lab 01/18/22 21:30 Completed PREALBUMIN Routine Lab 01/19/22 05:00 Received TYPE AND SCREEN Stat Lab 01/18/22 21:40 Completed Furosemide 40 mg/4 ml [Lasix 40 MG/4 ML] Med 01/18/22 22:30 Ordered 40 mg IV AFTER EA UNIT BLOOD NaCl 0.9% 1000 ml [Sodium Chloride 0.9% 1000 ML] 1,000 Med 01/18/22 21:30 Ordered ml IV 50 mls/hr - Vitals & Intake/Output Vital Signs: Vital Signs Temperature 98.0 F 01/19/22 04:10 Pulse Rate 111 H 01/19/22 04:10 Respiratory Rate 18 01/19/22 04:10 Blood Pressure 119/68 01/19/22 04:10 O2 Sat by Pulse Oximetry 97 01/19/22 04:10 Intake & Output: Intake & Output 01/16/22 01/17/22 01/18/22 01/19/22 11:59 11:59 11:59 11:59 Output Total 1050 Balance -1050 Weight 54.7 kg - Lab Result Diagrams: 01/19/22 05:00 01/19/22 05:00 Lab Results-Last 24 Hrs: Lab Results-Last 24 Hours 01/18/22 01/18/22 01/18/22 Range/Units 21:30 21:30 21:40 WBC 10.9 H (4.0-10.5) K/mm3 RBC 2.71 L (4.1-5.6) M/mm3 Hgb 6.1 L* (12.5-18.0) gm/dl Hct 21.2 L (42-50) % MCV 78.2 (78-100) fl MCH 22.5 L (26-32) pg MCHC 28.8 L (32-36) g/dl RDW 19.6 H (11.5-14.0) % Plt Count 878 H (150-450) K/mm3 MPV 9.4 (7.5-11.0) fl Gran % 71.9 H (36.0-66.0) % Eos # (Auto) 0.20 (0-0.5) Absolute Lymphs (auto) 1.72 (1.0-4.6) Absolute Monos (auto) 1.02 (0.0-1.3) Lymphocytes % 15.8 L (24.0-44.0) % Monocytes % 9.4 (0.0-12.0) % Eosinophils % 1.8 (0.00-5.0) % Basophils % 1.1 (0.0-0.4) % Absolute Granulocytes 7.80 H (1.4-6.9) Basophils # 0.12 (0-0.4) Sodium 131 L (137-145) mmol/L Potassium 4.2 (3.5-5.1) mmol/L Chloride 95 L (98-107) mmol/L Carbon Dioxide 24 (22-30) mmol/L Anion Gap 16.0 H (5-15) MEQ/L BUN 10 (9-20) mg/dL Creatinine 1.41 H (0.66-1.25) mg/dL Estimated GFR 55.1 ML/MIN Glucose 269 H (74-106) mg/dL Calcium 8.9 (8.4-10.2) mg/dL Total Bilirubin 0.50 (0.2-1.3) mg/dL AST 25 (17-59) U/L ALT 11 (0-50) U/L Alkaline Phosphatase 113 (38-126) U/L Serum Total Protein 7.1 (6.3-8.2) g/dL Albumin 4.1 (3.5-5.0) g/dL Influenza Type A Ag (NEGATIVE) Influenza Type B Ag (NEGATIVE) RSV (PCR) (Negative) SARS-CoV-2 (PCR) (NEGATIVE) Slides for Path Review YES ABO Group AB Rh Factor POSITIVE Antibody Screen NEGATIVE (NEGATIVE) Crossmatch (COMPATIBLE) 01/18/22 01/18/22 01/18/22 Range/Units 21:40 21:40 21:58 WBC (4.0-10.5) K/mm3 RBC (4.1-5.6) M/mm3 Hgb (12.5-18.0) gm/dl Hct (42-50) % MCV (78-100) fl MCH (26-32) pg MCHC (32-36) g/dl RDW (11.5-14.0) % Plt Count (150-450) K/mm3 MPV (7.5-11.0) fl Gran % (36.0-66.0) % Eos # (Auto) (0-0.5) Absolute Lymphs (auto) (1.0-4.6) Absolute Monos (auto) (0.0-1.3) Lymphocytes % (24.0-44.0) % Monocytes % (0.0-12.0) % Eosinophils % (0.00-5.0) % Basophils % (0.0-0.4) % Absolute Granulocytes (1.4-6.9) Basophils # (0-0.4) Sodium (137-145) mmol/L Potassium (3.5-5.1) mmol/L Chloride (98-107) mmol/L Carbon Dioxide (22-30) mmol/L Anion Gap (5-15) MEQ/L BUN (9-20) mg/dL Creatinine (0.66-1.25) mg/dL Estimated GFR ML/MIN Glucose (74-106) mg/dL Calcium (8.4-10.2) mg/dL Total Bilirubin (0.2-1.3) mg/dL AST (17-59) U/L ALT (0-50) U/L Alkaline Phosphatase (38-126) U/L Serum Total Protein (6.3-8.2) g/dL Albumin (3.5-5.0) g/dL Influenza Type A Ag NEGATIVE (NEGATIVE) Influenza Type B Ag NEGATIVE (NEGATIVE) RSV (PCR) NEGATIVE (Negative) SARS-CoV-2 (PCR) NEGATIVE (NEGATIVE) Slides for Path Review ABO Group Rh Factor Antibody Screen (NEGATIVE) Crossmatch COMPATIBLE COMPATIBLE (COMPATIBLE) - Discharge Discharge Date: 01/19/22 Disposition: Hospice @ [facility] Condition: Stable Prescriptions: No Action Glimepiride 2 mg [Amaryl 2 MG] 1 mg PO BREAKFAST #30 tablet Docusate Sodium 50 mg/5 ml [COLACE Liquid 50 MG/5 ML] 100 mg PO BID ml Ferrous Sulfate 325 mg [Feosol 325 mg] 325 mg PO DAILY tablet Spironolactone 25 mg PO BID #30 tablet lisinopriL [Zestril] 2.5 mg PO DAILY #30 tablet Atorvastatin Calcium 10 mg PO DAILY Metoprolol Succinate 25 mg PO DAILY Phenyleph/Mineral Oil/Petrolat [Preparation H Ointment] 28 gm RC UD #1 ea Hydrocodone/Acetaminophen [Hydrocodone-Acetamn 7.5-325/15 ] 10 ml PO Q6H PRN PRN PRN Reason: Pain Follow up with: CAROLYN TAMEZ MD [Primary Care Provider] -
[2022-01-19 05:38] LABS: ANION GAP 15.7 MEQ/L (5-15); Calcium 8.7 mg/dL (8.4-10.2); Creatinine 1 1.44 mg/dL (0.66-1.25); EST GLOMERULAR FILTRATION RATE 53.7 ML/MIN; PREALBUMIN 16.15 mg/dL (17.6-36.0); Potassium 3.8 mmol/L (3.5-5.1)
[2022-01-19 07:49] VITALS: BP 104/59; PULSE 109; O2SAT 95
== END 2022-01-19 13:38 | disposition hospice, home (50) ==
LOC: ED 21:12 → MED SURG 23:09
PROVIDERS: ADMIT General Practice; ATTEND General Practice
DX: K92.2 Gastrointestinal hemorrhage, unspecified (principal); K64.3 Fourth degree hemorrhoids; E11.9 Type 2 diabetes mellitus without complications; Z79.899 Other long term (current) drug therapy; Z20.828 Contact with and (suspected) exposure to other viral communicable diseases
CPT/HCPCS: 0241U; 36000; 36415; 36430; 80048; 80053; 84134; 85025; 85027; 86850; 86900; 86901; 86922; 93268; 99285; 99291; G0378; P9016; J1940